=== PATIENT | female | born 1950 | race Caucasian/White ===

== ENCOUNTER 2022-05-15 22:52 | Inpatient (IN) | payer MEDICARE, OTHER ==
[~2022-05-15] VITALS: Ht 165.1 cm; Wt 76.9 kg
[2022-05-15 23:15] LABS: BASOPHILS # (AUTO) 0.1 10^3/uL (0.0-0.1); BASOPHILS % (AUTO) 1 % (0-10); EOSINOPHILS % (AUTO) 0 % (0-10); HEMATOCRIT 47 % (35-52); HEMOGLOBIN 16.2 g/dL (11.5-16.0); LYMPHOCYTES # (AUTO) 2.6 10^3/uL (1.0-4.0); LYMPHOCYTES % (AUTO) 26 % (12-44); MEAN CORPUSCULAR HEMOGLOBIN 32 pg (25-34); MEAN CORPUSCULAR HGB CONC 35 g/dL (32-36); MEAN CORPUSCULAR VOLUME 91 fL (80-99); MEAN PLATELET VOLUME 9.1 fL (9.0-12.2); MONOCYTES # (AUTO) 0.5 10^3/uL (0.0-1.0); MONOCYTES % (AUTO) 5 % (0-12); NEUTROPHILS # (AUTO) 6.6 10^3/uL (1.8-7.8); NEUTROPHILS % (AUTO) 68 % (42-75); PLATELET COUNT 250 10^3/uL (130-400); WHITE BLOOD COUNT 9.8 10^3/uL (4.3-11.0)
[2022-05-15 23:23] LABS: POTASSIUM 3.8 MMOL/L (3.6-5.0)
[2022-05-15 23:24] LABS: CALCIUM 10.1 MG/DL (8.5-10.1)
[2022-05-15 23:25] LABS: TOTAL PROTEIN 7.5 GM/DL (6.4-8.2)
[2022-05-15 23:29] LABS: CREATININE SERUM 0.99 MG/DL (0.60-1.30)
[2022-05-15 23:35] LABS: BILIRUBIN,URINE NEGATIVE (NEGATIVE); CLARITY,URINE CLEAR; COLOR,URINE YELLOW; GLUCOSE, URINE (UA) 1+ (NEGATIVE); KETONES,URINE NEGATIVE (NEGATIVE); LEUKOCYTE ESTERASE ,URINE 2+ (NEGATIVE); NITRITE,URINE NEGATIVE (NEGATIVE); PROTEIN,URINE 1+ (NEGATIVE)
[2022-05-15 23:36] VITALS: BP 210/115
[2022-05-15 23:39] LABS: FIBRIN DEGRADATION PRODUCTS 1.21 UG/ML (0.00-0.49); PROTHROMBIN TIME PATIENT 13.6 SEC (12.2-14.7)
[2022-05-15 23:49] LABS: BACTERIA,URINE NEGATIVE /HPF; RBC,URINE RARE /HPF; WBC,URINE 25-50 /HPF
[2022-05-16] VITALS (11 sets, daily range): BP systolic 113–178; BP diastolic 72–149
--- NOTE | 2022-05-16 00:17 | ED Neurological Problem ---
General Chief Complaint: Neurological Problems Stated Complaint: STROKE LIKE SYMPTOMS Nursing Triage Note: pt presents to ED via EMS with right-sided facial droop, slurred speech, right-sided weakness that developed after a fall this afternoon. LKWT is 1400. according to , pt has had multiple falls in the last 48hours. pt takes daily aspirin 81mg. pt a&ox3 Source: patient, family, EMS Exam Limitations: clinical condition History of Present Illness Date Seen by Provider: May 16, 2022 Time Seen by Provider: 22:54 Initial Comments Here by EMS with report of right-sided facial droop, slurred speech and right- sided weakness after fall this afternoon. Reportedly she has had a few falls over the last couple of days. arrives and notes that she has not been right since at least 2 PM. EMS reports right facial droop, right arm and leg weakness but does follow simple commands. They do note that she is hypertensive and blood sugars were in the 200s range. EMS reported there was a lot of medicines around the house but they are unsure if she is taking any. reports that she follows with Dr. ALVARADO but does not see her regularly and does not really have medical problems but is not really following up with her doctor to be treated for any. states that she does not smoke, drink or do drugs. Patient seems to understand and is able to follow simple commands. Timing/Duration: other (10 hours ago) Severity: moderate Associated Symptoms: confusion; No fever/chills; slurred speech, weakness Allergies and Home Medications Allergies Coded Allergies: No Known Drug Allergies (Unverified , 05/15/22) Patient Home Medication List Home Medication List Reviewed: Yes Review of Systems Review of Systems Constitutional: No fever Ears, Nose, Mouth, Throat: see HPI Respiratory: No cough, No short of breath Cardiovascular: No chest pain Gastrointestinal: No nausea, No vomiting Psychiatric/Neurological: Weakness Past Brzcrmf-Rcwatc-Rrqyoi Hx Patient Social History Tobacco Use?: No Substance use?: No Alcohol Use?: No Pt feels they are or have been: No Immunizations Up To Date Influenza Vaccine Up-to-Date: Yes; Up-to-Date Past Medical History Surgeries: No Cardiac: Yes Hypertension Family Medical History Reviewed Nursing Family Hx No Pertinent Family Hx Physical Exam Vital Signs Vital Signs - First Documented 05/15/22 23:10 Temp 37.1 Pulse 96 Resp 22 B/P (MAP) 210/107 (141) Pulse Ox 98 O2 Delivery Room Air Capillary Refill : Less Than 3 Seconds Height, Weight, BMI Height: '" Weight: lbs. oz. kg; BMI Method: General Appearance: WD/WN, mild distress HEENT: PERRL/EOMI, other (Right facial droop and motor weakness right side of tongue.) Neck: full range of motion, supple Respiratory: lungs clear, normal breath sounds Cardiovascular: regular rate, rhythm, no murmur Gastrointestinal: non tender, soft Back: no CVA tenderness Extremities: non-tender, other (Weakness right arm and right leg) Neurologic/Psychiatric: alert, facial droop (Right face), motor weakness (Right arm and right leg) Crainal Nerves: abnormal speech, facial droop, facial weakness Coordination/Gait: ABN nose to finger (R) Motor/Sensory: pronator drift (R), weak motor strength RUE, weak motor strength RLE Skin: normal color, warm/dry Progress/Results/Core Measures Results/Orders Lab Results Laboratory Tests Test 05/15/22 23:00 05/15/22 23:01 05/15/22 23:21 05/15/22 23:30 Range/Units Glucometer 223 H 70-110 MG/DL White Blood Count 9.8 4.3-11.0 10^3/uL Red Blood Count 5.15 H 3.80-5.11 10^6/uL Hemoglobin 16.2 H 11.5-16.0 g/dL Hematocrit 47 35-52 % Mean Corpuscular Volume 91 80-99 fL Mean Corpuscular Hemoglobin 32 25-34 pg Mean Corpuscular Hemoglobin Concent 35 32-36 g/dL Red Cell Distribution Width 12.4 10.0-14.5 % Platelet Count 250 130-400 10^3/uL Mean Platelet Volume 9.1 9.0-12.2 fL Immature Granulocyte % (Auto) 0 % Neutrophils (%) (Auto) 68 42-75 % Lymphocytes (%) (Auto) 26 12-44 % Monocytes (%) (Auto) 5 0-12 % Eosinophils (%) (Auto) 0 0-10 % Basophils (%) (Auto) 1 0-10 % Neutrophils # (Auto) 6.6 1.8-7.8 10^3/uL Lymphocytes # (Auto) 2.6 1.0-4.0 10^3/uL Monocytes # (Auto) 0.5 0.0-1.0 10^3/uL Eosinophils # (Auto) 0.0 0.0-0.3 10^3/uL Basophils # (Auto) 0.1 0.0-0.1 10^3/uL Immature Granulocyte # (Auto) 0.0 0.0-0.1 10^3/uL Sodium Level 139 135-145 MMOL/L Potassium Level 3.8 3.6-5.0 MMOL/L Chloride Level 106 98-107 MMOL/L Carbon Dioxide Level 18 L 21-32 MMOL/L Anion Gap 15 H 5-14 MMOL/L Blood Urea Nitrogen 12 7-18 MG/DL Creatinine 0.99 0.60-1.30 MG/DL Estimat Glomerular Filtration Rate 61 BUN/Creatinine Ratio 12 Glucose Level 279 H 70-105 MG/DL Calcium Level 10.1 8.5-10.1 MG/DL Corrected Calcium 10.1 8.5-10.1 MG/DL Total Bilirubin 1.0 0.1-1.0 MG/DL Aspartate Amino Transf (AST/SGOT) 29 5-34 U/L Alanine Aminotransferase (ALT/SGPT) 30 0-55 U/L Alkaline Phosphatase 128 40-136 U/L Troponin I 0.028 <0.028 NG/ML Total Protein 7.5 6.4-8.2 GM/DL Albumin 4.0 3.2-4.5 GM/DL Prothrombin Time 13.6 12.2-14.7 SEC INR Comment 1.0 0.8-1.4 Activated Partial Thromboplast Time 29 24-35 SEC D-Dimer 1.21 H 0.00-0.49 UG/ML Urine Color YELLOW Urine Clarity CLEAR Urine pH 7.0 5-9 Urine Specific [place] 1.010 L 1.016-1.022 Urine Protein 1+ H NEGATIVE Urine Glucose (UA) 1+ H NEGATIVE Urine Ketones NEGATIVE NEGATIVE Urine Nitrite NEGATIVE NEGATIVE Urine Bilirubin NEGATIVE NEGATIVE Urine Urobilinogen 0.2 < = 1.0 MG/DL Urine Leukocyte Esterase 2+ H NEGATIVE Urine RBC (Auto) TRACE-I H NEGATIVE Urine RBC RARE /HPF Urine WBC 25-50 H /HPF Urine Crystals NONE /LPF Urine Bacteria NEGATIVE /HPF Urine Casts NONE /LPF Urine Mucus NEGATIVE /LPF Urine Culture Indicated YES My Orders Orders - DENVER ARITA MD Cbc With Automated Diff (05/15/22 22:59) Protime With Inr (05/15/22:59) Partial Thromboplastin Time (05/15/22 22:59) Comprehensive Metabolic Panel (05/15/22 22:59) Fibrin Degradation Products (05/15/22 22:59) Troponin I Paulina (05/15/22 22:59) Ua Culture If Indicated (05/15/22:59) Chest 1 View, Ap/Pa Only (05/15/22:59) Ekg Tracing (05/15/22:59) Nothing By Mouth (05/16/22 Breakfast) Accucheck Stat ONCE (05/15/22:59) Ed Iv/Invasive Line Start (05/15/22 22:59) Ed Iv/Invasive Line Start (05/15/22 22:59) Vital Signs Stroke Patient Q15M (05/15/22 22:59) Ct Head Wo-R/O Stroke (05/15/22:59) O2 (05/15/22 22:59) Intake & Output 06,14,22 (05/15/22 22:59) Monitor-Rhythm Ecg Trace Only (05/15/22 22:59) Dysphagia Screening Tool Q10MX1 (05/15/22 22:59) Ct Angio Head/Neck (05/15/22 23:41) Urine Culture (05/15/22 23:30) Iohexol Injection (Omnipaque 350 Mg/Ml 1 (05/16/22 00:30) Received Contrast (Hold Metformin- Contr (05/16/22 00:30) Ns (Ivpb) (Sodium Chloride 0.9% Ivpb Bag (05/16/22 00:30) Ns (Ivpb) (Sodium C... W/Nicardipine Iv (05/16/22 01:30) Nicardipine Iv (Pyxis Drip Kit (Cardene (05/16/22 01:33) Ns (Ivpb) (Sodium Chloride 0.9%) (05/16/22 01:33) Medications Given in ED Current Medications Medications Dose Ordered Sig/Eliot Route Start Time Stop Time Status Last Admin Dose Admin Iohexol 75 ml ONCE ONCE IV 05/16/22 00:30 05/16/22 00:50 DC 05/16/22 00:28 75 ML Sodium Chloride 100 ml ONCE ONCE IV 05/16/22 00:30 05/16/22 00:50 DC 05/16/22 00:28 80 ML Vital Signs/I&O 05/15/22 05/15/22 05/16/22 05/16/22 23:10 23:36 00:23 01:48 Temp 37.1 Pulse 96 89 84 Resp 22 19 11 B/P (MAP) 210/107 (141) 210/115 191/99 (129) 211/106 Pulse Ox 98 95 93 O2 Delivery Room Air Room Air 05/16/22 05/16/22 05/16/22 05/16/22 02:15 02:17 02:21 02:27 Temp 36.6 Pulse 100 100 99 Resp 24 22 B/P (MAP) 178/149 Pulse Ox 96 95 05/16/22 05/16/22 05/16/22 02:30 02:30 02:35 Pulse 101 92 Resp 12 20 B/P (MAP) 173/98 173/98 184/89 Pulse Ox 95 92 O2 Delivery Room Air Blood Pressure Mean: 141 FSBG Bedside Testing Finger Stick Blood Glucose: 223 Progress Progress Note : Progress Note Seen and evaluated. Stroke protocol initiated. IV x2, labs including CBC, CMP, D-dimer, coags and UA, chest x-ray, CT head rule out stroke ordered. Monitor patient. Patient is outside of tPA window as last known well time was at 1400 today but has had multiple falls over the last 2 to 3 days and has been not acting right in that period of time. She does have longstanding history of medical problems but does not really follow-up with the doctor well and usually sees Dr. ALVARADO. Noted to be quite hypertensive on arrival. Monitor patient. Initial stroke scale 8 Differential includes ischemic versus hemorrhagic stroke, electrolyte abnormality, intracranial mass 2338: I did discuss CT scan results with the radiologist. I do not see any intracranial hemorrhage on my interpretation. Radiology does report possibility of subacute stroke in the left victoria radiata. We will get CT angiogram of the head and neck. Chest x-ray shows no acute findings on my interpretation. Labs reviewed and normal white count with concentrated hemoglobin noted. Coags normal with D-dimer slightly elevated at 1.21. Chemistries are okay overall except for glucose is elevated at 279 and LFTs are normal. UA does show 2+ leuks and 25-50 WBCs with 0 bacteria and no nitrites. We will give normal saline 500 mL bolus to clear contrast. Monitor patient. Will need admission to the ICU. 0120: CT angiogram completed but report pending. I do not see any significant large vessel occlusion on my interpretation pending radiology report. I did make contact with the stroke neurologist at [facility], Dr. Torres initiated at 0111. We reviewed all current findings and data including the CT of the head as well as CT angiogram. We did cloud the images to and he did review those images. No obvious large vessel occlusion on his evaluation of CT angiogram of head neck. Stroke findings most consistent with hypertensive stroke and he is recommending that we do bring blood pressure down into the range of around 160. We will initiate nicardipine drip to bring blood pressure 1 50-170 systolic with further blood pressure management to a more normal range tomorrow. He agrees with aspirin. Patient did fail dysphagia screen so we will give rectal aspirin 300 mg DE now. All findings and concerns discussed with patient who agrees to admission. I did discuss the case with Dr. Sterling, on-call for hospitalist service and she accepts patient for admission to the ICU. I will discuss the case with the eICU team as well. 0156: Discussed with the eICU team. Findings and recommendations reviewed. Initial ECG Impression Date: May 15, 2022 Initial ECG Impression Time: 23:21 Initial ECG Rate: 91 Initial ECG Rhythm: Normal Sinus Comment Sinus rhythm with occasional PVCs. Low voltage in lead II. No obvious ST elevation WA. Left axis deviation. LVH noted. Interpreted by me. Diagnostic Imaging Diagonstic Imaging: CT Plain Films/CT/US/NM/MRI: head Comments Patchy areas of hypoattenuation in the left victoria radiata are compatible with an infarct which is favored to be remote or subacute. MRI may be considered for further characterization, if prior imaging is unavailable for comparison. No acute cortical infarct. No acute intracranial hemorrhage or significant mass e ffect. Chronic and involutional changes. This was discussed with the radiologist on-call at 2338. Reviewed: Reviewed Night Hawk Study, Reviewed by Me, Discussed w/Radiologist Diagonstic Imaging: CT Plain Films/CT/US/NM/MRI: head, other Comments CT angiogram head and neck results called at 0417. No significant stenosis noted. Discussed with radiologist. Reviewed: Reviewed by Me, Discussed w/Radiologist Critical Care Note Critical Care Start Time: 22:54 Stop Time: 01:55 Total Time (minutes) 45 Departure Communication (Admissions) Time/Spoke to Admitting Phy: 01:27 Time/Spoke to Consulting Phy: 01:55 Impression Primary Impression: Acute CVA (cerebrovascular accident) Additional Impression: Hypertensive emergency Disposition: 09 ADMITTED INPATIENT Condition: Critical Admissions Decision to Admit Reason: Admit from ER (General) Decision to Admit/Date: May 16, 2022 Time/Decision to Admit Time: 01:27 DENVER ARITA MD May 16, 2022 00:16
[2022-05-16] MEDS ORDERED: HOLD METFORMIN - RECEIVED CONTRAST 20 ML VIAL IV SCH (00:30)
[2022-05-16] MEDS ORDERED: IOHEXOL 350 MG/ML 100 ML (OMNIPAQUE 350) VIAL IV ONE (00:30)
[2022-05-16] MEDS ORDERED: NS 100 ML (IVPB) BAG IV ONE (00:30)
[2022-05-16] MEDS ORDERED: niCARdipine IV 50 MG in NS (IVPB) 230 ML IV SCH (01:30)
[2022-05-16] MEDS ORDERED: NS (IVPB) 250 ML ONE (01:33)
[2022-05-16] MEDS ORDERED: niCARdipine IV PYXIS DRIP KIT = 50 MG X 2 VIALS ONE (01:33)
[2022-05-16] MEDS ORDERED: ONDANSETRON 4 MG/2 ML (SDV) Z0FRAN IV PRN (03:15)
[2022-05-16] MEDS ORDERED: CATHETER FLUSH 10 ML SYR IVP PRN (03:15)
[2022-05-16] MEDS ORDERED: NS IV 500 ML 500 ML IV PRN (03:15)
[2022-05-16] MEDS ORDERED: NS IV 1000 ML 1,000 ML IV SCH (03:15)
--- NOTE | 2022-05-16 04:30 | Tele-ICU Progress Note ---
Progress Note 72F with HTN admitted with subacute CVA. Presented with acute right sided facial droop, slurred speech and R weakness after a fall this afternoon. Has had multiple falls over the past several days. Last normal was prior to 1400. On arrival to ED BP in the 200s/100s. Per ED report, CT head with patchy areas of hypoattenuation concerning for subacute CVA. No large vessel occlusions on CTA. On arrival to ICU patient is improving. She is alert, answering appropriately. Does have some word finding problems. Right sided weakness is improving. A/P: - CVA: Out of the window for intervention. Per stroke consult, maintain SBP around 160. Nicardipine ongoing. - HTN: cardene gtt with goal SBP 130-160 per teleStroke - hyperglycemia: sliding scale, A1C Patient assessed via real time audiovisual communication system. CCT 17 min Focused Exam Height, Weight, BMI Height: '" Weight: lbs. oz. kg; 28.21 BMI Method: LENNY PALMER MD May 16, 2022 04:30
[2022-05-16] MEDS ORDERED: cefTRIAXone 1 GM PRE-MIX 50 ML IV SCH (05:00)
[2022-05-16] MEDS ORDERED: MAGNESIUM 1 GM/100 ML IVPB 100 ML IV SCH (06:00)
[2022-05-16] MEDS ORDERED: KCL 20 MEQ TAB (K-DUR) PO SCH (06:00)
[2022-05-16] MEDS ORDERED: POTASSIUM CL 10MEQ/50ML IVPB 50 ML IV SCH (06:00)
--- NOTE | 2022-05-16 06:03 | Diagnostic Imaging Report ---
PROCEDURE: CT head wo r/o stroke. TECHNIQUE: Multiple contiguous axial images were obtained through the brain without the use of intravenous contrast. Auto Exposure Controls were utilized during the CT exam to meet ALARA standards for radiation dose reduction. INDICATION: Acute neurologic deficit with facial drooping. FINDINGS: The ventricles are normal in size, shape and position. There are no masses or hemorrhages. There are no extra-axial fluid collections. There is decreased density in the left victoria radiata consistent with ischemic injury. IMPRESSION: There is a 3.4 x 2.2 cm area of decreased density in left victoria radiata consistent with ischemic injury. I agree with preliminary interpretation. Dictated by: Dictated on workstation # [id number]
--- NOTE | 2022-05-16 06:07 | Diagnostic Imaging Report ---
Indication: Facial droop Portable chest 7:21 PM Heart size and pulmonary vascularity are normal. Lungs are clear. There are no effusions or pneumothoraces. IMPRESSION: No acute abnormalities in the chest Dictated by: Dictated on workstation # [id number]
[2022-05-16] MEDS: inSUlin ASPART (NovoLOG) 1 UNIT/0.01 ML (CHARGE PER UNIT) SQ SCH ×2 (06:18→12:21)
--- NOTE | 2022-05-16 06:43 | Diagnostic Imaging Report ---
PROCEDURE: CT angiography of the head and CT angiography of the neck with and without contrast. TECHNIQUE: Contiguous noncontrast images were obtained from the skull base through the vertex. After intravenous contrast administration, helical CT angiography of the neck was performed. Source data was reformatted into 3D MIP projections. Delayed post contrast acquisition was also obtained. Auto Exposure Controls were utilized during the CT exam to meet ALARA standards for radiation dose reduction. INDICATION: "Stroke" CT HEAD: Delayed postcontrast enhanced head CT shows multifocal periventricular white matter disease likely small vessel sequelae as well as multiple greater left ganglier and thalamic lacunar infarcts of uncertain acuity. No sulcal effacement or corine cortical edema and no abnormal parenchymal or meningeal enhancement. There is patency of the dural venous sinuses. CT ANGIOGRAM NECK: There is conventional branching of the great vessels. The right cervical vertebral dominant the left is very small throughout and difficult to visualize. Bilateral common carotids patent. There is mild atherosclerotic changes at the left greater than right carotid bulbs without stenosis. The cervical internal carotids widely patent throughout. No cervical arterial dissection identified or appreciable segmental occlusion. Again visualization of the diminutive left vertebral artery is difficult at multiple levels. CT ANGIOGRAM HEAD: A tiny intradural left vertebral artery probably terminates as the PICA but is very difficult to visualize. Calcified plaque in the intradural right vertebral non-stenosing. The basilar patent. The [employer] segments patent. The intracranial ICAs showed diffuse calcified plaque throughout their cavernous segments with less than 50% stenosis. The A1 segments, the A common, the anterior cerebral arteries distally are patent. Bilateral middle cerebral arterial segments and primary branches patent. No large vessel occlusion or thrombus. Impression: Multiple lacunar infarcts in the basal ganglia of uncertain acuity. Some atrophy and chronic appearing white matter disease. No hemorrhage. CT angio neck shows a diminutive left vertebral and a dominant right vertebral. The very small left vertebral caliber limits its visualization at multiple segments. CT angiogram head showed intracranial carotid atherosclerotic vascular calcifications without hemodynamically significant stenosis. No appreciable large vessel occlusion or thrombus. No aneurysm identified. There is likely variant anatomy with termination of the diminutive left vertebral as the PICA. Dictated by: Dictated on workstation # [id number]
[2022-05-16] MEDS: niCARdipine IV 50 MG in NS (IVPB) 230 ML IV SCH ×2 (07:14→10:30)
[2022-05-16] MEDS ORDERED: ACETAMINOPHEN 325 MG TABLET PO PRN (07:45)
--- NOTE | 2022-05-16 08:13 | Tele-ICU Progress Note ---
Subjective Date Seen by a Provider: May 16, 2022 Time Seen by a Provider: 08:07 Subjective/Events-last exam (Tele-ICU Physician , Progress Note ) Service provided via interactive audio and video telecommunications E-CARE system to a patient admitted to ICU bed in [facility]. Patient is seen today due to persistent need of ICU care Available chart/ vitals / labs / Images reviewed Video assessment done using teleICU camera, rest of exam as per RN Discussed with RN Events overnight : Afebrile hemodynamically stable Respiratory - I/O = pos Drips: LR 50 Pressors- IV Nicardipine @ 2.5, BP is 137/ Admitted on 05/15 with subacute CVA-out of for intervention, Marked HTN Now on IV Nicardipine @ ALert, having problems with word retrieval seen by speech, given minced and moist diet Sepsis Event Evaluation Height, Weight, BMI Height: '" Weight: lbs. oz. kg; 28.21 BMI Method: Exam Exam Patient acknowledged, consented, and participated in this virtual visit which was conducted using real time audio/video Vital Signs Date Time Temp Pulse Resp B/P (MAP) Pulse Ox O2 Delivery O2 Flow Rate FiO2 05/16/22 07:00 93 144/76 (104) 94 05/16/22 07:00 90 05/16/22 06:45 92 20 142/74 (104) 93 05/16/22 06:30 92 20 141/74 96 05/16/22 06:15 93 149/75 95 05/16/22 06:00 95 155/78 94 05/16/22 05:45 96 154/75 95 05/16/22 05:35 113/86 05/16/22 05:30 95 20 113/86 96 05/16/22 05:30 95 113/86 96 05/16/22 05:15 96 157/72 93 05/16/22 05:00 96 148/78 05/16/22 04:45 95 160/75 (96) 95 05/16/22 04:45 95 160/75 95 05/16/22 04:30 98 159/76 (103) 94 05/16/22 04:15 96 151/77 (97) 93 05/16/22 04:00 101 24 153/80 (107) 94 05/16/22 03:45 98 158/80 (106) 94 05/16/22 03:30 98 22 150/81 (104) 93 Room Air 05/16/22 03:29 153/87 05/16/22 03:15 101 20 153/87 (117) 96 Room Air 05/16/22 03:10 Room Air 05/16/22 03:00 98 20 155/76 (103) 95 05/16/22 02:45 97 22 154/81 (109) 94 05/16/22 02:41 96 22 163/79 (107) 94 Room Air 05/16/22 02:35 92 20 184/89 92 Room Air 05/16/22 02:30 173/98 05/16/22 02:30 101 12 173/98 95 05/16/22 02:27 99 22 95 05/16/22 02:21 100 05/16/22 02:17 100 24 178/149 96 05/16/22 02:15 36.6 05/16/22 01:48 211/106 05/16/22 00:23 84 11 191/99 (129) 93 Room Air 05/15/22 23:36 89 19 210/115 95 05/15/22 23:10 37.1 96 22 210/107 (141) 98 Room Air I & O 05/16/22 07:00 Intake Total 50 ml Output Total 1750 ml Balance -1700 ml Height & Weight Height: '" Weight: lbs. oz. kg; 28.21 BMI Method: General Appearance: No Apparent Distress Respiratory: Lungs Clear Cardiovascular: Regular Rate, Rhythm, No Edema Capillary Refill: Less Than 3 Seconds Gastrointestinal: normal bowel sounds, non tender, soft Neurologic/Psychiatric: Other (right facial droop, right sided weakness) Results Lab Laboratory Tests 05/15/22 23:01 Assessment/Plan Assessment/Plan 72 yo F with subacute CVA and uncontrolled HTN, will continue on IV nicardipine, target is 130-160 speech and PT to see, need to change to oral HTN meds at later date Hb 16.2, might indicate reactive polycythemia from nocturnal hypoxia from [facility] Critical Care: Critically Ill Patient Time spent with patient (mins): 25 LYNNE BRYAN MD May 16, 2022 08:13
[2022-05-16 08:21] LABS: CHOLESTEROL 198 MG/DL (< 200); HDL CHOLESTEROL 62 MG/DL (40-60); TRIGLYCERIDES 61 MG/DL (<150); VLDL CHOLESTEROL 12 MG/DL (5-40)
[2022-05-16] MEDS ORDERED: ASPIRIN 325 MG (5 GR) TABLET PO SCH (09:00)
--- NOTE | 2022-05-16 09:23 | ST Dysphagia Evaluation ---
Speech Evaluation-General Medical Diagnosis CVA Onset Date: May 16, 2022 Therapy Diagnosis Therapy Diagnosis: oropharyngeal dysphagia Precautions Precautions: Fall, Aspiration Precautions/Isolations: Aspiration, Fall Prevention Referral Referring Physician: Laura Sterling Reason for Referral: Evaluation/Treatment Medical History Pertinent Medical History: CVA Current History CVA Reviewed History: Yes Social History Home: Single Level Current Living Status: Spouse Speech PLF/Current-Dysphagia Prior Level of Function Pt reported no diet modifications or recommendations. Pt reported independent self-feeding with regular solids, thin liquids. Subjective Pt was alert and cooperative. Pt reported no PO intake today or yesterday. Nursing reported she participated in a bedside swallow with staff yesterday and was determined to be NPO. Cognitive Status Patient Orientation: Person, Eyes Open Oral Motor Skills Dentition: Natural Denture Type: Full- Upper & Lower Ability to Follow Directions: Good Oral Expression Ability: Moderate Impairment Voice Voice Phonatory-Based Quality: Hoarse Voice Pitch: Normal Voice Loudness: Normal Face Facial Symmetry: Asymmetrical right facial droop Oral-Facial Assessment Oral-Facial Dentition: Normal Labial Seal Description: Droops Right Smile: Droops Right Puff Cheeks: Reduced Strength Lingual Protrusion: Abnormal deviates right Lingual ROM: Abnormal limited elevation and effortful lateralization Lingual Strength: Abnormal weakness Gag Reflex Response: Normal Pharynx Velopharyngeal Move.: Weak on Right Volitional Dry Swallow: Yes Voluntary Cough: Yes weak Can Clear Throat Volitionally: Yes weak Productive Cough: Yes Productive Throat Clear: Yes Dysphagia Evaluation Consistencies Presented: Thin Liquid, Mechanical Soft, Ground, Pureed Tolerated mech soft and puree solids with no overt s/s aspiration. Oral Phase: Oral Residue minimal residue observed. clearance with liquid. Pharyngeal Phase: Multiple Swallow Attempts Funct. Velo/Pharyngeal Symptom: Cough After Swallow cough x1/10 thin liquid trials via straw due to large bolus intake. Burped x1 following PO intake. Dietary Recommendations: Mechanical Soft Liquid Recommendations: Thin thin liquid via straw with monitoring and verbal cues to take single sips. Mechanical soft/minced and moist solids recommended at this time due to toleration and no overt s/s aspiration. Swallowing Precautions: Decreased Rate of Oral Intake, Liquids from Straw, Oral Supervision Staff, Small Bites and Sips, Sitting Upright 90 Degrees, Sitting 90 Degrees 30 Post Intake, Tilt Head Left 94-95% O2 throughout PO trials Dysphagia Evaluation Summary Pt demostrates large bites and sips requiring frequent verbal cues to decrease rate and size of bolus. Pt demonstrates right sided weakness and was given safe swallow strategy of head tilt to left side. Mechanical soft/minced and moist solids and thin liquids via straw are recommended diet at this time. Speech therapy treatment is recommended at this time for safe swallow precautions and strategies as well as continued diet texture analysis and monitoring. Barriers to Learning fatigue Speech Short Term Goals Short Term Goals Short Term Goals 1) Pt will demonstrate adequate use of swallowing techniques or compensatory strategies (e.g. head tilt left, head turn right, effortful swallow) to eliminate s/s of laryngeal penetration and/or aspiration of mechanical soft diet/thin liquids with minimal verbal cues during 9 out of 10 therapeutic trials. 2) Pt will demonstrate the ability to adequately self-monitor swallowing skills and perform appropriate safe swallow precautions (e.g. small bites/sips, alternating consistencies, sitting upright 90 degrees, etc) to reduce s/s of aspiration in 9 out of 10 therapeutic trials Speech Assembly Inspector Goals Assembly Inspector Goals Pt will utlize compensatory strategies with optimum safety and efficiency of swallowing function on PO intake without overt s/s aspiration for the highest appropriate diet level Speech-Plan Patient/Family Goals Patient/Family Goals: advanced diet, increased oral intake Treatment Plan Speech Therapy Treatment Plan: Continue Plan of Care Treatment Duration: May 30, 2022 Frequency: 5 times per week Estimated Hrs Per Day: .25 hour per day Rehab Potential: Good Barriers to Learning: fatigue Pt/Family Agrees to Plan: Yes Safety Risks/Education Teaching Recipient: Patient Teaching Methods: Discussion Response to Teaching: Verbalize Understanding Education Topics Provided: safe swallow precautions and strategies. ST treatment services. Discharge Recommendations Home & Family Time Speech Therapy Time In: 08:46 Speech Therapy Time Out: 09:17 DATE: May 16, 2022 Total Billed Time: 31 Billed Treatment Time 1, BARB, ADDY KRAMER May 16, 2022 09:23
[2022-05-16] MEDS ORDERED: ASPI-1238 PO (09:47)
[2022-05-16] MEDS ORDERED: OMEG1CAP58 PO (09:47)
--- NOTE | 2022-05-16 10:54 | Speech Therapy Progress Note ---
Therapy Progress Note Refer to Bedside Swallow Report. Pt was seen for evaluation and treatment. Pt tolerated thin liquids via straw and mech soft/minced and moist solids. At this time, the largest barriers towards diet advancement include overall fatigue and weakness. Continue with the current plan of care: Recommendations: - Diet recommendation of thin liquid via straw. Pt requires verbal cues and monitoring to take small, single sips. - Diet recommendation of mechanical soft/minced and moist solids. Pt requires verbal cues and monitoring to take small bites and alternate consistencies for clearance of minimal oral residue. - Excellent and frequent oral care to be provided to reduce the transfer of oral bacteria to the lungs should aspiration of secretions be experienced. - Continue effortful swallowing exercise and compensatory strategies (e.g. head tilt left) - Speech pathology to continue daily evaluation of the oropharyngeal swallow response. ADDY DOMINGUEZ 17, 2023 10:54
--- NOTE | 2022-05-16 11:40 | ST Cognitive Linguistic Eval ---
Speech Evaluation-General Medical Diagnosis CVA Onset Date: May 16, 2022 Therapy Diagnosis Therapy Diagnosis: severe cognitive-lingustic impairment Precautions Precautions: Fall, Aspiration Precautions/Isolations: Aspiration, Fall Prevention Referral Referring Physician: Aiyana Dooley Reason for Referral: Evaluation/Treatment Medical History Pertinent Medical History: CVA Current History CVA Reviewed History: Yes Social History Home: Single Level Current Living Status: Spouse Speech PLF-Current Status Prior Level of Function independent, lived with spouse Subjective Pt was alert and cooperative upon entry in room. Pt was willing to participate in cognitive-linguistic evaluation Language Eval: Auditory Comprehends Simple Yes/No Ques: Functional Indent/Objects Multiple [place]: Functional Follows 1-Step Commands: Functional Follows Complex Directions: Mild Follows General Conversations: Functional Language Eval: Verbal Language Completes Spontaneous Greeting: Functional Produces Auto, Serial Info: Functional Imitates Simple Words/Phrases: Functional Word Finding: Moderate Requests Basic Needs: Functional States Basic Personal Info: Functional Expresses Complex Ideas: Moderate Objective Cognitive Domain Attention: WNL Memory: Severe Problem Solving: Severe Executive Functions: Severe Visuospatial Skills: Moderate Composite Severity Rating: Severe Clock Drawing Severity Rating: Severe Objective Formal/Standardized Tests [facility] Mental Status Examination ([facility]) Results 10/29 Oral Motor/Speech Production Pt was 100% intelligible although demonstrated some speech sound errors with self-correction. Pt's speech was slow. She was able to produce 8+ word utterances. Impression Pt scored 8/30 on the SLUMS indicating "dementia" range cognition. Pt was oriented to [place], year, and state. She had difficulty with delayed recall, problem solving, working memory, and visuospatial tasks. Speech Short Term Goals Short Term Goals Short Term Goals 1) Pt will demonstrate adequate use of swallowing techniques or compensatory strategies (e.g. head tilt left, head turn right, effortful swallow) to eliminate s/s of laryngeal penetration and/or aspiration of mechanical soft diet/thin liquids with minimal verbal cues during 9 out of 10 therapeutic trials. 2) Pt will recall novel information with 70% accuracy using learned internal/external aids and strategies with minimal verbal/visual cues. Speech Mine Captain Goals Group Home Goals 1) Pt will utlize compensatory strategies with optimum safety and efficiency of swallowing function on PO intake without overt s/s aspiration for the highest appropriate diet level 2) Pt will recall novel information independently with 80% accuracy using learned memory strategies Speech-Plan Patient/Family Goals Patient/Family Goals: return to home, improved cognition Treatment Plan Speech Therapy Treatment Plan: Continue Plan of Care Treatment Duration: May 30, 2022 Frequency: 4 times per week Estimated Hrs Per Day: .25 hour per day Rehab Potential: Good Barriers to Learning: fatigue, weakness Pt/Family Agrees to Plan: Yes Safety Risks/Education Teaching Recipient: Patient Teaching Methods: Discussion Response to Teaching: Verbalize Understanding Education Topics Provided: memory strategies, verbal cues Time Speech Therapy Time In: 11:08 Speech Therapy Time Out: 11:24 DATE: May 16, 2022 Total Billed Time: 16 Billed Treatment Time 1, ADDY ALLAN May 16, 2022 11:39
--- NOTE | 2022-05-16 11:55 | Physical Therapy Evaluation ---
PT Evaluation-General Medical Diagnosis Admission Date May 16, 2022 at 02:35 Medical Diagnosis: CVA Onset Date: May 16, 2022 Therapy Diagnosis Therapy Diagnosis: impaired mobility/weakness Precautions Precautions/Isolations: Aspiration, Fall Prevention Referral Physician: Asher Reason for Referral: Evaluation/Treatment Medical History Pertinent Medical History: CVA, DM, HTN Current History EMS secondary to multiple falls and right sided weakness Reviewed History: Yes Social History Current Living Status: Significant Other Prior Prior Level of Function SCALE: Activities may be completed with or without assistive devices. 6-Oybpmeyhnp-vktzrwd completes the activity by him/herself with no assistance from a helper. 5-Set-up or Clean-up Assistance-helper sets up or cleans up; patient completes activity. [place] assists only prior to or following the activity. 4-Supervision or Touching Assistance-helper provides verbal cues and/or touching/steadying and/or contact guard assistance as patient completes activity. Assistance may be provided throughout the activity or intermittently. 3-Partial/Moderate Assistance-helper does LESS THAN HALF the effort. [place] lifts, holds or supports trunk or limbs, but provides less than half the effort. 2-Substantial/Maximal Assistance-helper does MORE THAN HALF the effort. [place] lifts or holds trunk or limbs and provides more than half the effort. 6-Fykbwzhhy-uvonpw does ALL the effort. Patient does none of the effort to complete the activity. Or, the assistance of 2 or more helpers is required for the patient to complete the activity. If activity was not attempted, code reason: 7-Patient Refused. 9-Not Applicable-not attempted and the patient did not perform the activity before the current illness, exacerbation or injury. 10-Not Attempted due to Environmental Limitations-(lack of equipment, weather restraints, etc.). 88-Not Attempted due to Medical Conditions or Safety Concerns. Bed Mobility: 6 Transfers (B,C,W/C): 6 Gait: 6 Indoor Mobility (Ambulation): Independent Prior Devices Use: Walker Prior Device Use: cane PT Evaluation-Current Subjective Patient agrees to PT. Objective Patient Orientation: Person, Time, Situation Attachments: Rhodes Catheter, IV ROM/Strength ROM Lower Extremities bilateral LE WFL Strength Lower Extremities right knee flexion/extension 2+/5; hip flexion 2/5; DF/PF 3/5 left knee flexion/extension 3+/5; hip flexion 3+/5; DF/PF 3+/5 Integumentary/Posture Bladder Incontinence: Rhodes Cath Posture WFL Neuromuscular (Tone, Coordination, Reflexes) diminished right LE/diminished proprioception Sensory Vision: Functional Hearing: Functional Transfers Lying to Sitting/Side of Bed(Q: 2 Sit to Stand (QC): 3 Chair/Gsn-qc-Oetqw Xfer(QC): 3 Gait Mode of Locomotion: Walk Anticipated Mode of Locomotion: Walk Walk 10 feet (QC): 2 Gait Assistive Device: FWW Comments/Gait Description right LE lag due to diminished coordination Balance Sitting Static: Fair Sitting Dynamic: Fair Standing Static: Poor Standing Dynamic: Poor Assessment/Needs Patient will benefit from skilled PT to address functional strength and mobility to improve current LOF. Patient presents with right hemiparesis. Rehab Potential: Guarded PT Director Sales Training Goals Director Sales Training Goals PT Usp Goals Time Frame: May 31, 2022 Roll Left & Right (QC): 4 Sit to Lying (QC): 4 Lying-Sitting on Side/Bed(QC): 4 Sit to Stand (QC): 4 Chair/Ijk-su-Wpgip Xfer(QC): 4 Toilet Transfer (QC): 4 Walk 10 feet (QC): 3 Walk 50ft with 2 Turns (QC): 3 PT Plan Problem List Problem List: Activity Tolerance, Functional Strength, Safety, Balance, Gait, Transfer, Bed Mobility Treatment/Plan Treatment Plan: Continue Plan of Care Treatment Plan: Bed Mobility, Education, Functional Activity Ha, Functional Strength, Gait, Safety, Therapeutic Exercise, Transfers Treatment Duration: May 31, 2022 Frequency: 6 times per week Estimated Hrs Per Day: .25 hour per day Patient and/or Family Agrees t: Yes Time Time In: 1125 Time Out: 1141 DATE: May 16, 2022 Total Billed Treatment Time: 16 Total Billed Treatment 1 visit [facility] 16 min WOJCIECH SAMS PT May 16, 2022 11:55
--- NOTE | 2022-05-16 13:53 | Occupational Therapy Eval ---
OT Evaluation-General/PLF Medical Diagnosis Admission Date May 16, 2022 at 02:35 Medical Diagnosis: CVA Onset Date: May 16, 2022 Therapy Diagnosis Therapy Diagnosis: CVA, Right side weakness Precautions Precautions/Isolations: Aspiration, Fall Prevention Weight Bear Status Weight Bearing Restriction: Weight Bearing/Tolerated Referral Physician: Asher Henry Reason: Self Care, Evaluation/Treatment, Strengthening/ROM Medical History Pertinent Medical History: CVA, DM, HTN Current History CVA right side weakness, facial palsy, cognitive impaired Reviewed History: Yes Social History Home: Single Level Current Living Status: Significant Other ADL-Prior Level of Function SCALE: Activities may be completed with or without assistive devices. 6-Ggoxlegjtk-umhoofo completes the activity by him/herself with no assistance from a helper. 5-Set-up or Clean-up Assistance-helper sets up or cleans up; patient completes activity. [place] assists only prior to or following the activity. 4-Supervision or Touching Assistance-helper provides verbal cues and/or touching/steadying and/or contact guard assistance as patient completes activity. Assistance may be provided throughout the activity or intermittently. 3-Partial/Moderate Assistance-helper does LESS THAN HALF the effort. [place] lifts, holds or supports trunk or limbs, but provides less than half the effort. 2-Substantial/Maximal Assistance-helper does MORE THAN HALF the effort. [place] lifts or holds trunk or limbs and provides more than half the effort. 6-Mnvicbnop-clxbrt does ALL the effort. Patient does none of the effort to complete the activity. Or, the assistance of 2 or more helpers is required for the patient to complete the activity. If activity was not attempted, code reason: 7-Patient Refused. 9-Not Applicable-not attempted and the patient did not perform the activity before the current illness, exacerbation or injury. 10-Not Attempted due to Environmental Limitations-(lack of equipment, weather restraints, etc.). 88-Not Attempted due to Medical Conditions or Safety Concerns. Self Care: Independent Functional Cognition: Independent Drive Self: No OT Current Status Subjective ALERT AND AGREEABLE TO OT Mental Status/Objective Patient Orientation: Person, Place, Time (), Situation Attachments: Rhodes Catheter, IV, Telemetry Current Glasses/Contacts: Yes Upper Extremity ROM LUE ROM WFLS RUE SHOULDER FLEXION 30 W/ COMPENSATION, 30 ABDUCTION, ELBOW FLEX/XT WNL Upper Extremity Strength LUE +4/5, RUE -3/5 ADL-Treatment Eating (QC): 5 Oral Hygiene (QC): 4 Shower/Bathe Self (QC): 88 Upper Body Dressing (QC): 1 Lower Body Dressing (QC): 1 On/Off Footwear (QC): 2 Toileting Hygiene (QC): 1 Education OT Patient Education: Exercise program, Modified ADL techniques, Progress toward Goal/Update tx plan, Purpose of tx/functional activities, Reviewed precautions, Rehab process, Safety issues, Transfer techniques, Use of adapted equipment Teaching Recipient: Patient Teaching Methods: Demonstration, Discussion Response to Teaching: Verbalize Understanding, Reinforcement Needed OT Shaving Machine Operator Goals Shaving Machine Operator Goals Eating (QC): 6 Oral Hygiene (QC): 6 Toileting Hygiene (QC): 4 Shower/Bathe Self (QC): 4 Upper Body Dressing (QC): 4 Lower Body Dressing (QC): 4 On/Off Footwear (QC): 4 1=Demonstrate adherence to instructed precautions during ADL tasks. 2=Patient will verbalize/demonstrate understanding of assistive devices/modifications for ADL. 3=Patient will improve strength/tolerance for activity to enable patient to perform ADL's. OT Education/Plan Problem List/Assessment Assessment: Decreased Activ Tolerance, Decreased Safety Aware, Decreased UE Strength, Impaired Bed Mobility, Impaired Coordination, Impaired Funct Balance, Impaired Self-Care Skills, Restricted Funct UE ROM Discharge Recommendations Plan/Recommendations: Continue POC Therapy Discharge Recommendati: Post Acute OT Treatment Plan/Plan of Care Treatment,Training & Education: Yes Patient would benefit from OT for education, treatment and training to promote independence in ADL's, mobility, safety and/or upper extremity function for ADL's. Plan of Care: ADL Retraining, Functional Mobility, Group Exercise/Act as Ind, UE Funct Exercise/Act, UE Neuromus Re-Ed/Coord Treatment Duration: May 24, 2022 Frequency: 3 times per week (3-5 TIMES PER WEEK) Estimated Hrs Per Day: .25 hour per day Agreement: Yes Rehab Potential: Guarded UP IN CHAIR ALL NEEDS MET Time Start Time: 12:50 Stop Time: 13:13 DATE: May 16, 2022 Total Time Billed (hr/min): 23 Billed Treatment Time EVM, EX 23 MIN EVERARDO VANCE OT May 16, 2022 13:53
[2022-05-16] MEDS ORDERED: amLODIPine 10 MG (NORVASC) TAB PO ONE (14:00)
[2022-05-16] MEDS ORDERED: hydrALAZINE (APESOLINE) 20 MG/ML VIAL IV PRN (14:00)
[2022-05-16] MEDS ORDERED: amLODIPine 10 MG (NORVASC) TAB ONE (14:00)
[2022-05-16] MEDS ORDERED: ATOR80TA76 PO (14:02)
[2022-05-16] MEDS ORDERED: inSUlin ASPART (NovoLOG) 1 UNIT/0.01 ML (CHARGE PER UNIT) SQ SCH (16:00)
[2022-05-17] MEDS ORDERED: amLODIPine 10 MG (NORVASC) TAB PO SCH (09:00)
--- NOTE | 2022-05-17 19:15 | Short Stay Summary-Hospitalist ---
History of Present Illness HPI/Chief Complaint Karena Kwong is a 72 year old female with no known past medical history who presented after a fall. She was also having slurred speech. She had a facial droop. She was feeling weak. She does not take any medications regularly. She does not follow with a physician. She denies fevers. She denies shortness of breath. She denies chest pain. She denies abdominal pain. Source: patient Exam Limitations: no limitations Date Seen 05/16/22 Time Seen by a Provider: 09:35 Attending Physician Vera Lim MD PCP Admitting Physician: Laura Sterling DO Attending Physician: Gold Lima MD Referring Physician Date of Admission May 16, 2022 at 02:35 Home Medications & Allergies Home Medications Reviewed patient Home Medication Reconciliation performed by pharmacy medication reconciliations casting technician and/or nursing. Patients Allergies have been reviewed. Allergies Allergies Coded Allergies No Known Drug Allergies (Unverified05/15/22) Past Evtkeoh-Ubmenw-Tnplfh Hx Patient Social History Tobacco Use?: No Smoking Status: Never a Smoker Smokeless Tobacco Frequency: Never a User Use of E-Cig and/or Vaping Demarcus: Never a User Substance use?: No Alcohol Use?: No Pt feels they are or have been: No Current Status status: No status: No Advance Directives: No Communicates: Verbally Primary Language: Yoruba Preferred Spoken Language: Yoruba Is interpretation needed?: No Sensory deficits: Vision impairment Implanted or Applied Medical D: None Past Medical History Hypertension Family Medical History Reviewed Nursing Family Hx No Pertinent Family Hx Review of Systems Constitutional: weakness Respiratory: no symptoms reported Cardiovascular: no symptoms reported Gastrointestinal: no symptoms reported Physical Exam Physical Exam Vital Signs Vital Signs - First Documented 05/15/22 23:10 Temp 37.1 Pulse 96 Resp 22 B/P (MAP) 210/107 (141) Pulse Ox 98 O2 Delivery Room Air Capillary Refill : Less Than 3 Seconds Height, Weight, BMI Height: '" Weight: lbs. oz. kg; 28.21 BMI Method: General Appearance: No Apparent Distress, WD/WN HEENT: PERRL/EOMI, Pharynx Normal Neck: Normal Inspection, Supple Respiratory: Lungs Clear, No Respiratory Distress Cardiovascular: Regular Rate, Rhythm, No Edema, No Murmur Gastrointestinal: Normal Bowel Sounds, Non Tender, Soft Extremity: Normal Inspection, No Pedal Edema Neurologic/Psychiatric: Alert, Facial Droop, Motor Weakness Skin: Normal Color, Warm/Dry Results Results/Procedures Labs Laboratory Tests 05/15/22 23:01 Patient resulted labs reviewed. Imaging: Reviewed Imaging Report Short Stay Diagnosis Discharge Diagnosis-Short Stay Admission Diagnosis Acute ischemic stroke Final Discharge Diagnosis Acute ischemic stroke Conclusion Plan Acute ischemic stroke HTN emergency UTI Started on new antihypertensive regimen Started on insulin Rocephin PT/OT Transfer to IRU Diagnosis/Problems Diagnosis/Problems (1) Acute CVA (cerebrovascular accident) Status: Acute (2) Hypertensive emergency Status: Acute (3) T2DM (type 2 diabetes mellitus) Status: Acute Qualifiers: Qualified Codes: E11.65 - Type 2 diabetes mellitus with hyperglycemia (4) UTI (urinary tract infection) Status: Acute GOLD LIMA MD May 17, 2022 19:15
== END 2022-05-16 14:25 | DRG 65 ==
LOC: ER 22:55 → ICU 05-16 02:35
PROVIDERS: ADMIT Internal Medicine; ATTEND Internal Medicine
DX: I63.9 Cerebral infarction, unspecified (principal); I16.1 Hypertensive emergency; N39.0 Urinary tract infection, site not specified; R47.81 Slurred speech; I10 Essential (primary) hypertension; R29.810 Facial weakness; R29.708 NIHSS score 8; E11.65 Type 2 diabetes mellitus with hyperglycemia
CPT/HCPCS: 36415; 51702; 70450; 70496; 70498; 71045; 80053; 80061; 81000; 82947; 83036; 84484; 85025; 85379; 85610; 85730; 87081; 87088; 93005; 93041; 93306

== ENCOUNTER 2022-05-16 13:52 | Inpatient (IN) | payer MEDICARE, OTHER ==
[~2022-05-16] VITALS: Ht 165.1 cm; Wt 77.1 kg
[~2022-05-16 13:52] MED LIST: ASPI-1238 PO; HOLD METFORMIN - RECEIVED CONTRAST 20 ML VIAL IV SCH; OMEG1CAP58 PO
[2022-05-16] MEDS ORDERED: ATOR80TA76 PO (14:02)
[2022-05-16 15:12] VITALS: BP 166/92
[2022-05-16 15:13] VITALS: BP 141/81
[2022-05-16] MEDS ORDERED: FLEET ENEMA ADULT 1 EA BTL PR PRN (15:15)
[2022-05-16] MEDS ORDERED: ONDANSETRON 4 MG (ZOFRAN) ORAL DISSOLVE TAB PO PRN (15:15)
[2022-05-16] MEDS ORDERED: guaiFENesin/CODEINE (ROBITUSSIN AC) 10ML UDC PO PRN (15:15)
[2022-05-16] MEDS ORDERED: DOCUSATE SODIUM 100 MG (COLACE) CAP PO PRN (15:15)
[2022-05-16] MEDS ORDERED: LACTULOSE SYRUP 10GM/15ML (ENULOSE) 30ML UDC PO PRN (15:15)
[2022-05-16] MEDS ORDERED: ALPRAZolam 0.25 MG (XANAX) TAB PO PRN (15:15)
[2022-05-16] MEDS ORDERED: BISACODYL 10 MG SUPP (DULCOLAX) PR PRN (15:15)
[2022-05-16] MEDS ORDERED: LOPERAMIDE 2 MG (IMODIUM) TABLET PO PRN (15:15)
[2022-05-16] MEDS ORDERED: diphenhydrAMINE 25 MG TAB (BENADRYL) PO PRN (15:15)
--- NOTE | 2022-05-16 15:20 | PM&R Post Admission Assessment ---
PM&R HP Date of Visit: May 16, 2022 Time of Visit: 15:00 History of Present Illness CC: CVA HPI: This is a 72yoWF former clinic patient of Dr Alvarado but has not received any medical care for many years who presented to the ER with right sided weakness and severe HTN requiring Cardene drip. (per ER report: Here by EMS with report of right-sided facial droop, slurred speech and right-sided weakness after fall this afternoon. Reportedly she has had a few falls over the last couple of days. arrives and notes that she has not been right since at least 2 PM. EMS reports right facial droop, right arm and leg weakness but does follow simple commands. They do note that she is hypertensive and blood sugars were in the 200s range. EMS reported there was a lot of medicines around the house but they are unsure if she is taking any. reports that she follows with Dr. ALVARADO but does not see her regularly and does not really have medical problems but is not really following up with her doctor to be treated for any. states that she does not smoke, drink or do drugs. Patient seems to understand and is able to follow simple commands.) Patient is now doing well and BP is fairly well controlled on multiple meds. HGA1C was added to meds and MRI and carotid USG was reviewed. Patient did not meet criteria for tPa. Past Gugomch-Xbwhbn-Uxjdiv Hx Past Med/Social Hx: Reviewed Nursing Past Med/Soc Hx, Reviewed and Corrections made Patient Social History Marrital Status: Employed/Student: retired Alcohol Use: Denies Use Smoking Status: Never a Smoker Past Medical History Cardiac: Hypertension Neurological: Stroke Family History No Pertinent Family Hx PM&R Allergy/Meds/Data Review Allergies Coded Allergies: No Known Drug Allergies (Unverified , 05/15/22) Home Medications Scheduled Aspirin (Aspirin EC), 81 MG PO DAILY, (Reported) Atorvastatin Calcium (Atorvastatin Calcium), 80 MG PO HS [place]-3 Fatty Acids/Fish Oil ([place] 3 1,000 mg Softgel), 1 EACH PO DAILY, (Reported) Current Medications Current Medications Reviewed Review of Systems Constitutional: see HPI, dizziness, malaise, weakness EENTM: no symptoms reported Respiratory: no symptoms reported Cardiovascular: no symptoms reported Gastrointestinal: no symptoms reported Genitourinary: no symptoms reported Musculoskeletal: back pain, joint pain Skin: no symptoms reported Psychiatric/Neurological: Anxiety, Depressed, Numbness, Weakness All Other Systems Reviewed Negative Unless Noted: Yes Physical Exam Physical Exam Vital Signs Vital Signs - First Documented 05/16/22 15:12 Temp 36.4 Pulse 104 Resp 18 B/P (MAP) 166/92 (116) Pulse Ox 94 O2 Delivery Room Air Capillary Refill : Height, Weight, BMI Height: '" Weight: lbs. oz. kg; 28.21 BMI Method: General Appearance: No Apparent Distress, WD/WN, Chronically ill, Obese Eyes: Bilateral Eye Normal Inspection, Bilateral Eye PERRL HEENT: PERRL/EOMI, Normal ENT Inspection, Pharynx Normal Neck: Full Range of Motion, Normal Inspection, Non Tender, Supple, Carotid Bruit Respiratory: Chest Non Tender, Lungs Clear, Normal Breath Sounds, No Accessory Muscle Use, No Respiratory Distress Cardiovascular: Regular Rate, Rhythm, No Edema, No Gallop, No JVD, No Murmur, Normal Peripheral Pulses Gastrointestinal: Normal Bowel Sounds, No Organomegaly, No Pulsatile Mass, Non Tender, Soft Back: Normal Inspection, No CVA Tenderness, No Vertebral Tenderness Extremity: Normal Capillary Refill, Normal Inspection, Normal Range of Motion, Non Tender, No Calf Tenderness, No Pedal Edema Neurologic/Psychiatric: Alert, Oriented x3, call center consultant II-XII Norm as Tested, Abnormal Gait, Depressed Affect, Facial Droop (right), Motor Weakness (right sided 1/5 upper and lower) Skin: Normal Color, Warm/Dry Lymphatic: No Adenopathy PM&R Medical Assessment & Plan REHAB/MEDICAL ASSESSMENT AND PLAN: REHAB IMPAIRMENT GROUP: CVA ETIOLOGIC DIAGNOSIS: CVA The comorbidities that impact the patients function and/or functional outcome by: right sided weakness, HTN OOC, New DM, fall risk REHAB PLAN: The patient is being admitted to our comprehensive inpatient rehabilitation facility and can tolerate the intensity of service consisting of at least: 180 minutes of therapy a day, 5 out of 7 days a week Rehab treatment will consist of: PT OT will focus on regaining function of right sided weakness with use of AD and ST will help dysphagia and dysarthria The patient/family has a good understanding of our discharge process and will benefit from an interdisciplinary inpatient rehabilitation program. The patient has potential to make improvement and is in need of at least two of the following multidisciplinary therapies including but not limited to physical, occupational, speech, and prosthetics and orthotics. Additionally the patient will need services from respiratory, nutritional services, wound care, psychology, etc. (Customize this to each patient). Given the patients complex condition and risk of further medical complications, rehabilitation services cannot be safely or effectively provided at a lower level of care such as a retirement facility. BARRIERS TO DISCHARGE: Right sided weakness ESTIMATED LOS: 14 days DISPOSITION: Home RELEVANT CHANGES SINCE PREADMISSION SCREENING: I have compared the patients medical and functional status at the time of the preadmission screening and there are: no changes PROGNOSIS: Fair REHABILITATION GOALS: 1. PT OT will focus on regaining function of right sided weakness with use of AD and ST will help dysphagia and dysarthria All the above goals were reviewed with the patient and he/she is in agreement. By signing this document, I acknowledge that I have personally performed a full physical examination on this patient within 24 hours of admission to this inpatient rehabilitation facility and have determined the patient to be able to tolerate the above course of treatment at an intensive level for a reasonable period of time. I will be completing a detailed individualized Plan of Care for this patient by day #4 of the patients stay based upon the Preadmission Screen, the Post-Admission Evaluation, and the therapy evaluations. Admission Dx/Comorbidities: (1) CVA (cerebral vascular accident) ICD Codes: I63.9 - Cerebral infarction, unspecified Assessment/Plan Assessment and Plan Assess & Plan/Chief Complaint Assessment: CVA subacute not a tPa candidate Right sided weakness Dysarthria Dysphagia HTN urgency New DM Plan: Accuchecks PT OT MRI and carotid noted Supportive care LUANNE MARIE DO May 16, 2022 15:20
[2022-05-16] MEDS: hydrALAZINE (APESOLINE) 20 MG/ML VIAL IV PRN (15:30)
[2022-05-16] MEDS ORDERED: ONDANSETRON 4 MG/2 ML (SDV) Z0FRAN IV PRN (15:30)
[2022-05-16] MEDS ORDERED: hydrALAZINE (APESOLINE) 20 MG/ML VIAL ONE (15:30)
[2022-05-16] MEDS ORDERED: cefTRIAXone 1 GM PRE-MIX 50 ML IV SCH (15:30)
[2022-05-16] MEDS ORDERED: CATHETER FLUSH 10 ML SYR IVP PRN (15:30)
[2022-05-16] MEDS ORDERED: LOSARTAN 50 MG (COZAAR) TAB PO NR (15:30)
[2022-05-16] MEDS ORDERED: ACETAMINOPHEN 325 MG TABLET PO PRN (15:30)
--- NOTE | 2022-05-16 15:58 | Physical Therapy Evaluation ---
PT Evaluation-General Medical Diagnosis Admission Date May 16, 2022 at 14:20 Medical Diagnosis: CVA Onset Date: May 16, 2022 Therapy Diagnosis Therapy Diagnosis: impaired mobility, strength, hemiparesis, neglect Referral Physician: Laura Sterling DO Reason for Referral: Evaluation/Treatment Medical History Pertinent Medical History: CVA, DM, HTN Reviewed History: Yes Social History Current Living Status: Spouse Entry Into Home: Stairs With Railing PT Steps Into Home: 6 Prior Prior Level of Function SCALE: Activities may be completed with or without assistive devices. 5-Yqdggusldp-uufkwmk completes the activity by him/herself with no assistance from a helper. 5-Set-up or Clean-up Assistance-helper sets up or cleans up; patient completes activity. [place] assists only prior to or following the activity. 4-Supervision or Touching Assistance-helper provides verbal cues and/or touching/steadying and/or contact guard assistance as patient completes activity. Assistance may be provided throughout the activity or intermittently. 3-Partial/Moderate Assistance-helper does LESS THAN HALF the effort. [place] lifts, holds or supports trunk or limbs, but provides less than half the effort. 2-Substantial/Maximal Assistance-helper does MORE THAN HALF the effort. [place] lifts or holds trunk or limbs and provides more than half the effort. 0-Dbrtrjalu-liuvfx does ALL the effort. Patient does none of the effort to compl ete the activity. Or, the assistance of 2 or more helpers is required for the patient to complete the activity. If activity was not attempted, code reason: 7-Patient Refused. 9-Not Applicable-not attempted and the patient did not perform the activity before the current illness, exacerbation or injury. 10-Not Attempted due to Environmental Limitations-(lack of equipment, weather restraints, etc.). 88-Not Attempted due to Medical Conditions or Safety Concerns. Bed Mobility: 6 Transfers (B,C,W/C): 6 Gait: 6 Stairs: 6 Indoor Mobility (Ambulation): Independent Stairs: Independent Prior Devices Use: Walker PT Evaluation-Current Subjective Patient in recliner pre tx, agrees to PT, has no complaints of pain. Will be co-treating with OT for part of tx due to poor patient mobility, strength, endurance, right hemiparesis, severe debility, coordinate UE and LE during activity, safety and reduce risk of falls. Pain Section J - Health Conditions 1. Rarely or not at all 2. Occasionally 3. Frequently 4. Almost constantly 8. Unable to answer Pain Effect on Sleep: 1 Pain Interference with Therapy: 1 Pain Interference w/Day-to-Day: 1 Pt/Family Goals to be independent at home Objective Patient Orientation: Person, Place, Situation ROM/Strength ROM Lower Extremities WNL Strength Lower Extremities LLE (hip flexion 3+/5, knee flexion 4+/5, knee extension 4+/5, dorsiflexion 4+/5), RLE (hip flexion 3-/5, knee flexion 3-/5, knee extension 3-/5, dorsiflexion 4/5) Neuromuscular (Tone, Coordination, Reflexes) Patient has intact peripheral vision bilaterally and intact tracking bilaterally. Patient does have right side neglect and facial droop. Sensory Vision: Functional Hearing: Functional Sensation Right Lower Extremit: Intact Sensation Left Lower Extremity: Intact Transfers Roll Left & Right (QC): 3 Sit to Lying (QC): 2 Lying to Sitting/Side of Bed(Q: 2 Sit to Stand (QC): 3 Chair/Kpp-cm-Ausem Xfer(QC): 3 Toilet Transfer (QC): 3 Car Transfer (QC): 88 Patient performs rolling with min assist, supine <-> sit max assist, sit <-> stand mod assist, transfers mod assist, patient is not safe to perform a car transfer at this time. Patient needs a lot of cues and careful positioning due to her neglect and she is also impulsive, making transfers difficult. Gait Does the Patient Walk?: Yes Mode of Locomotion: Walk Anticipated Mode of Locomotion: Walk Walk 10 feet (QC): 2 Walk 50 ft with 2 Turns(QC): 88 Walk 150 ft (QC): 88 Walking 10ft/uneven surface-QC: 88 Distance: 10' Gait Assistive Device: FWW Comments/Gait Description Patient ambulated 10' with a rolling walker with max assist, patient needs assist with weight shifting, leans to the right side, needs assist guiding walker, right foot drags, cues for right foot stepping, neglect very evident. Wheelchair Training Does the Pt Use a Wheelchair?: Yes Distance: 50' Wheel 50 ft with 2 turns (QC): 3 Wheel 150 ft (QC): 88 Type of Wheelchair: Manual Patient can propel a manual WC 50' with min assist, uses left arm and leg to propel. Stairs 1 Step (curb) (QC): 88 4 Steps (QC): 88 12 Steps (QC): 88 Balance Sitting Static: Poor Sitting Dynamic: Poor Standing Static: Poor Standing Dynamic: Poor Picking up an Object (QC): 88 Treatment Patient also performed dressing and bathing and ADL's, and stood in the parallel bars working on balance and weight shifting. PT performed bed mobility and transfers, ambulation, WC mobility, positioning and safety during bathing and dressing and ADL's, OT performed bathing, dressing, ADL's, UE positioning and safety during activity. Patient had to go have a MRI, therapy transferred patient to MRI table and when done transferred her back to and got her back to her room and into bed, more testing taking place after she gets into bed (carotid ultrasound) Assessment/Needs Patient in bed post tx with nurse call, handed off patient to telegraph repeater technician. Patient has impaired mobility, strength, endurance, balance. Patient is impulsive and has right neglect. Patient is a high fall risk. 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 Worker Goals Care Home Goals PT Poultry Dressing Worker Goals Time Frame: May 30, 2022 Roll Left to Right (QC): 4 Sit to Lying (QC): 4 Lying-Sitting on Side/Bed(QC): 4 Sit to Stand (QC): 4 (CGA) Chair/Tnl-av-Leanl Xfer(QC): 4 (CGA) Toilet/Commode Transfer (QC): 4 (CGA) Car Transfer (QC): 4 (CGA) Does the Patient Walk: Yes Walk 10 feet (QC): 4 (CGA) Walk 10ft-Uneven Surface(QC): 4 (CGA) Walk 50ft with 2 Turns (QC): 4 (CGA) Walk 150 ft (QC): 4 (CGA) Wheel 50 feet with 2 turns (QC: 4 (SBA) Wheel 150 feet: 4 (SBA) 1 Step (curb) (QC): 3 (Ward) 4 Steps (QC): 3 (Ward) 12 Steps (QC): 88 Picking up an Object (QC): 4 (CGA using knurling machine tender) PT Plan Problem List Problem List: Activity Tolerance, Functional Strength, Safety, Balance, Gait, Transfer, Bed Mobility, ROM Treatment/Plan Treatment Plan: Continue Plan of Care Treatment Plan: Bed Mobility, Education, Functional Activity Ha, Functional Strength, Group Therapy, Gait, Safety, Therapeutic Exercise, Transfers Treatment Duration: May 30, 2022 Frequency: At least 5 of 7 days/Wk (IRF) Estimated Hrs Per Day: 1.5 hours per day Patient and/or Family Agrees t: Yes Safety Risks/Education Patient Education: Gait Training, Transfer Techniques, Correct Positioning, W/C Management, Safety Issues Teaching Recipient: Patient Teaching Methods: Demonstration, Discussion Response to Teaching: Reinforcement Needed Discharge Recommendations Plan Patient will perform bed mobility and transfer training, balance and endurance training, functional strengthening, stair training, gait training, and education, to improve functional mobility and independence at home. Therapy Discharge Recommendati: Scheduled Assistance, Home & Family, Post Acute PT Time Time In: 1420 Time Out: 1623 DATE: May 16, 2022 Total Billed Treatment Time: 90 Total Billed Treatment 1 visit EVM 10' FA 80' PT eval from [id number], OT eval from [id number], co-treat from [id number], co- treat from [id number] LEXY YATES PT May 16, 2022 15:58
--- NOTE | 2022-05-16 16:03 | Occupational Therapy Eval ---
OT Evaluation-General/PLF Medical Diagnosis Admission Date May 16, 2022 at 14:20 Medical Diagnosis: CVA Onset Date: May 16, 2022 Therapy Diagnosis Therapy Diagnosis: decreased ADL status, R side weakness Referral Physician: Laura Sterling DO Referral Reason: Evaluation/Treatment Medical History Pertinent Medical History: CVA, DM, HTN Current History 05/15/22 ED due to R side weakness, facial droop, slurred speech, multiple falls. Social History Current Living Status: Spouse Entry Into Home: Stairs With Railing Steps Into Home: 6 ADL-Prior Level of Function SCALE: Activities may be completed with or without assistive devices. 5-Adpfuaustr-tqeubke completes the activity by him/herself with no assistance from a helper. 5-Set-up or Clean-up Assistance-helper sets up or cleans up; patient completes activity. [place] assists only prior to or following the activity. 4-Supervision or Touching Assistance-helper provides verbal cues and/or touching/steadying and/or contact guard assistance as patient completes activity. Assistance may be provided throughout the activity or intermittently. 3-Partial/Moderate Assistance-helper does LESS THAN HALF the effort. [place] lifts, holds or supports trunk or limbs, but provides less than half the effort. 2-Substantial/Maximal Assistance-helper does MORE THAN HALF the effort. [place] lifts or holds trunk or limbs and provides more than half the effort. 0-Odyltpgio-epmrki does ALL the effort. Patient does none of the effort to complete the activity. Or, the assistance of 2 or more helpers is required for the patient to complete the activity. If activity was not attempted, code reason: 7-Patient Refused. 9-Not Applicable-not attempted and the patient did not perform the activity before the current illness, exacerbation or injury. 10-Not Attempted due to Environmental Limitations-(lack of equipment, weather restraints, etc.). 88-Not Attempted due to Medical Conditions or Safety Concerns. ADL PLOF Comments Pt reports IND with ADLs and functional mobility using a walker or cane. She has a tub/shower, no SC. Self Care: Independent Functional Cognition: Independent OT Current Status Subjective Pt agreeable to OT Tx. Mental Status/Objective Patient Orientation: Person, Place, Time, Situation Current Glasses/Contacts: Yes Hearing Aids: No Dentures/Partials: No Hand Dominance: Right Upper Extremity ROM LUE WFL, Shoulder flexion to approx 120 degrees. RUE decreased. Pt has trace AROM in shoulder and elbow when asked. Slightly more movement noted in shoulder and elbow when pt is not attending to limb but still attempting to use it functionally. Pt able to flex/extend fingers Upper Extremity Coordination Decreased due to limited RUE movement. Upper Extremity Sensation WFL per pt report. Upper Extremity Strength LUE WFL, grossly 3+/5 RUE grossly 1/5 ADL-Treatment Eating (QC): 3 Oral Hygiene (QC): 3 Shower/Bathe Self (QC): 3 (Mod A overallPt required assistance washing b/l feet, b/l armpits, LUE, buttocks., Cues required to wash R side of body.) Upper Body Dressing (QC): 3 (Mod A ) Lower Body Dressing (QC): 2 (Max A ) On/Off Footwear (QC): 2 (Max A) Toileting Hygiene (QC): 1 (2 person assist for hygiene and safety.) Other Treatments [id number]: OT evaluation complete. OT/PT cotreat due to skill of 2 clinicians required which a clinical rehabilitation aide could not perform in order to coordinate UE/LEs, decrease fall risk, and due to pt's limitations in strength, activity tolerance, mobility, R side weakness, and safety awareness. OT focused on ADLs, UE placement, cues for sequencing and safety and PT focused on LE placement, gross overall movement, transfers and mobility. Pt completed sponge bath, dressing and ADLs in bathroom seated at sink, QC scores listed above. Pt taken to therapy gym, completing functional mobility using FWW, standing in parallel bars (focus on weight shifting and balance), and w/c mobility in hallway. RN informed therapy pt had to be taken to MRI. OT/PT assisted pt down stairs and transferred onto MRI table. [id number]: OT/PT cotreat due to skill of 2 clinicians required which a clinical rehabilitation aide could not perform in order to coordinate UE/LEs, decrease fall risk, and due to pt's limitations in strength, activity tolerance, mobility, R side weakness, and safety awareness. OT focused on ADLs, UE placement, cues for sequencing and safety and PT focused on LE placement, gross overall movement, transfers and mobility. Pt finished with MRI, transferred from MRI table to w/c, then taken back to her room. Pt transferred from w/c to EOB and supine and assisted pt to comfort. Post tx, US tech present to perform carotid ultrasound, all needs met, bed alarm activated and call light in reach. Min A rolling, max A supine to/from sit, mod A sit to/from stand, mod A transfers. Pt requires a lot of cues and careful positioning due to R neglect and impulsively. 50' w/c mobility min A. Education OT Patient Education: Correct positioning, Energy conservation, Exercise program, Modified ADL techniques, Progress toward Goal/Update tx plan, Purpose of tx/functional activities, Rehab process Teaching Recipient: Patient Teaching Methods: Discussion Response to Teaching: Verbalize Understanding BIMS CAM BIMS Expression of Ideas and Wants: Difficulty (some difficulty with speech) Understanding Verbal Content: Understands Brief Interview/Mental Status: Yes IRF [place] BIMS: IRF [place] BIMS Response (Comments) Value Repitition of Three Words Three 3 Recalls Socks No, Could Not Recall 0 Recalls Blue No, Could Not Recall 0 Recalls Bed No, Could Not Recall 0 Year Correct 3 Month Accurate Within 5 Days 2 Day Correct 1 Total [address] Staff Ass[address] Mental [address] No CAM Mental Status Change/Baseline: 0 Inattention: 0 Disorganized thinkin Altered level of consciousness: 0 OT Short Term Goals Short Term Goals Time Frame: May 30, 2022 Oral hygiene: 4 Upper body dressin Lower body dressin Putting on/taking off footwear: 4 OT Outcomes Specialist Goals Outcomes Specialist Goals Time Frame: Jun 15, 2022 Eating (QC): 5 Oral Hygiene (QC): 5 Toileting Hygiene (QC): 6 Shower/Bathe Self (QC): 4 Upper Body Dressing (QC): 5 Lower Body Dressing (QC): 5 On/Off Footwear (QC): 5 Additional Goals: 1-Demonstrate ADL Tasks, 2-Verbalize Understanding, 3- ImproveStrength/Ha 1=Demonstrate adherence to instructed precautions during ADL tasks. 2=Patient will verbalize/demonstrate understanding of assistive devices/modifications for ADL. 3=Patient will improve strength/tolerance for activity to enable patient to perform ADL's. OT Education/Plan Problem List/Assessment Assessment: Decreased Activ Tolerance, Decreased Safety Aware, Decreased UE Strength, Impaired Coordination, Impaired Funct Balance, Impaired I ADL's, Impaired Self-Care Skills, Restricted Funct UE ROM Discharge Recommendations Plan/Recommendations: Continue POC Treatment Plan/Plan of Care Patient would benefit from OT for education, treatment and training to promote independence in ADL's, mobility, safety and/or upper extremity function for ADL's. Plan of Care: ADL Retraining, Functional Mobility, Group Exercise/Act as Ind, UE Funct Exercise/Act, UE Neuromus Re-Ed/Coord, W/C Management Training Treatment Duration: Jun 15, 2022 Frequency: At least 5 of 7 days/Wk (IRF) Estimated Hrs Per Day: 1.5 hours per day Agreement: Yes Rehab Potential: Fair Time Start Time: 14:30 ([id number]) Stop Time: 16:23 ([id number]) DATE: May 16, 2022 Total Time Billed (hr/min): 90 Billed Treatment Time OT eval [id number] (10'), cotreat [id number] (65') 1, EVM (10'), ADL 2 (30'), FA 2 (25') [id number] cotreat (15') 1, FA (15') ROSA NEGRETE OT May 16, 2022 16:03
[2022-05-16] MEDS: inSUlin ASPART (NovoLOG) 1 UNIT/0.01 ML (CHARGE PER UNIT) SQ SCH ×2 (16:30→21:14)
--- NOTE | 2022-05-16 16:38 | Diagnostic Imaging Report ---
PROCEDURE: MR imaging of the brain without contrast. TECHNIQUE: Multiplanar, multisequence MR imaging of the brain was performed without contrast. INDICATION: Stroke. TPA given 11:00 p.m. last night. COMPARISON: CTA head and neck from 05/15/2022. FINDINGS: Restricted water diffusion in the deep white matter of the left frontal lobe and basal ganglia measuring approximately 2.6 x 1.0 cm. No intracranial hemorrhage. No mass effect. No hemosiderin deposition. Mild generalized parenchymal volume loss. Moderate nonspecific T2 hyperintensities in the supratentorial white matter, compatible with chronic small vessel ischemic change. Normal morphology including the major midline structures, sella, posterior fossa and cerebellopontine angle. Normal intracranial flow voids. No hydrocephalus or extra-axial fluid collections. Postoperative changes in the globes. Paranasal sinuses and mastoids are clear. Normal bone marrow signal. IMPRESSION: Egeom-hd-uacuevlc infarct in the left basal ganglia and deep white matter of the left frontal lobe measuring up to 2.6 cm. Dictated by: Dictated on workstation # [id number]
--- NOTE | 2022-05-16 17:07 | Diagnostic Imaging Report ---
PROCEDURE: US carotid duplex, bilateral. INDICATION: Acute infarct with right hemiparesis. History of diabetes and hypertension. Weakness, syncope. TECHNIQUE: Multiple real-time grayscale images were obtained over the carotid arteries in various projections bilaterally. Additional spectral analysis and color Doppler and Duplex images were also obtained. CORRELATION: None FINDINGS: Color images demonstrate mild atherosclerotic plaque at the carotid bulbs. Right carotid circulation: The right common carotid artery is normal in course and caliber. The right internal carotid artery is patent. No hemodynamically significant stenosis is present at this time. Right external carotid artery is patent. Left carotid circulation: The left common carotid artery is normal in course and caliber. The left internal carotid artery is patent. No hemodynamically significant stenosis is present at this time. Left external carotid artery is patent. Antegrade flow in the bilateral vertebral arteries. DOPPLER (peak systolic velocity M/S Right Left CCA 1.3 1.4 ICA Proximal 1.1 1.0 ICA Mid 0.8 1.0 ICA Distal 0.8 0.8 RATIO 0.9 0.7 ECA 1.4 1.3 VERT 0.7 0.5 IMPRESSION: 1. Mild atherosclerosis involving bilateral carotid bulbs.. 2. No hemodynamically significant stenosis of the internal carotid arteries at this time. Parameters based on the consensus panel Cantu-Scale and Doppler ultrasound criteria published December 2002, Radiology, Volume 229. Dictated by: Dictated on workstation # [id number]
[2022-05-16 20:24] VITALS: BP 145/78
[2022-05-16] MEDS: DOCUSATE SODIUM 100 MG (COLACE) CAP PO SCH (21:14)
[2022-05-16] MEDS: polyethylene glycoL POWDER 17 GM (MIRALAX) PACK PO SCH (21:14)
[2022-05-16] MEDS: SENNA W/DOCUSATE (SENOKOT S) TABLET PO SCH (21:15)
[2022-05-16 23:45] VITALS: BP 142/70
[2022-05-17] MEDS: cefTRIAXone 1 GM PRE-MIX 50 ML IV SCH (05:14)
[2022-05-17 06:21] LABS: BASOPHILS % (AUTO) 0 % (0-10); EOSINOPHILS # (AUTO) 0.2 10^3/uL (0.0-0.3); EOSINOPHILS % (AUTO) 1 % (0-10); HEMATOCRIT 42 % (35-52); HEMOGLOBIN 14.4 g/dL (11.5-16.0); LYMPHOCYTES # (AUTO) 2.8 10^3/uL (1.0-4.0); LYMPHOCYTES % (AUTO) 26 % (12-44); MEAN CORPUSCULAR HEMOGLOBIN 31 pg (25-34); MEAN CORPUSCULAR HGB CONC 34 g/dL (32-36); MEAN CORPUSCULAR VOLUME 91 fL (80-99); MEAN PLATELET VOLUME 9.4 fL (9.0-12.2); MONOCYTES # (AUTO) 0.6 10^3/uL (0.0-1.0); MONOCYTES % (AUTO) 6 % (0-12); NEUTROPHILS # (AUTO) 7.3 10^3/uL (1.8-7.8); NEUTROPHILS % (AUTO) 67 % (42-75); PLATELET COUNT 230 10^3/uL (130-400); WHITE BLOOD COUNT 10.9 10^3/uL (4.3-11.0)
[2022-05-17 06:39] LABS: ALBUMIN 3.2 GM/DL (3.2-4.5); BILIRUBIN,TOTAL 0.9 MG/DL (0.1-1.0); CALCIUM 9.3 MG/DL (8.5-10.1); CREATININE SERUM 0.84 MG/DL (0.60-1.30); POTASSIUM 3.5 MMOL/L (3.6-5.0); TOTAL PROTEIN 6.1 GM/DL (6.4-8.2)
--- NOTE | 2022-05-17 06:50 | PM&R Progress Note ---
Subjective HPI/CC On Admission Date Seen by Provider: May 17, 2022 Time Seen by Provider: 11:00 Subjective/Events-last exam 05/17/2022: Settling in well Resting after therapy currently Denies pain BP improved Added insulin for elevated sugars HGA1C 9.3 Tely ordered for eval of cryptogenic CVA Review of Systems General: Fatigue, Malaise Objective Exam Vital Signs Vital Signs Date Time Temp Pulse Resp B/P (MAP) Pulse Ox O2 Delivery O2 Flow Rate FiO2 05/17/22 13:07 100 05/17/22 09:00 96 Room Air 05/17/22 07:44 36.5 18 114/69 (84) Capillary Refill : General Appearance: No Apparent Distress, WD/WN, Chronically ill, Obese HEENT: PERRL/EOMI, Normal ENT Inspection, Pharynx Normal Neck: Full Range of Motion, Normal Inspection, Non Tender, Supple, Carotid Bruit Respiratory: Chest Non Tender, Lungs Clear, Normal Breath Sounds, No Accessory Muscle Use, No Respiratory Distress Cardiovascular: Regular Rate, Rhythm, No Edema, No Gallop, No JVD, No Murmur, Normal Peripheral Pulses Gastrointestinal: Normal Bowel Sounds, No Organomegaly, No Pulsatile Mass, Non Tender, Soft Back: Normal Inspection, No CVA Tenderness, No Vertebral Tenderness Extremity: Normal Capillary Refill, Normal Inspection, Normal Range of Motion, Non Tender, No Calf Tenderness, No Pedal Edema Neurologic/Psychiatric: Alert, Oriented x3, headmaster/mistress II-XII Norm as Tested, Abnormal Gait, Depressed Affect, Facial Droop (right), Motor Weakness (right sided 1/5 upper and lower) Skin: Normal Color, Warm/Dry Lymphatic: No Adenopathy Results/Procedures Lab Laboratory Tests 05/17/22 05:50 Patient resulted labs reviewed. FIM Transfers Therapy Code Descriptions/Definitions Functional Louise Measure: 0=Not Assessed/NA 4=Minimal Assistance 1=Total Assistance 5=Supervision or Setup 2=Maximal Assistance 6=Modified Louise 3=Moderate Assistance 7=Complete IndependenceSCALE: Activities may be completed with or without assistive devices. 6-Blloyycgsx-sabyqhv completes the activity by him/herself with no assistance from a helper. 5-Set-up or Clean-up Assistance-helper sets up or cleans up; patient completes activity. [place] assists only prior to or following the activity. 4-Supervision or Touching Assistance-helper provides verbal cues and/or touching/steadying and/or contact guard assistance as patient completes activity. Assistance may be provided throughout the activity or intermittently. 3-Partial/Moderate Assistance-helper does LESS THAN HALF the effort. Slater lifts, holds or supports trunk or limbs, but provides less than half the effort. 2-Substantial/Maximal Assistance-helper does MORE THAN HALF the effort. [place] lifts or holds trunk or limbs and provides more than half the effort. 5-Xqzgrizbe-ptsyxq does ALL the effort. Patient does none of the effort to complete the activity. Or, the assistance of 2 or more helpers is required for the patient to complete the activity. If activity was not attempted, code reason: 7-Patient Refused. 9-Not Applicable-not attempted and the patient did not perform the activity before the current illness, exacerbation or injury. 10-Not Attempted due to Environmental Limitations-(lack of equipment, weather restraints, etc.). 88-Not Attempted due to Medical Conditions or Safety Concerns. Roll Left to Right (QC): 3 Sit to Lying (QC): 2 Sit to Stand (QC): 3 Chair/Ovq-nq-Izqhd Xfer(QC): 3 Car Transfer (QC): 88 Gait Training Does the Patient Walk?: Yes Walk 10 feet (QC): 2 Walk 50 ft with 2 Turns(QC): 88 Walk 150 ft (QC): 88 Walking 10ft/uneven surface-QC: 88 Gait Assistive Device: FWW Wheelchair Training Does the Pt Use a Wheelchair?: Yes Distance: 50' Wheel 50 ft with 2 turns (QC): 3 Wheel 150 ft (QC): 88 Type of Wheelchair: Manual Stair Training 1 Step (curb) (QC): 88 4 Steps (QC): 88 12 Steps (QC): 88 Balance Picking up an Object (QC): 88 ADL-Treatment Eating (QC): 3 Oral Hygiene (QC): 3 Shower/Bathe Self (QC): 3 (Mod A overallPt required assistance washing b/l feet, b/l armpits, LUE, buttocks., Cues required to wash R side of body.) Upper Body Dressing (QC): 3 (Mod A ) Lower Body Dressing (QC): 2 (Max A ) On/Off Footwear (QC): 2 (Max A) Toileting Hygiene (QC): 1 (2 person assist for hygiene and safety.) Assessment/Plan Assessment and Plan Assess & Plan/Chief Complaint Assessment: CVA subacute not a tPa candidate Right sided weakness Dysarthria Dysphagia HTN urgency New DM HGA1C 9.5 Plan: Accuchecks PT OT MRI and carotid noted Supportive care 05/17/2022: DM education Tely Increase insulin and add Metformin (1) CVA (cerebral vascular accident) LUANNE MARIE DO May 17, 2022 06:49
--- NOTE | 2022-05-17 06:51 | Individualized Plan of Care ---
Individualized Plan of Care Rehab Nursing IPOC Order Admission Date May 16, 2022 at 14:20 Current Orders Orders Admission Arrival Bed Request (05/16/22 14:35) Admission Order(Inpt,Obs,Sdc) (05/16/22 15:14) Vital Signs: Per Unit Policy ( 08,16,00 (05/16/22 15:14) Adelfo Navarrete 09,21 (05/16/22 15:14) Sequential Compression Device (05/16/22 15:14) Tierce Filler-Inpt Rehab Con (05/16/22 15:14) Rehab Nursing Orders-Ipoc (05/16/22 15:14) Physical Therapy Rehab Orders (05/16/22 15:14) Occupational Therapy Rehab Ord (05/16/22 15:14) Speech Therapy Rehab Orders (05/16/22 15:14) Cbc With Automated Diff (05/17/22 06:00) Comprehensive Metabolic Panel (05/17/22 06:00) Precautions (Aru) (05/16/22 15:14) Weekly Weight WEEK (05/16/22 15:14) Rehab-Intensity Of Therapy (05/16/22 15:14) Initiate Admission Nursing Pro .admission (05/16/22 15:14) Alprazolam Tablet (Xanax Tablet) (05/16/22 15:15) Calcium Carbonate Chew Tablet (Antacid C (05/16/22 15:15) Diphenhydramine Tablet (Benadryl Tablet) (05/16/22 15:15) Docusate Sodium Capsule (Colace Capsule) (05/16/22 21:00) Docusate Sodium Capsule (Colace Capsule) (05/16/22 15:15) Bisacodyl Suppository (Dulcolax Supposit (05/16/22 15:15) Lactulose Oral Solution (Enulose Oral So (05/16/22 15:15) Na Phos/Na Biphos Enema (Fleet Enema Davion (05/16/22 15:15) Guaifenesin/Codeine Syrup (Robitussin Ac (05/16/22 15:15) Loperamide Tablet (Imodium Tablet) (05/16/22 15:15) Melatonin Tablet (Melatonin Tablet) (05/16/22 15:15) Polyethylene Glycol Powder Pkt (Miralax (05/16/22 21:00) Ondansetron Oral Dissolve Tab (Zofran (05/16/22 15:15) Senna S Tablet (Senokot S Tablet) (05/16/22 21:00) Acetaminophen Tablet/Caplet (Tylenol T (05/16/22 15:15) Initiate Admission Nursing Pro .admission (05/16/22 15:14) Code/Resuscitation (05/16/22 15:16) Accucheck Achs ACHS (05/16/22 15:16) Mm5: Minced And Moist (05/16/22 Dinner) Aspirin Tablet (Aspirin Tablet) (05/17/22 09:00) Atorvastatin Tablet (Lipitor Tablet) (05/16/22 21:00) Ondansetron Injection (Zofran Injectio (05/16/22 15:30) Received Contrast (Hold Metformin- Contr (05/16/22 00:30) Ceftriaxone 1 Gm Pre-Mix (Rocephin 1 Gm (05/16/22 15:30) Sodium Chloride Flush (Catheter Flush Sy (05/16/22 15:30) Acetaminophen Tablet/Caplet (Tylenol T (05/16/22 15:30) Amlodipine Tablet (Norvasc Tablet) (05/17/22 09:00) Hydralazine Injection (Apresoline Inject (05/16/22 15:30) Insulin Aspart (Novolog) (Novolog (Charg (05/16/22 16:00) Insulin Determir (Per Unit) (Levemir (Pe (05/17/22 09:00) Us Carotid [place] Complete [id number] (05/16/22 15:16) Mri Brain W/O Contrast (05/16/22 15:16) Losartan Tablet (Cozaar Tablet) (05/16/22 15:30) Losartan Tablet (Cozaar Tablet) (05/17/22 09:00) Ceftriaxone 1 Gm Pre-Mix (Rocephin 1 Gm (05/17/22 05:00) Hydralazine Injection (Apresoline Inject (05/16/22 15:30) Enoxaparin Injection (Lovenox Injection) (05/17/22 09:00) Potassium Chloride (Tablet) (Klor Con Ta (05/17/22 07:00) Patient Visit (05/16/22 ) Pt Eval Moderate Complexity (05/16/22 ) Functional Activities, Ea 15 (05/16/22 ) Telemetry (05/17/22 10:34) Telemetry Nursing Assessment ( (05/17/22 10:34) Thyroid Stimulating Hormone (05/17/22 10:35) Insulin Determir (Per Unit) (Levemir (Pe (05/17/22 21:00) Patient Visit (05/17/22 ) Functional Activities, Ea 15 (05/17/22 ) Accucheck Achs ACHS (05/17/22 11:58) Insulin Aspart (Novolog) (Novolog (Charg (05/17/22 16:00) Insulin Aspart (Novolog) (Novolog (Charg (05/17/22 12:00) Diabetes Education (05/19/22 08:00) Metformin Tablet (Glucophage Tablet) (05/18/22 07:00) Rehab Nursing Orders: Ongoing Assess. of Cognitive Status, Ongoing Assess. of Function Status, Bladder Management, Bladder Scan, Bladder Training, Bowel Management, Bowel Training, Disease Management & Educaiton, DVT Prophylaxis, Fall Prevention, Fluid/Electrolyte/Nutrition Mgmt, Infection Prevention, Medication Management & Education, Management of Risks & Complications, Management of Skin Intergrity, Nutrition Management, Pain Management, Patient/Family Support, Safety Management, Swallow Precautions Intensity of Therapy to be met Patient to be seen: Min.3h per day/5 of 7d PT IPOC Problem List: Activity Tolerance, Functional Strength, Safety, Balance, Gait, Transfer, Bed Mobility, ROM Treatment Plan: Continue Plan of Care Bed Mobility, Education, Functional Activity Ha, Functional Strength, Group Therapy, Gait, Safety, Therapeutic Exercise, Transfers Treatment Duration: May 30, 2022 Frequency: At least 5 of 7 days/Wk (IRF) Estimated Hrs Per Day: 1.5 hours per day OT IPOC Problems: Decreased Activ Tolerance, Decreased Safety Aware, Decreased UE Strength, Impaired Coordination, Impaired Funct Balance, Impaired I ADL's, Impaired Self-Care Skills, Restricted Funct UE ROM OT Treatment, Training and Edu: Yes Plan of Care: ADL Retraining, Functional Mobility, Group Exercise/Act as Ind, UE Funct Exercise/Act, UE Neuromus Re-Ed/Coord, W/C Management Training Treatment Duration: Jun 15, 2022 Frequency: At least 5 of 7 days/Wk (IRF) Estimated Hrs Per Day: 1.[address] IPOC Speech Therapy Treatment Plan: Continue Plan of Care Treatment Duration: May 16, 2022 Frequency: Modified Program (IRF) Estimated Hrs Per Day: Other Tierce Filler/Case Mgmt Tierce Filler/Case Managemen: Discharge Planning Dietitian/Insurance Claims Processor Dietitian/Insurance Claims Processor to monitor nutritional status and make changes and/or recommendations as needed and work with speech pathology on dietary upgrades as the occur. Physician IPOC Medical Issues being managed closely and that require the 24 hour availability of a physician: Recent catastrophic CVA with new diagnosis of HTN and DM requiring multiple meds and insulin will require close monitoring for extension of the CVA and management of labile glucose and BP Medical Issues: Bowel/Bladder Function, DVT Prophylaxis, Falls Precautions, Fluid/Electrolyte/Nutrition Balance, Infection Protection, Pain Management, Swallowing Precautions Brief Synthesis of Preadmission Screen, Post-Admission Evaluation, and Therapy Evaluations: PT OT will focus on regaining independence with use of AD in order to return to home with spouse and ST will focus on regaining normal swallowing and speech Medical Prognosis: Fair Anticipated Length of Stay: 14 days LUANNE MARIE DO May 17, 2022 06:51
[2022-05-17] MEDS: inSUlin ASPART (NovoLOG) 1 UNIT/0.01 ML (CHARGE PER UNIT) SQ SCH (06:52)
[2022-05-17 07:44] VITALS: BP 114/69
--- NOTE | 2022-05-17 08:43 | Physical Therapy Daily Note ---
PT Daily Note-Current Subjective Pt. with light on upon entering room but indicates she didnt need anything but points to her brkfst tray untouched to the left of her bed . Pt. confirms she would like to eat. Agrees to bed mobility and a few LE exs. No c/o pain or discomfort Pain Location: No Pain Reported Section J - Health Conditions 1. Rarely or not at all 2. Occasionally 3. Frequently 4. Almost constantly 8. Unable to answer Pain Effect on Sleep: 1 Pain Interference with Therapy: 1 Pain Interference w/Day-to-Day: 1 Mental Status Patient Orientation: Mumbles Attachments: SCD's, Rhodes Catheter Transfers SCALE: Activities may be completed with or without assistive devices. 2-Kgjzjlrymz-dgngmqw completes the activity by him/herself with no assistance from a helper. 5-Set-up or Clean-up Assistance-helper sets up or cleans up; patient completes activity. [place] assists only prior to or following the activity. 4-Supervision or Touching Assistance-helper provides verbal cues and/or touching/steadying and/or contact guard assistance as patient completes activity. Assistance may be provided throughout the activity or intermittently. 3-Partial/Moderate Assistance-helper does LESS THAN HALF the effort. [place] lifts, holds or supports trunk or limbs, but provides less than half the effort. 2-Substantial/Maximal Assistance-helper does MORE THAN HALF the effort. [place] lifts or holds trunk or limbs and provides more than half the effort. 3-Ncbkqjtlj-ybbugw does ALL the effort. Patient does none of the effort to complete the activity. Or, the assistance of 2 or more helpers is required for the patient to complete the activity. If activity was not attempted, code reason: 7-Patient Refused. 9-Not Applicable-not attempted and the patient did not perform the activity before the current illness, exacerbation or injury. 10-Not Attempted due to Environmental Limitations-(lack of equipment, weather restraints, etc.). 88-Not Attempted due to Medical Conditions or Safety Concerns. Roll Left & Right (QC): 3 Sit to Lying (QC): 3 rolling left to right mod assist , pt. with right ignoral , needs directed to right for all tasks, Exercises Supine Ex: Ankle pumps, Rolling, Heel Slides, Hip abd/add Supine Reps: 12 (assisted right and guided/ assisted left) Treatments bulk of Rx, was bed mob to prep in supine and upright position for meal/eating prep and supervision of. Pt. attempting to drink a small bowl of applesauce, items were opened and utensils were placed on left, pt. was introduced to what each food was as they are mechanically of different texture and hard to recognize. Pt. did then use L hand for spoon only for eggs, applesauce, pancake and sausage. Pt. not clearing her mouth , taking very large bites quickly was monitored and cued for safe bolus amounts and clearing mouth both sides for saf ety etc. Assessment Current Status: Fair Progress dependent for all mob PT Rodbuster Goals Skilled Nursing Goals PT Skilled Nursing Goals Time Frame: May 30, 2022 Roll Left & Right (QC): 4 Sit to Lying (QC): 4 Lying-Sitting on Side/Bed(QC): 4 Sit to Stand (QC): 4 (CGA) Chair/Mgo-dp-Weisa Xfer(QC): 4 (CGA) Toilet Transfer (QC): 4 (CGA) Car Transfer (QC): 4 (CGA) Does the Patient Walk: Yes Walk 10 feet (QC): 4 (CGA) Walk 50ft with 2 Turns (QC): 4 (CGA) Walk 150 ft (QC): 4 (CGA) Walking 10ft on Uneven Surface: 4 (CGA) 1 Step (curb) (QC): 3 (Ward) 4 Steps (QC): 3 (Ward) 12 Steps (QC): 88 Picking up an Object (QC): 4 (CGA using melt down furnace operator) Wheel 50 feet with 2 turns (QC: 4 (SBA) Wheel 150 feet: 4 (SBA) PT Plan Treatment/Plan Treatment Plan: Continue Plan of Care Treatment Plan: Bed Mobility, Education, Functional Activity Ha, Functional Strength, Group Therapy, Gait, Safety, Therapeutic Exercise, Transfers Treatment Duration: May 30, 2022 Frequency: At least 5 of 7 days/Wk (IRF) Estimated Hrs Per Day: 1.5 hours per day Patient and/or Family Agrees t: Yes Safety Risks/Education Patient Education: Transfer Techniques (bed mob), Correct Positioning, Safety Issues Teaching Recipient: Patient Response to Teaching: Reinforcement Needed Time Time In: 805 Time Out: 825 DATE: May 17, 2022 Total Billed Treatment Time: 20 Total Billed Treatment 1,FA20m ELEAZAR PROCTOR PARKING GARAGE MANAGER May 17, 2022 08:43
[2022-05-17] MEDS: SENNA W/DOCUSATE (SENOKOT S) TABLET PO SCH ×2 (09:41→20:02)
[2022-05-17] MEDS: ENOXAPARIN 40 MG/0.4 ML (LOVENOX) SYR SC SCH (09:41)
[2022-05-17] MEDS: LOSARTAN 50 MG (COZAAR) TAB PO SCH (09:41)
[2022-05-17] MEDS: DOCUSATE SODIUM 100 MG (COLACE) CAP PO SCH ×2 (09:41→20:02)
[2022-05-17] MEDS: ASPIRIN 325 MG (5 GR) TABLET PO SCH (09:41)
[2022-05-17] MEDS: amLODIPine 10 MG (NORVASC) TAB PO SCH (09:41)
[2022-05-17] MEDS: KCL 10 MEQ TAB (MICRO K) PO SCH (09:41)
[2022-05-17] MEDS: polyethylene glycoL POWDER 17 GM (MIRALAX) PACK PO SCH ×2 (09:42→20:02)
[2022-05-17] MEDS: inSUlin ASPART (NovoLOG) 1 UNIT/0.01 ML (CHARGE PER UNIT) SC SCH ×4 (12:59→20:16)
[2022-05-17 15:48] VITALS: BP 170/76
[2022-05-17] MEDS: hydrALAZINE (APESOLINE) 20 MG/ML VIAL IV PRN (20:03)
[2022-05-18] VITALS: BP 143/74
[2022-05-18] MEDS: cefTRIAXone 1 GM PRE-MIX 50 ML IV SCH (05:26)
[2022-05-18] MEDS: inSUlin ASPART (NovoLOG) 1 UNIT/0.01 ML (CHARGE PER UNIT) SC SCH ×7 (06:11→20:47)
[2022-05-18] MEDS: KCL 10 MEQ TAB (MICRO K) PO SCH (06:11)
[2022-05-18] MEDS: metFORMIN 500 MG (GLUCOPHAGE) TAB PO SCH (06:11)
[2022-05-18 07:28] VITALS: BP 152/76
[2022-05-18] MEDS: ENOXAPARIN 40 MG/0.4 ML (LOVENOX) SYR SC SCH (08:09)
[2022-05-18] MEDS: LOSARTAN 50 MG (COZAAR) TAB PO SCH (08:13)
[2022-05-18] MEDS: polyethylene glycoL POWDER 17 GM (MIRALAX) PACK PO SCH ×2 (08:13→20:46)
[2022-05-18] MEDS: ASPIRIN 325 MG (5 GR) TABLET PO SCH (08:13)
[2022-05-18] MEDS: SENNA W/DOCUSATE (SENOKOT S) TABLET PO SCH ×2 (08:13→20:47)
[2022-05-18] MEDS: amLODIPine 10 MG (NORVASC) TAB PO SCH (08:13)
[2022-05-18] MEDS: ACETAMINOPHEN 325 MG TABLET PO PRN (08:13)
[2022-05-18] MEDS: DOCUSATE SODIUM 100 MG (COLACE) CAP PO SCH ×2 (08:13→20:47)
--- NOTE | 2022-05-18 15:51 | PM&R Progress Note ---
Subjective HPI/CC On Admission Date Seen by Provider: May 18, 2022 Time Seen by Provider: 16:00 Subjective/Events-last exam 05/18/2022: No major events Will DC catheter tomorrow No pain reported No falls 05/17/2022: Settling in well Resting after therapy currently Denies pain BP improved Added insulin for elevated sugars HGA1C 9.3 Tely ordered for eval of cryptogenic CVA Review of Systems General: Fatigue, Malaise Objective Exam Vital Signs Vital Signs Date Time Temp Pulse Resp B/P (MAP) Pulse Ox O2 Delivery O2 Flow Rate FiO2 05/18/22 19:28 36.6 90 16 141/63 (89) 93 Room Air Capillary Refill : General Appearance: No Apparent Distress, WD/WN, Chronically ill, Obese HEENT: PERRL/EOMI, Normal ENT Inspection, Pharynx Normal Neck: Full Range of Motion, Normal Inspection, Non Tender, Supple, Carotid Bruit Respiratory: Chest Non Tender, Lungs Clear, Normal Breath Sounds, No Accessory Muscle Use, No Respiratory Distress Cardiovascular: Regular Rate, Rhythm, No Edema, No Gallop, No JVD, No Murmur, Normal Peripheral Pulses Gastrointestinal: Normal Bowel Sounds, No Organomegaly, No Pulsatile Mass, Non Tender, Soft Back: Normal Inspection, No CVA Tenderness, No Vertebral Tenderness Extremity: Normal Capillary Refill, Normal Inspection, Normal Range of Motion, Non Tender, No Calf Tenderness, No Pedal Edema Neurologic/Psychiatric: Alert, Oriented x3, 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 FIM Transfers Therapy Code Descriptions/Definitions Functional [place] Measure: 0=Not Assessed/NA 4=Minimal Assistance 1=Total Assistance 5=Supervision or Setup 2=Maximal Assistance 6=Modified [place] 3=Moderate Assistance 7=Complete IndependenceSCALE: Activities may be completed with or without assistive devices. 9-Ktelyznmuu-rtwewjs completes the activity by him/herself with no assistance from a helper. 5-Set-up or Clean-up Assistance-helper sets up or cleans up; patient completes a ctivity. [place] assists only prior to or following the activity. 4-Supervision or Touching Assistance-helper provides verbal cues and/or touching/steadying and/or contact guard assistance as patient completes activity. Assistance may be provided throughout the activity or intermittently. 3-Partial/Moderate Assistance-helper does LESS THAN HALF the effort. [place] lifts, holds or supports trunk or limbs, but provides less than half the effort. 2-Substantial/Maximal Assistance-helper does MORE THAN HALF the effort. [place] lifts or holds trunk or limbs and provides more than half the effort. 9-Xbgnjvflx-qnpnlk does ALL the effort. Patient does none of the effort to complete the activity. Or, the assistance of 2 or more helpers is required for the patient to complete the activity. If activity was not attempted, code reason: 7-Patient Refused. 9-Not Applicable-not attempted and the patient did not perform the activity before the current illness, exacerbation or injury. 10-Not Attempted due to Environmental Limitations-(lack of equipment, weather restraints, etc.). 88-Not Attempted due to Medical Conditions or Safety Concerns. Roll Left to Right (QC): 3 Sit to Lying (QC): 3 Sit to Stand (QC): 3 Chair/Pex-um-Jnymz Xfer(QC): 3 Car Transfer (QC): 88 Gait Training Does the Patient Walk?: Yes Walk 10 feet (QC): 2 Walk 50 ft with 2 Turns(QC): 88 Walk 150 ft (QC): 88 Walking 10ft/uneven surface-QC: 88 Gait Assistive Device: FWW Wheelchair Training Does the Pt Use a Wheelchair?: Yes Distance: 50' Wheel 50 ft with 2 turns (QC): 3 Wheel 150 ft (QC): 88 Type of Wheelchair: Manual Stair Training 1 Step (curb) (QC): 88 4 Steps (QC): 88 12 Steps (QC): 88 Balance Picking up an Object (QC): 88 ADL-Treatment Eating (QC): 3 Oral Hygiene (QC): 3 Shower/Bathe Self (QC): 3 (Mod A overallPt required assistance washing b/l feet, b/l armpits, LUE, buttocks., Cues required to wash R side of body.) Upper Body Dressing (QC): 3 (Mod A ) Lower Body Dressing (QC): 2 (Max A ) On/Off Footwear (QC): 2 (Max A) Toileting Hygiene (QC): 1 (2 person assist for hygiene and safety.) Assessment/Plan Assessment and Plan Assess & Plan/Chief Complaint Assessment: CVA subacute not a tPa candidate Right sided weakness Dysarthria Dysphagia HTN urgency New DM HGA1C 9.5 Plan: Accuchecks PT OT MRI and carotid noted Supportive care 05/17/2022: DM education Tely Increase insulin and add Metformin 05/18/2022: DC catheter tomorrow (1) CVA (cerebral vascular accident) LUANNE MARIE DO May 18, 2022 15:51
[2022-05-18 16:20] VITALS: BP 136/61
[2022-05-18 19:28] VITALS: BP 141/63
[2022-05-18 23:42] VITALS: BP 132/71
--- NOTE | 2022-05-19 04:58 | PM&R Progress Note ---
Subjective HPI/CC On Admission Date Seen by Provider: May 19, 2022 Time Seen by Provider: 08:30 Subjective/Events-last exam 05/19/2022: Flaccidity of right side is concerning NH placement could be required BP and BS stable Dependence 05/18/2022: No major events Will DC catheter tomorrow No pain reported No falls 05/17/2022: Settling in well Resting after therapy currently Denies pain BP improved Added insulin for elevated sugars HGA1C 9.3 Tely ordered for eval of cryptogenic CVA Review of Systems General: Fatigue, Malaise Neurological: Weakness, Incoordination Objective Exam Vital Signs Vital Signs Date Time Temp Pulse Resp B/P (MAP) Pulse Ox O2 Delivery O2 Flow Rate FiO2 05/20/22 01:00 92 05/19/22 23:05 36.4 16 143/84 (103) 96 Nasal Cannula 2.00 Capillary Refill : General Appearance: No Apparent Distress, WD/WN, Chronically ill, Obese HEENT: PERRL/EOMI, Normal ENT Inspection, Pharynx Normal Neck: Full Range of Motion, Normal Inspection, Non Tender, Supple, Carotid Bruit Respiratory: Chest Non Tender, Lungs Clear, Normal Breath Sounds, No Accessory Muscle Use, No Respiratory Distress Cardiovascular: Regular Rate, Rhythm, No Edema, No Gallop, No JVD, No Murmur, Normal Peripheral Pulses Gastrointestinal: Normal Bowel Sounds, No Organomegaly, No Pulsatile Mass, Non Tender, Soft Back: Normal Inspection, No CVA Tenderness, No Vertebral Tenderness Extremity: Normal Capillary Refill, Normal Inspection, Normal Range of Motion, Non Tender, No Calf Tenderness, No Pedal Edema Neurologic/Psychiatric: Alert, 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 FIM Transfers Therapy Code Descriptions/Definitions Functional [place] Measure: 0=Not Assessed/NA 4=Minimal Assistance 1=Total Assistance 5=Supervision or Setup 2=Maximal Assistance 6=Modified [place] 3=Moderate Assistance 7=Complete IndependenceSCALE: Activities may be completed with or without assistive devices. 1-Aolbzmxbus-zwuvlgo completes the activity by him/herself with no assistance from a helper. 5-Set-up or Clean-up Assistance-helper sets up or cleans up; patient completes activity. [place] assists only prior to or following the activity. 4-Supervision or Touching Assistance-helper provides verbal cues and/or touching/steadying and/or contact guard assistance as patient completes activity. Assistance may be provided throughout the activity or intermittently. 3-Partial/Moderate Assistance-helper does LESS THAN HALF the effort. [place] lifts, holds or supports trunk or limbs, but provides less than half the effort. 2-Substantial/Maximal Assistance-helper does MORE THAN HALF the effort. [place] lifts or holds trunk or limbs and provides more than half the effort. 4-Hbouokqea-uzfjio does ALL the effort. Patient does none of the effort to complete the activity. Or, the assistance of 2 or more helpers is required for the patient to complete the activity. If activity was not attempted, code reason: 7-Patient Refused. 9-Not Applicable-not attempted and the patient did not perform the activity b efore the current illness, exacerbation or injury. 10-Not Attempted due to Environmental Limitations-(lack of equipment, weather restraints, etc.). 88-Not Attempted due to Medical Conditions or Safety Concerns. Roll Left to Right (QC): 3 Sit to Lying (QC): 3 Sit to Stand (QC): 3 Chair/Neh-uc-Tbwqj Xfer(QC): 3 Car Transfer (QC): 88 Gait Training Does the Patient Walk?: Yes Walk 10 feet (QC): 2 Walk 50 ft with 2 Turns(QC): 88 Walk 150 ft (QC): 88 Walking 10ft/uneven surface-QC: 88 Gait Assistive Device: FWW Wheelchair Training Does the Pt Use a Wheelchair?: Yes Distance: 50' Wheel 50 ft with 2 turns (QC): 3 Wheel 150 ft (QC): 88 Type of Wheelchair: Manual Stair Training 1 Step (curb) (QC): 88 4 Steps (QC): 88 12 Steps (QC): 88 Balance Picking up an Object (QC): 88 ADL-Treatment Eating (QC): 3 Oral Hygiene (QC): 3 Shower/Bathe Self (QC): 3 (Mod A overallPt required assistance washing b/l feet, b/l armpits, LUE, buttocks., Cues required to wash R side of body.) Upper Body Dressing (QC): 3 (Mod A ) Lower Body Dressing (QC): 2 (Max A ) On/Off Footwear (QC): 2 (Max A) Toileting Hygiene (QC): 1 (2 person assist for hygiene and safety.) Assessment/Plan Assessment and Plan Assess & Plan/Chief Complaint Assessment: CVA subacute not a tPa candidate Right sided weakness now progressed to flaccidity Dysarthria Dysphagia HTN urgency New DM HGA1C 9.5 Plan: Accuchecks PT OT MRI and carotid noted Supportive care 05/17/2022: DM education Tely Increase insulin and add Metformin 05/18/2022: DC catheter tomorrow 05/19/2022: NH placement? (1) CVA (cerebral vascular accident) LUANNE MARIE DO May 19, 2022 04:58
[2022-05-19] MEDS: cefTRIAXone 1 GM PRE-MIX 50 ML IV SCH (05:21)
[2022-05-19] MEDS: inSUlin ASPART (NovoLOG) 1 UNIT/0.01 ML (CHARGE PER UNIT) SC SCH ×7 (06:19→21:14)
[2022-05-19] MEDS: KCL 10 MEQ TAB (MICRO K) PO SCH (06:34)
[2022-05-19] MEDS: metFORMIN 500 MG (GLUCOPHAGE) TAB PO SCH (06:34)
[2022-05-19 08:00] VITALS: BP 137/69
[2022-05-19] MEDS: ASPIRIN 325 MG (5 GR) TABLET PO SCH (08:29)
[2022-05-19] MEDS: LOSARTAN 50 MG (COZAAR) TAB PO SCH (08:30)
[2022-05-19] MEDS: ENOXAPARIN 40 MG/0.4 ML (LOVENOX) SYR SC SCH (08:30)
[2022-05-19] MEDS: amLODIPine 10 MG (NORVASC) TAB PO SCH (08:30)
[2022-05-19] MEDS: DOCUSATE SODIUM 100 MG (COLACE) CAP PO SCH ×2 (08:30→21:14)
[2022-05-19] MEDS: SENNA W/DOCUSATE (SENOKOT S) TABLET PO SCH ×2 (08:30→21:13)
[2022-05-19] MEDS: polyethylene glycoL POWDER 17 GM (MIRALAX) PACK PO SCH ×2 (08:32→19:56)
--- NOTE | 2022-05-19 12:08 | Physical Therapy Daily Note ---
PT Daily Note-Current Subjective Pt laying in recliner upon arrival. Pt cannot agree to tx due to pt being significantly expressive aphasic at this time & R side is remains very flaccid. Pain Section J - Health Conditions 1. Rarely or not at all 2. Occasionally 3. Frequently 4. Almost constantly 8. Unable to answer Pain Effect on Sleep: 1 Pain Interference with Therapy: 1 Pain Interference w/Day-to-Day: 1 Mental Status Patient Orientation: Person, Non-Verbal/Aphasic Transfers SCALE: Activities may be completed with or without assistive devices. 9-Plfbrrvtpi-togovjw completes the activity by him/herself with no assistance from a helper. 5-Set-up or Clean-up Assistance-helper sets up or cleans up; patient completes activity. [place] assists only prior to or following the activity. 4-Supervision or Touching Assistance-helper provides verbal cues and/or touching/steadying and/or contact guard assistance as patient completes activity. Assistance may be provided throughout the activity or intermittently. 3-Partial/Moderate Assistance-helper does LESS THAN HALF the effort. [place] lifts, holds or supports trunk or limbs, but provides less than half the effort. 2-Substantial/Maximal Assistance-helper does MORE THAN HALF the effort. [place] lifts or holds trunk or limbs and provides more than half the effort. 9-Ihbzznlbu-amfrqt does ALL the effort. Patient does none of the effort to complete the activity. Or, the assistance of 2 or more helpers is required for the patient to complete the activity. If activity was not attempted, code reason: 7-Patient Refused. 9-Not Applicable-not attempted and the patient did not perform the activity before the current illness, exacerbation or injury. 10-Not Attempted due to Environmental Limitations-(lack of equipment, weather restraints, etc.). 88-Not Attempted due to Medical Conditions or Safety Concerns. Exercises Supine Ex: Ankle pumps, Quad Set, Heel Slides, Short Arc Quads, Straight leg raise, Hip abd/add Supine Reps: 15 Treatments WASTEWATER SUPERVISOR assists pt w/Supine EX, AROM-AAROM for L side LE in some case due to fatigue & PROM for R side due to pt being flaccid. Pt resting at end of tx. All needs met, call light in pt's lap. Assessment Pt is dependent w/EX & TF. Pt continues to try to communicate but to no available due to significantly expressive aphasic. Nurse & WASTEWATER SUPERVISOR see demonstration of progression of CVA. Dr Sterling is advised. PT Halfway Goals [employer] Goals PT Halfway Goals Time Frame: May 30, 2022 Roll Left & Right (QC): 4 Sit to Lying (QC): 4 Lying-Sitting on Side/Bed(QC): 4 Sit to Stand (QC): 4 (CGA) Chair/Qgr-bz-Wmwai Xfer(QC): 4 (CGA) Toilet Transfer (QC): 4 (CGA) Car Transfer (QC): 4 (CGA) Does the Patient Walk: Yes Walk 10 feet (QC): 4 (CGA) Walk 50ft with 2 Turns (QC): 4 (CGA) Walk 150 ft (QC): 4 (CGA) Walking 10ft on Uneven Surface: 4 (CGA) 1 Step (curb) (QC): 3 (Ward) 4 Steps (QC): 3 (Ward) 12 Steps (QC): 88 Picking up an Object (QC): 4 (CGA using top ironer) Wheel 50 feet with 2 turns (QC: 4 (SBA) Wheel 150 feet: 4 (SBA) PT Plan Problem List Problem List: Activity Tolerance, Functional Strength Treatment/Plan Treatment Plan: Continue Plan of Care Treatment Plan: Bed Mobility, Education, Functional Activity Ha, Functional Strength, Group Therapy, Gait, Safety, Therapeutic Exercise, Transfers Treatment Duration: May 30, 2022 Frequency: At least 5 of 7 days/Wk (IRF) Estimated Hrs Per Day: 1.5 hours per day Patient and/or Family Agrees t: Yes Time Time In: 1100 Time Out: 1200 DATE: May 19, 2022 Total Billed Treatment Time: 60 Total Billed Treatment 1, FA x2 (30m) & EX x2 (30m) LENNY OSBORNE WASTEWATER SUPERVISOR May 19, 2022 12:08
--- NOTE | 2022-05-19 13:26 | Occupational Ther Daily Note ---
OT Current Status-Daily Note Subjective Pt alert, lying in bed. Pt agrees to therapy. Pt is aphasic and has difficulty with word finding and expressing wants and needs. Mental Status/Objective Patient Orientation: Person, Non-Verbal/Aphasic Attachments: IV ADL-Treatment Pt does agrees to shower. At eval, pt was mod A for transfers. Pt is now max A x2 or more with all transfers. Pt was transferred to shower chair for shower, max A x2. Max A for shower sitting 100% of the time. Pt could follow 1 step directions 50% of the time during shower. Pt incontinent of bowel in shower. Max A for upper body dressing. Dependent for lower body dressing and footwear. Dependent for toileting. Set up for oral care. After session, pt sitting in recliner with call light/phone in reach. Nrsg in room. Therapy Code Descriptions/Definitions Functional [place] Measure: 0=Not Assessed/NA 4=Minimal Assistance 1=Total Assistance 5=Supervision or Setup 2=Maximal Assistance 6=Modified [place] 3=Moderate Assistance 7=Complete IndependenceSCALE: Activities may be completed with or without assistive devices. 9-Yejrdbrsts-inecvmd completes the activity by him/herself with no assistance fr om a helper. 5-Set-up or Clean-up Assistance-helper sets up or cleans up; patient completes activity. [place] assists only prior to or following the activity. 4-Supervision or Touching Assistance-helper provides verbal cues and/or touching/steadying and/or contact guard assistance as patient completes activity. Assistance may be provided throughout the activity or intermittently. 3-Partial/Moderate Assistance-helper does LESS THAN HALF the effort. [place] lifts, holds or supports trunk or limbs, but provides less than half the effort. 2-Substantial/Maximal Assistance-helper does MORE THAN HALF the effort. [place] lifts or holds trunk or limbs and provides more than half the effort. 0-Dehywzemj-inbata does ALL the effort. Patient does none of the effort to complete the activity. Or, the assistance of 2 or more helpers is required for the patient to complete the activity. If activity was not attempted, code reason: 7-Patient Refused. 9-Not Applicable-not attempted and the patient did not perform the activity before the current illness, exacerbation or injury. 10-Not Attempted due to Environmental Limitations-(lack of equipment, weather restraints, etc.). 88-Not Attempted due to Medical Conditions or Safety Concerns. Oral Hygiene (QC): 5 Shower/Bathe Self (QC): 2 Upper Body Dressing (QC): 2 Lower Body Dressing (QC): 1 On/Off Footwear: 1 Toileting Hygiene (QC): 1 Toilet Transfer (QC): 1 OT Short Term Goals Short Term Goals Time Frame: May 30, 2022 Oral hygiene: 4 Upper body dressin Lower body dressin Putting on/taking off footwear: 4 OT Retirement Goals Pier Master Goals Time Frame: Jun 15, 2022 Acute change in mental status: 0 Inattention: 0 Disorganized thinkin Altered level of consciousness: 0 Eating (QC): 5 Oral Hygiene (QC): 5 Toileting Hygiene (QC): 6 Shower/Bathe Self (QC): 4 Upper Body Dressing (QC): 5 Lower Body Dressing (QC): 5 On/Off Footwear (QC): 5 Additional Goals: 1-Demonstrate ADL Tasks, 2-Verbalize Understanding, 3- ImproveStrength/Ha 1=Demonstrate adherence to instructed precautions during ADL tasks. 2=Patient will verbalize/demonstrate understanding of assistive devices/modifications for ADL. 3=Patient will improve strength/tolerance for activity to enable patient to perform ADL's. OT Education/Plan Problem List/Assessment Assessment: Decreased Activ Tolerance, Impaired Self-Care Skills Discharge Recommendations Plan/Recommendations: Continue POC Treatment Plan/Plan of Care Patient would benefit from OT for education, treatment and training to promote independence in ADL's, mobility, safety and/or upper extremity function for ADL's. Plan of Care: ADL Retraining, Functional Mobility, Group Exercise/Act as Ind, UE Funct Exercise/Act, UE Neuromus Re-Ed/Coord, W/C Management Training Treatment Duration: Jun 15, 2022 Frequency: At least 5 of 7 days/Wk (IRF) Estimated Hrs Per Day: 1.5 hours per day Agreement: Yes Rehab Potential: Fair Time Start Time: 09:30 Stop Time: 10:30 DATE: May 19, 2022 Total Time Billed (hr/min): 60 Billed Treatment Time 1 visit-ADL 4 (60 min) KRISTA KEE May 19, 2022 13:26
--- NOTE | 2022-05-19 13:34 | Occupational Ther Daily Note ---
OT Current Status-Daily Note Subjective Pt alert, lying in bed. Nrsg in room finishing up. Pt aphasic and difficulty with word finding and making needs and wants known. ADL-Treatment Therapy Code Descriptions/Definitions Functional [place] Measure: 0=Not Assessed/NA 4=Minimal Assistance 1=Total Assistance 5=Supervision or Setup 2=Maximal Assistance 6=Modified [place] 3=Moderate Assistance 7=Complete IndependenceSCALE: Activities may be completed with or without assistive devices. 3-Gatffegink-ocyqexw completes the activity by him/herself with no assistance from a helper. 5-Set-up or Clean-up Assistance-helper sets up or cleans up; patient completes activity. [place] assists only prior to or following the activity. 4-Supervision or Touching Assistance-helper provides verbal cues and/or touching/steadying and/or contact guard assistance as patient completes activity. Assistance may be provided throughout the activity or intermittently. 3-Partial/Moderate Assistance-helper does LESS THAN HALF the effort. [place] lifts, holds or supports trunk or limbs, but provides less than half the effort. 2-Substantial/Maximal Assistance-helper does MORE THAN HALF the effort. [place] lifts or holds trunk or limbs and provides more than half the effort. 5-Culkjmixy-lmmtgh does ALL the effort. Patient does none of the effort to complete the activity. Or, the assistance of 2 or more helpers is required for the patient to complete the activity. If activity was not attempted, code reason: 7-Patient Refused. 9-Not Applicable-not attempted and the patient did not perform the activity before the current illness, exacerbation or injury. 10-Not Attempted due to Environmental Limitations-(lack of equipment, weather restraints, etc.). 88-Not Attempted due to Medical Conditions or Safety Concerns. Other Treatment Pt was able to state "I feel broken." Therapeutic listening and difficulty with word finding and expressing wants and needs. Pt allowed PROM to R UE. At times, pt had involuntary muscle contractions with bicep though did not notice movement. Pt appearing depressed and is having difficulty with expressing this. After session, pt lying in bed with call light/phone in reach. All needs met in room. OT Short Term Goals Short Term Goals Time Frame: May 30, 2022 Oral hygiene: 4 Upper body dressin Lower body dressin Putting on/taking off footwear: 4 OT Mcfp Goals Mcfp Goals Time Frame: Jun 15, 2022 Acute change in mental status: 0 Inattention: 0 Disorganized thinkin Altered level of consciousness: 0 Eating (QC): 5 Oral Hygiene (QC): 5 Toileting Hygiene (QC): 6 Shower/Bathe Self (QC): 4 Upper Body Dressing (QC): 5 Lower Body Dressing (QC): 5 On/Off Footwear (QC): 5 Additional Goals: 1-Demonstrate ADL Tasks, 2-Verbalize Understanding, 3- ImproveStrength/Ha 1=Demonstrate adherence to instructed precautions during ADL tasks. 2=Patient will verbalize/demonstrate understanding of assistive devices/ modifications for ADL. 3=Patient will improve strength/tolerance for activity to enable patient to perform ADL's. OT Education/Plan Problem List/Assessment Assessment: Decreased Activ Tolerance, Decreased UE Strength, Impaired Bed Mobility, Impaired Cognition, Impaired Self-Care Skills, Restricted Funct UE ROM Discharge Recommendations Plan/Recommendations: Continue POC Treatment Plan/Plan of Care Patient would benefit from OT for education, treatment and training to promote independence in ADL's, mobility, safety and/or upper extremity function for ADL's. Plan of Care: ADL Retraining, Functional Mobility, Group Exercise/Act as Ind, UE Funct Exercise/Act, UE Neuromus Re-Ed/Coord, W/C Management Training Treatment Duration: Jun 15, 2022 Frequency: At least 5 of 7 days/Wk (IRF) Estimated Hrs Per Day: 1.5 hours per day Agreement: Yes Rehab Potential: Fair Time Start Time: 12:50 Stop Time: 13:20 DATE: May 19, 2022 Total Time Billed (hr/min): 30 Billed Treatment Time 1 visit-NM 2 (30 min) KRISTA KEE May 19, 2022 13:34
[2022-05-19] MEDS: ACETAMINOPHEN 325 MG TABLET PO PRN (13:36)
[2022-05-19 14:34] VITALS: BP 127/73
--- NOTE | 2022-05-19 16:28 | ST Cognitive Linguistic Eval ---
Speech Evaluation-General Medical Diagnosis CVA Onset Date: May 16, 2022 Therapy Diagnosis Therapy Diagnosis: Moderate to Severe Expressive Aphasia Referral Referring Physician: Dr. Laura Sterling Reason for Referral: Evaluation/Treatment Medical History Pertinent Medical History: CVA, DM, HTN Reviewed History: Yes Social History Current Living Status: Spouse Speech PLF-Current Status Prior Level of Function The patient denied prior challenges with speech, language, or cognition. Subjective The patient was seated upright in her bed, awake and alert, upon entrance to her room by the clinician. The patient greeted the clinician with eye contact and a wave. The patient was agreeable to participation in the speech and language a ssessment on this date. Language Eval: Auditory Comprehends Simple Yes/No Ques: Functional Indent/Objects Multiple [place]: Functional Follows 1-Step Commands: Moderate (Intermittently with direct modeling.) Follows General Conversations: Functional Language Eval: Verbal Language Completes Spontaneous Greeting: Functional Produces Auto, Serial Info: Moderate (The patient is able to count to 10 with direct modeling and initial phoneme cue.) Imitates Simple Words/Phrases: Functional Word Finding: Severe Requests Basic Needs: Severe States Basic Personal Info: Severe Expresses Complex Ideas: Severe Language Evaluation: Writing Writes to Simple Dictation: Severe Writes Personal Information: Severe Cognitive Patient Orientation The patient was oriented to place, situation, and self through simple yes and no questions. Objective Cognitive Domain Cognitive assessment will occur following an improvement to the patient's expressive language skills. Objective Oral Motor/Speech Production The patient demonstrated lower 2/3 right facial droop with decreased right labial retraction and protrusion. Anterior loss of secretions are noted to the right. Lingual protrusion to the right with decreased right lingual strength and bilateral range of motion. Natural dentition present. Laryngeal elevation present to palpation. The patient displays moderate dysarthria (consistent with flaccid-type) characterized by imprecise articulation, decreased rate speech, and nasal emissions. The patient is less than 50% intelligible in known contexts at this time. Impression The patient demonstrates moderate to severe expressive aphasia and moderate dysarthria. Skilled speech pathology is warranted to target improved communication to meet the patient's wants and needs throughout her hospitalization and following discharge to the least restrictive environment. Speech Short Term Goals Short Term Goals Short Term Goals 1. The patient will complete oral motor exercises with 80% accuracy, independently. 2. The patient will complete word-finding exercises with 50% accuracy with moderate clinician verbal cueing. Time Frame-STG: Two Weeks. Speech Phlebotomist Medical Lab Assistant Goals Detention Goals 1. The patient will improve cognitive linguistic skills for safe discharge to the least restrictive environment. Time Frame: Three Weeks. Speech-Plan Treatment Plan Speech Therapy Treatment Plan: Continue Plan of Care Treatment Duration: May 16, 2022 Frequency: Modified Program (IRF) Estimated Hrs Per Day: Other Rehab Potential: Guarded Pt/Family Agrees to Plan: Yes Safety Risks/Education Teaching Recipient: Patient Teaching Methods: Discussion Response to Teaching: Reinforcement Needed Education Topics Provided: Results, Recommendations, Plan of Care, Word-Finding Strategies Time Speech Therapy Time In: 14:50 Speech Therapy Time Out: 15:20 DATE: May 19, 2022 Total Billed Time: 30 Billed Treatment Time 1, ANDREI NOONAN ELIZABETH ST May 19, 2022 16:28
--- NOTE | 2022-05-19 16:28 | ST Dysphagia Evaluation ---
Speech Evaluation-General Medical Diagnosis CVA Onset Date: May 16, 2022 Therapy Diagnosis Therapy Diagnosis: Suspected Oropharyngeal Dysphagia Referral Referring Physician: Dr. Laura Sterling Reason for Referral: Evaluation/Treatment Medical History Pertinent Medical History: CVA, DM, HTN Reviewed History: Yes Social History Current Living Status: Spouse Speech PLF/Current-Dysphagia Prior Level of Function The patient denied challenges or concerns with her oropharyngeal swallowing function prior to her hospitalization. Per patient, she consumed a regular consistency diet with thin liquids at home. Currently, the patient is consuming a MM5 with thin liquids as recommended by a prior evaluating ST. Per patient's RN, the patient has consumed pills one at a time without difficulty. Subjective The patient was seated upright in bed, awake and alert, upon entrance to her room by the clinician. The patient greeted the clinician with a hand wave and was agreeable to participation in the clinical bedside swallowing evaluation. Per patient's RN, the patient does appear to display some difficulty with thin liquids characterized by a wet vocal quality following the swallow. Prior to P.O. intake, the patient displays a wet vocal quality and anterior loss of secretions (moderate, right side) which is most likely secondary to poor control of the patient's own secretions. The clinician suspects the patient may be aspirating her own secretions at this time. Cognitive Status Patient Orientation: Person, Place, Time, Situation The patient displays accurate orientation information when provided simple yes and no questions by the clinician. Oral Motor Skills Dentition: Natural Current Food Consistancy: Mechanical Soft (MM5), Thin Liquids Ability to Follow Directions: Fair Oral Expression Ability: Severe Impairment Observation: Excessive Secretions Oral (The clinician offered oral suction set- up, however, the patient politely refused.) Voice Voice Phonatory-Based Quality: Normal Voice Pitch: Normal Voice Loudness: Normal Face Facial Symmetry: Asymmetrical (Right facial droop.) Oral-Facial Assessment Oral-Facial Dentition: Normal Labial Seal Description: Droops Right, Weak Smile: Reduced ROM, Droops Right, Poor Coordination Puff Cheeks: Reduced Strength (Right.) Lingual Protrusion: Abnormal (Right protrusion.) Lingual ROM: Abnormal Lingual Strength: Abnormal (Right lingual weakness.) Volitional Dry Swallow: Yes Voluntary Cough: Yes Can Clear Throat Volitionally: Yes Productive Cough: Yes Productive Throat Clear: Yes Dysphagia Evaluation Consistencies Presented: Regular, Thin Liquid, [place] Thick Liquid, Pureed Oral Phase: Anterior Spillage, Right Pocketing, Reduced Oral Transit Pharyngeal Phase: Clears Throat, Delayed Swallow The patient demonstrated watery eyes, subtle throat clearing, and an increasingly wet vocal quality following trials of thin liquids. No s/s of suspected aspiration were displayed with mildly thick, puree, or solid consistencies tested. Right oral pocketing was present with puree and solids which was removed with a cued lingual sweep following the swallow. Dietary Recommendations: Mechanical Soft (MM5) Liquid Recommendations: [place] Consistancy (Mildly thick.) Recommendations: - MM5 with mildly thick liquids, as tolerated. - Fully upright and alert for P.O. intake. - Assist with feeding and meal set-up, as necessary. - Present food/liquid to the strong, left side. - Assess the right side for pocketing throughout P.O. intake. - No straws. - Monitor for s/s of suspected aspiration with P.O. intake. If demonstrated, please contact speech pathology. - Modified barium swallow scheduled for 0900 on 05/19/22. Dysphagia Evaluation Summary The patient demonstrated suspected oropharyngeal dysphagia characterized by decreased labial and lingual strength and range of motion, a suspected delayed onset of the pharyngeal swallow, and poor airway protection in the presence of bolus material. Speech Short Term Goals Short Term Goals Short Term Goals 1. The patient will display safe swallowing precautions with 80% accuracy, independently. Time Frame-STG: Five Days. Speech Brick Picker Goals Intermediate Goals 1. The patient will tolerate the least restrictive diet consistency without s/s of suspected aspiration. Time Frame: One Week. Speech-Plan Treatment Plan Speech Therapy Treatment Plan: Continue Plan of Care Treatment Duration: Jun 06, 2022 Frequency: Modified Program (IRF) Estimated Hrs Per Day: Other Rehab Potential: Fair Safety Risks/Education Teaching Recipient: Patient Teaching Methods: Demonstration, Discussion Response to Teaching: Verbalize Understanding, Return Demonstration, Reinforcement Needed Education Topics Provided: Results, Recommendations, Plan of Care, Safe Swallowing Precautions Time Speech Therapy Time In: 15:20 Speech Therapy Time Out: 15:48 DATE: May 19, 2022 Total Billed Time: 28 Billed Treatment Time 1, MARIAJOSE DAYYPEDRO ST May 19, 2022 16:28
[2022-05-19 21:02] VITALS: BP 160/82
[2022-05-19 23:05] VITALS: BP 143/84
--- NOTE | 2022-05-20 05:02 | PM&R Progress Note ---
Subjective HPI/CC On Admission Date Seen by Provider: May 20, 2022 Time Seen by Provider: 08:30 Subjective/Events-last exam 05/20/2022: Flaccidity is profound Modified swallow today Dependent Needs NHP 05/19/2022: Flaccidity of right side is concerning NH placement could be required BP and BS stable Dependence 05/18/2022: No major events Will DC catheter tomorrow No pain reported No falls 05/17/2022: Settling in well Resting after therapy currently Denies pain BP improved Added insulin for elevated sugars HGA1C 9.3 Tely ordered for eval of cryptogenic CVA Review of Systems General: Fatigue, Malaise Objective Exam Vital Signs Vital Signs Date Time Temp Pulse Resp B/P (MAP) Pulse Ox O2 Delivery O2 Flow Rate FiO2 05/20/22 23:14 36.3 91 18 146/78 (100) 95 Nasal Cannula 2.00 Capillary Refill : General Appearance: No Apparent Distress, WD/WN, Chronically ill, Obese HEENT: PERRL/EOMI, Normal ENT Inspection, Pharynx Normal Neck: Full Range of Motion, Normal Inspection, Non Tender, Supple, Carotid Bruit Respiratory: Chest Non Tender, Lungs Clear, Normal Breath Sounds, No Accessory Muscle Use, No Respiratory Distress Cardiovascular: Regular Rate, Rhythm, No Edema, No Gallop, No JVD, No Murmur, Normal Peripheral Pulses Gastrointestinal: Normal Bowel Sounds, No Organomegaly, No Pulsatile Mass, Non Tender, Soft Back: Normal Inspection, No CVA Tenderness, No Vertebral Tenderness Extremity: Normal Capillary Refill, Normal Inspection, Normal Range of Motion, Non Tender, No Calf Tenderness, No Pedal Edema Neurologic/Psychiatric: Alert, Oriented x3, marine fisheries technician II-XII Norm as Tested, Abnormal Gait, Depressed Affect, Facial Droop (right), Motor Weakness (right sided 1/5 upper and lower) Skin: Normal Color, Warm/Dry Lymphatic: No Adenopathy Results/Procedures Lab Patient resulted labs reviewed. FIM Transfers Therapy Code Descriptions/Definitions Functional [place] Measure: 0=Not Assessed/NA 4=Minimal Assistance 1=Total Assistance 5=Supervision or Setup 2=Maximal Assistance 6=Modified [place] 3=Moderate Assistance 7=Complete IndependenceSCALE: Activities may be completed with or without assistive devices. 1-Alnmgdndio-begjhnu completes the activity by him/herself with no assistance from a helper. 5-Set-up or Clean-up Assistance-helper sets up or cleans up; patient completes activity. [place] assists only prior to or following the activity. 4-Supervision or Touching Assistance-helper provides verbal cues and/or touching/steadying and/or contact guard assistance as patient completes activity. Assistance may be provided throughout the activity or intermittently. 3-Partial/Moderate Assistance-helper does LESS THAN HALF the effort. [place] lifts, holds or supports trunk or limbs, but provides less than half the effort. 2-Substantial/Maximal Assistance-helper does MORE THAN HALF the effort. [place] lifts or holds trunk or limbs and provides more than half the effort. 8-Rgelowrjz-ooyrex does ALL the effort. Patient does none of the effort to complete the activity. Or, the assistance of 2 or more helpers is required for the patient to complete the activity. If activity was not attempted, code reason: 7-Patient Refused. 9-Not Applicable-not attempted and the patient did not perform the activity before the current illness, exacerbation or injury. 10-Not Attempted due to Environmental Limitations-(lack of equipment, weather restraints, etc.). 88-Not Attempted due to Medical Conditions or Safety Concerns. Roll Left to Right (QC): 3 Sit to Lying (QC): 3 Sit to Stand (QC): 3 Chair/Upp-my-Qyxdl Xfer(QC): 3 Car Transfer (QC): 88 Gait Training Does the Patient Walk?: Yes Walk 10 feet (QC): 2 Walk 50 ft with 2 Turns(QC): 88 Walk 150 ft (QC): 88 Walking 10ft/uneven surface-QC: 88 Gait Assistive Device: FWW Wheelchair Training Does the Pt Use a Wheelchair?: Yes Distance: 50' Wheel 50 ft with 2 turns (QC): 3 Wheel 150 ft (QC): 88 Type of Wheelchair: Manual Stair Training 1 Step (curb) (QC): 88 4 Steps (QC): 88 12 Steps (QC): 88 Balance Picking up an Object (QC): 88 ADL-Treatment Eating (QC): 3 Oral Hygiene (QC): 5 Shower/Bathe Self (QC): 2 Upper Body Dressing (QC): 2 Lower Body Dressing (QC): 1 On/Off Footwear (QC): 1 Toileting Hygiene (QC): 1 Toilet Transfer (QC): 1 Assessment/Plan Assessment and Plan Assess & Plan/Chief Complaint Assessment: CVA subacute not a tPa candidate Right sided weakness now progressed to flaccidity Dysarthria Dysphagia HTN urgency New DM HGA1C 9.5 Plan: Accuchecks PT OT MRI and carotid noted Supportive care 05/17/2022: DM education Tely Increase insulin and add Metformin 05/18/2022: DC catheter tomorrow 05/19/2022: NH placement? 05/20/2022: NHP (1) CVA (cerebral vascular accident) LUANNE MARIE DO May 20, 2022 05:02
[2022-05-20] MEDS: cefTRIAXone 1 GM PRE-MIX 50 ML IV SCH (05:34)
[2022-05-20] MEDS: inSUlin ASPART (NovoLOG) 1 UNIT/0.01 ML (CHARGE PER UNIT) SC SCH ×7 (05:36→20:22)
[2022-05-20] MEDS: KCL 10 MEQ TAB (MICRO K) PO SCH (06:56)
[2022-05-20] MEDS: metFORMIN 500 MG (GLUCOPHAGE) TAB PO SCH (06:56)
[2022-05-20 07:44] VITALS: BP 124/63
--- NOTE | 2022-05-20 07:44 | Occupational Ther Daily Note ---
OT Current Status-Daily Note Subjective Pt alert, lying in bed. Pt aphasic and has difficulty with making wants/needs known. Mental Status/Objective Patient Orientation: Person, Non-Verbal/Aphasic, Situation Attachments: IV ADL-Treatment Pt was set up for meal and items placed in pt's field of vision. Pt able to use regular utensils to eat though would eat fast and require verbal cues to slow down and swallow before next bite. When pt finished eating, swiped R cheek to dislodge any food left. After session, pt lying in bed with call light/phone in reach. Safety measures in place. All needs met. Therapy Code Descriptions/Definitions Functional [place] Measure: 0=Not Assessed/NA 4=Minimal Assistance 1=Total Assistance 5=Supervision or Setup 2=Maximal Assistance 6=Modified [place] 3=Moderate Assistance 7=Complete IndependenceSCALE: Activities may be completed with or without assistive devices. 7-Mdtgopsikr-vojrxlw completes the activity by him/herself with no assistance from a helper. 5-Set-up or Clean-up Assistance-helper sets up or cleans up; patient completes activity. [place] assists only prior to or following the activity. 4-Supervision or Touching Assistance-helper provides verbal cues and/or touching/steadying and/or contact guard assistance as patient completes activity. Assistance may be provided throughout the activity or intermittently. 3-Partial/Moderate Assistance-helper does LESS THAN HALF the effort. [place] lifts, holds or supports trunk or limbs, but provides less than half the effort. 2-Substantial/Maximal Assistance-helper does MORE THAN HALF the effort. [place] lifts or holds trunk or limbs and provides more than half the effort. 3-Dggoufbuc-heixzz does ALL the effort. Patient does none of the effort to complete the activity. Or, the assistance of 2 or more helpers is required for the patient to complete the activity. If activity was not attempted, code reason: 7-Patient Refused. 9-Not Applicable-not attempted and the patient did not perform the activity before the current illness, exacerbation or injury. 10-Not Attempted due to Environmental Limitations-(lack of equipment, weather restraints, etc.). 88-Not Attempted due to Medical Conditions or Safety Concerns. Eating (QC): 4 OT Short Term Goals Short Term Goals Time Frame: May 30, 2022 Oral hygiene: 4 Upper body dressin Lower body dressin Putting on/taking off footwear: 4 OT Belt Loop Maker Goals Belt Loop Maker Goals Time Frame: Jun 15, 2022 Acute change in mental status: 0 Inattention: 0 Disorganized thinkin Altered level of consciousness: 0 Eating (QC): 5 Oral Hygiene (QC): 5 Toileting Hygiene (QC): 6 Shower/Bathe Self (QC): 4 Upper Body Dressing (QC): 5 Lower Body Dressing (QC): 5 On/Off Footwear (QC): 5 Additional Goals: 1-Demonstrate ADL Tasks, 2-Verbalize Understanding, 3- ImproveStrength/Ha 1=Demonstrate adherence to instructed precautions during ADL tasks. 2=Patient will verbalize/demonstrate understanding of assistive devices/modifications for ADL. 3=Patient will improve strength/tolerance for activity to enable patient to perform ADL's. OT Education/Plan Problem List/Assessment Assessment: Decreased Activ Tolerance, Decreased Safety Aware, Decreased UE Strength, Dependent Transfers, Impaired Self-Care Skills, Restricted Funct UE ROM Discharge Recommendations Plan/Recommendations: Continue POC Treatment Plan/Plan of Care Patient would benefit from OT for education, treatment and training to promote independence in ADL's, mobility, safety and/or upper extremity function for ADL's. Plan of Care: ADL Retraining, Functional Mobility, Group Exercise/Act as Ind, UE Funct Exercise/Act, UE Neuromus Re-Ed/Coord, W/C Management Training Treatment Duration: Jun 15, 2022 Frequency: At least 5 of 7 days/Wk (IRF) Estimated Hrs Per Day: 1.5 hours per day Agreement: Yes Rehab Potential: Fair Time Start Time: 07:30 Stop Time: 07:45 DATE: May 20, 2022 Total Time Billed (hr/min): 15 Billed Treatment Time 1 visit-ADL 1 (15 min) KRISTA KEE May 20, 2022 07:44
[2022-05-20] MEDS: LOSARTAN 50 MG (COZAAR) TAB PO SCH (08:50)
[2022-05-20] MEDS: SENNA W/DOCUSATE (SENOKOT S) TABLET PO SCH ×2 (08:50→22:16)
[2022-05-20] MEDS: ASPIRIN 325 MG (5 GR) TABLET PO SCH (08:50)
[2022-05-20] MEDS: amLODIPine 10 MG (NORVASC) TAB PO SCH (08:50)
[2022-05-20] MEDS: ENOXAPARIN 40 MG/0.4 ML (LOVENOX) SYR SC SCH (08:50)
[2022-05-20] MEDS: DOCUSATE SODIUM 100 MG (COLACE) CAP PO SCH ×2 (08:50→22:15)
[2022-05-20] MEDS: polyethylene glycoL POWDER 17 GM (MIRALAX) PACK PO SCH ×2 (09:52→20:21)
--- NOTE | 2022-05-20 10:28 | ST Mod Barium Swallow ---
Speech Evaluation-General Medical Diagnosis CVA Onset Date: May 16, 2022 Therapy Diagnosis Therapy Diagnosis: Moderate Oropharyngeal Dysphagia Precautions Precautions: Fall, Pressure Ulcer, Aspiration Precautions/Isolations: Aspiration, Fall Prevention, Standard Precautions, Pressure Ulcer Referral Referring Physician: Dr. Laura Sterling Reason for Referral: Evaluation/Treatment Medical History Pertinent Medical History: CVA, DM, HTN Reviewed History: Yes Social History Current Living Status: Spouse Speech Mod Barium Swallow Prior Level of Function Please refer to the clinical bedside swallowing assessment for information regarding the patient's prior level of function and medical information. Oral Motor Skills Lingual Protrusion: Abnormal Lingual Protrusion Abnormal: R Lingual ROM: Abnormal Lingual Strength: Abnormal Volitional Dry Swallow: Yes Voluntary Cough: Yes Can Clear Throat Volitionally: Yes Textures-Lateral View Lateral View Food Presentation: [place] Liquid via Spoon, [place] Liquid via Cup, Honey Liquid via Spoon, Honey Liquid via Cup Oral Phase Labial Closure: Moderate Impairment Bolus Formation Pooling L/R: Moderate Impairment Bolus Formation Placement: Moderate Impairment Mastication Rotary Chew: Mild Impairment (Mild to moderate.) A/P Lingual Propulsion: Moderate Impairment Lingual Movement: Moderate Impairment The patient demonstrated moderate oral impairments to the swallowing function. Anterior bolus loss was visualized from the right labial side. Poor bolus formation with spillage to the right buccal cavity was observed. Prolonged mastication with solid consistencies were present. Prolonged and poorly organized posterior oral transfer. Premature spillage of bolus material to the pyriform sinuses prior to pharyngeal swallow onset. Pharyngeal Phase Swallow Response: Moderate Impairment Base of Tongue: Moderate Impairment Epiglottic Movement: No Impairment (WFL) (Delayed.) Laryngeal Elevation: No Impairment (WFL) Vallecular Residue: Moderate Pharyngeal Wall Residue: Mild Piriform Sinus Residue: Moderate Laryngeal Penetration: Mild (Mildly thick and moderately thick.) Aspiration Observations: Mild (Moderately Thick.) The patient demonstrated moderate pharyngeal impairments to the swallowing function. Onset of the pharyngeal swallow occurred as bolus material reached the laryngeal surface of the epiglottis. Intact laryngeal elevation and excursion were present with complete, yet delayed, epiglottic inversion. Laryngeal penetration was visualized with mildly thick and moderately thick bolus material during the swallow which appeared secondary to the premature spillage of bolus material and the delayed swallow onset. Silent aspiration (mild) occurred with moderately-thick bolus material during the second swallow, as a piece meal swallow was appreciated intermittently. Moderately reduced base of tongue retraction and pharyngeal contractions were present resulting in moderate vallecular and pyriform sinus residue following the swallow. Complete clearance of bolus material throughout the cricopharyngeal region were observed. A chin tuck and a reduction in bolus size were efficient at reducing laryngeal penetration with mildly thick liquids. Summary/Impressions The patient demonstrated moderate oropharyngeal dysphagia characterized by decreased labial and lingual range of motion, coordination, and strength, a delayed onset of the pharyngeal swallow, poor airway protection and sensation in the presence of bolus material, reduced base of tongue retraction, and decreased pharyngeal contractions. Laryngeal penetration was present with mildly thick and moderately thick bolus consistencies during the swallow. Silent aspiration was present with moderately thick liquids at the close of the study. Recommendations: - MM5 with mildly thick liquids, as tolerated. - Fully alert and upright for P.O. intake. - Chin tuck utilized for intake of mildly thick liquids. - Sip size no larger than one teaspoon. - No straws. - Present food/liquid to the strong, left side. - Assess for right pocketing throughout P.O. intake. - Cease P.O. intake during periods of fatigue. - Monitor for clinical and medical s/s of suspected aspiration with P.O. intake. If demonstrated, please contact speech pathology. - Speech pathology to continue ongoing assessments of the patient's oropharyngeal swallowing function. ST to initiate skilled dysphagia treatment. The patient fatigued quickly throughout the limited P.O. trials, increasing her risks of aspiration with any P.O. intake. If the above safe swallowing precautions are not followed, the patient's risk of aspiration increase greatly. The results and recommendations will be shared with the patient and the patient's RN by this clinician. Speech Short Term Goals Short Term Goals Short Term Goals 1. The patient will complete oral motor exercises with 80% accuracy, independently. 2. The patient will complete word-finding exercises with 50% accuracy with moderate clinician verbal cueing. Time Frame-STG: Two Weeks. Speech Digital Account Manager Goals Digital Account Manager Goals 1. The patient will improve cognitive linguistic skills for safe discharge to t he least restrictive environment. Time Frame: Three Weeks. Speech-Plan Treatment Plan Speech Therapy Treatment Plan: Continue Plan of Care Treatment Duration: Jun 06, 2022 Frequency: Modified Program (IRF) Estimated Hrs Per Day: Other Rehab Potential: Guarded Pt/Family Agrees to Plan: Yes Safety Risks/Education Teaching Recipient: Patient Teaching Methods: Demonstration, Handout, Discussion, Audiovisual Response to Teaching: Verbalize Understanding, Reinforcement Needed Education Topics Provided: Results, Recommendations, Plan of Care, Safe Swallowing Precautions, Aspiration Risks, S/s of Suspected Aspiration Time Speech Therapy Time In: 09:00 Speech Therapy Time Out: 09:35 DATE: May 20, 2022 Total Billed Time: 45 Billed Treatment Time 1, MOD, DYST *1130 to 1145 (15 minutes) PEDRO BUENROSTRO May 20, 2022 10:28
--- NOTE | 2022-05-20 10:53 | Physical Therapy Daily Note ---
PT Daily Note-Current Subjective Patient in bed pre tx, agrees to PT, has no complaints of pain. Will be co- treating with OT due to poor patient mobility, strength, endurance, severe debility, coordinate UE and LE during activity, safety and reduce risk of falls. Pain Section J - Health Conditions 1. Rarely or not at all 2. Occasionally 3. Frequently 4. Almost constantly 8. Unable to answer Pain Effect on Sleep: 1 Pain Interference with Therapy: 1 Pain Interference w/Day-to-Day: 1 Appearance Patient in bed post tx with nurse call, phone, tray, all needs met, bed alarm on. Mental Status Patient Orientation: Person, Unable to Assess, Non-Verbal/Aphasic Attachments: Oxygen Transfers SCALE: Activities may be completed with or without assistive devices. 7-Fgawejvrij-tjfrunw completes the activity by him/herself with no assistance from a helper. 5-Set-up or Clean-up Assistance-helper sets up or cleans up; patient completes activity. [place] assists only prior to or following the activity. 4-Supervision or Touching Assistance-helper provides verbal cues and/or touching/steadying and/or contact guard assistance as patient completes activity. Assistance may be provided throughout the activity or intermittently. 3-Partial/Moderate Assistance-helper does LESS THAN HALF the effort. [place] lifts, holds or supports trunk or limbs, but provides less than half the effort. 2-Substantial/Maximal Assistance-helper does MORE THAN HALF the effort. [place] lifts or holds trunk or limbs and provides more than half the effort. 4-Hidwxliif-bxknrl does ALL the effort. Patient does none of the effort to complete the activity. Or, the assistance of 2 or more helpers is required for the patient to complete the activity. If activity was not attempted, code reason: 7-Patient Refused. 9-Not Applicable-not attempted and the patient did not perform the activity before the current illness, exacerbation or injury. 10-Not Attempted due to Environmental Limitations-(lack of equipment, weather restraints, etc.). 88-Not Attempted due to Medical Conditions or Safety Concerns. Roll Left & Right (QC): 2 Sit to Lying (QC): 2 Lying to Sitting/Side of Bed(Q: 2 Sit to Stand (QC): 1 Chair/Jjm-xx-Kmoyi Xfer(QC): 1 Toilet Transfer (QC): 1 Patient sits to the side of the bed with max assist, dependent stand pivot transfer to , propels WC to therapy gym and stands in the parallel bars x3 with assist of 2 for about 15 sec each time. Patient indicated that she had to use the restroom, got her back to her room, dependent transfer to commode, when done dependent stand while patient is cleaned and then dependent transfer back to . Patient practices WC mobility and then patient is taken back to her room, dependent stand pivot transfer back to bed and max assist to lay down. Wheelchair Training Does the Pt Use a Wheelchair?: Yes Wheel 50 ft with 2 turns (QC): 3 Wheel 150 ft (QC): 3 Type of Wheelchair: Manual Mod assist, patient helps propel using left arm, attempts to use left foot but she cannot coordinate it, needs assist to push and steer Treatments PT performed bed mobility and transfers, WC mobility, standing, OT performed toileting, cleaning, assist with transfers and standing, UE positioning and safety during activity Assessment Current Status: Poor Progress patient is declining in functional mobility and strength PT General Purchasing Agent Goals General Purchasing Agent Goals PT General Purchasing Agent Goals Time Frame: May 30, 2022 Roll Left & Right (QC): 4 Sit to Lying (QC): 4 Lying-Sitting on Side/Bed(QC): 4 Sit to Stand (QC): 4 (CGA) Chair/Ghv-lx-Oigel Xfer(QC): 4 (CGA) Toilet Transfer (QC): 4 (CGA) Car Transfer (QC): 4 (CGA) Does the Patient Walk: Yes Walk 10 feet (QC): 4 (CGA) Walk 50ft with 2 Turns (QC): 4 (CGA) Walk 150 ft (QC): 4 (CGA) Walking 10ft on Uneven Surface: 4 (CGA) 1 Step (curb) (QC): 3 (Ward) 4 Steps (QC): 3 (Ward) 12 Steps (QC): 88 Picking up an Object (QC): 4 (CGA using project associate) Wheel 50 feet with 2 turns (QC: 4 (SBA) Wheel 150 feet: 4 (SBA) PT Plan Problem List Problem List: Activity Tolerance, Functional Strength, Safety, Balance, Gait, Transfer, Bed Mobility, ROM Treatment/Plan Treatment Plan: Continue Plan of Care Treatment Plan: Bed Mobility, Education, Functional Activity Ha, Functional Strength, Group Therapy, Gait, Safety, Therapeutic Exercise, Transfers Treatment Duration: May 30, 2022 Frequency: At least 5 of 7 days/Wk (IRF) Estimated Hrs Per Day: 1.5 hours per day Patient and/or Family Agrees t: Yes Safety Risks/Education Patient Education: Transfer Techniques, Correct Positioning, W/C Management, Safety Issues Teaching Recipient: Patient Teaching Methods: Demonstration, Discussion Response to Teaching: Reinforcement Needed Time Time In: 1000 Time Out: 1100 DATE: May 20, 2022 Total Billed Treatment Time: 60 Total Billed Treatment 1 visit FA 60' LEXY YATES PT May 20, 2022 10:53
--- NOTE | 2022-05-20 10:57 | Occupational Ther Daily Note ---
OT Current Status-Daily Note Subjective Pt alert, lying in bed. present in room. Pt agrees to therapy. Pt aphasic and has difficulty with word finding and expressing wants and needs. Co-treat with PT ([id number]), skills of 2 clinicians required to decrease fall risk, work on progressing from dependent transfer, working on standing in //bars and R UE/LE positioning during mobility. PT focusing on transfers, standing and LE placement while OT focusing on ADLs, functional mobility and UE placement. Mental Status/Objective Patient Orientation: Person, Non-Verbal/Aphasic, Situation ADL-Treatment Pt dependent for bed mobility, standing, transfers and ADLs. Pt requires 2-3 person transfers and standing for safety. See PT notes for progress on standing and w/c mobility. Pt has tendency to grab with L hand when transferring and pushing away from target destination. Pt's sitting balance has improved from yesterday, less leaning toward R side. After session, pt lying in bed with call light/phone in reach. present in room. Safety measures in place. Therapy Code Descriptions/Definitions Functional [place] Measure: 0=Not Assessed/NA 4=Minimal Assistance 1=Total Assistance 5=Supervision or Setup 2=Maximal Assistance 6=Modified [place] 3=Moderate Assistance 7=Complete IndependenceSCALE: Activities may be completed with or without assistive devices. 2-Vrdhudkkzl-ocqffyc completes the activity by him/herself with no assistance from a helper. 5-Set-up or Clean-up Assistance-helper sets up or cleans up; patient completes activity. [place] assists only prior to or following the activity. 4-Supervision or Touching Assistance-helper provides verbal cues and/or touching/steadying and/or contact guard assistance as patient completes activity. Assistance may be provided throughout the activity or intermittently. 3-Partial/Moderate Assistance-helper does LESS THAN HALF the effort. [place] lifts, holds or supports trunk or limbs, but provides less than half the effort. 2-Substantial/Maximal Assistance-helper does MORE THAN HALF the effort. [place] lifts or holds trunk or limbs and provides more than half the effort. 6-Qnrzufhql-xsnuoh does ALL the effort. Patient does none of the effort to complete the activity. Or, the assistance of 2 or more helpers is required for the patient to complete the activity. If activity was not attempted, code reason: 7-Patient Refused. 9-Not Applicable-not attempted and the patient did not perform the activity before the current illness, exacerbation or injury. 10-Not Attempted due to Environmental Limitations-(lack of equipment, weather restraints, etc.). 88-Not Attempted due to Medical Conditions or Safety Concerns. Toileting Hygiene (QC): 1 Toilet Transfer (QC): 1 OT Short Term Goals Short Term Goals Time Frame: May 30, 2022 Oral hygiene: 4 Upper body dressin Lower body dressin Putting on/taking off footwear: 4 OT Fdc Goals Principal Embedded Software Engineer Goals Time Frame: Jun 15, 2022 Acute change in mental status: 0 Inattention: 0 Disorganized thinkin Altered level of consciousness: 0 Eating (QC): 5 Oral Hygiene (QC): 5 Toileting Hygiene (QC): 6 Shower/Bathe Self (QC): 4 Upper Body Dressing (QC): 5 Lower Body Dressing (QC): 5 On/Off Footwear (QC): 5 Additional Goals: 1-Demonstrate ADL Tasks, 2-Verbalize Understanding, 3- ImproveStrength/Ha 1=Demonstrate adherence to instructed precautions during ADL tasks. 2=Patient will verbalize/demonstrate understanding of assistive devices/modifications for ADL. 3=Patient will improve strength/tolerance for activity to enable patient to perform ADL's. OT Education/Plan Problem List/Assessment Assessment: Decreased Activ Tolerance, Decreased Safety Aware, Decreased UE Strength, Dependent Transfers, Impaired Bed Mobility, Impaired Cognition, Impaired Coordination, Impaired Funct Balance, Impaired Self-Care Skills, Restr icted Funct UE ROM, Visual-Perceptual Deficit Discharge Recommendations Plan/Recommendations: Continue POC Treatment Plan/Plan of Care Patient would benefit from OT for education, treatment and training to promote independence in ADL's, mobility, safety and/or upper extremity function for ADL's. Plan of Care: ADL Retraining, Functional Mobility, Group Exercise/Act as Ind, UE Funct Exercise/Act, UE Neuromus Re-Ed/Coord, W/C Management Training Treatment Duration: Jun 15, 2022 Frequency: At least 5 of 7 days/Wk (IRF) Estimated Hrs Per Day: 1.5 hours per day Agreement: Yes Rehab Potential: Guarded Time Start Time: 10:00 Stop Time: 11:00 DATE: May 20, 2022 Total Time Billed (hr/min): 60 Billed Treatment Time 1 visit-ADL 2 (30 min) FA 2 (30 min) co-treat with PT 60 min KRISTA KEE May 20, 2022 10:57
--- NOTE | 2022-05-20 12:33 | Diagnostic Imaging Report ---
Modified barium swallow at 0929 hours. Indication: Dysphagia This study was performed in the presence of the speech pathologist, Zabrina Vu. There are no prior studies available for comparison. The patient was given barium in different substances to swallow. This included nectar and honey consistency. The patient did exhibit penetration with both the nectar and honey consistency as well as a small amount of aspiration with honey consistency. There was no cough elicited when the patient aspirated however. The patient was also given barium and applesauce and a cracker. She was able to swallow these materials without difficulty although there was some delay in clearing of the contrast. Impression: The swallowing mechanism is compromised as there was penetration with the nectar and honey consistency barium and aspiration with the honey consistency barium. There is no cough elicited with the aspiration. Dictated by: Dictated on workstation # [id number]
[2022-05-20 15:40] VITALS: BP 160/81
[2022-05-20] MEDS: MELATONIN 3 MG TABLET PO PRN (22:01)
[2022-05-20 23:14] VITALS: BP 146/78
[2022-05-21] MEDS: inSUlin ASPART (NovoLOG) 1 UNIT/0.01 ML (CHARGE PER UNIT) SC SCH ×6 (05:51→20:23)
[2022-05-21] MEDS: ACETAMINOPHEN 325 MG TABLET PO PRN (05:51)
[2022-05-21] MEDS: KCL 10 MEQ TAB (MICRO K) PO SCH (05:51)
[2022-05-21] MEDS: metFORMIN 500 MG (GLUCOPHAGE) TAB PO SCH (05:51)
--- NOTE | 2022-05-21 07:28 | PM&R Progress Note ---
Subjective HPI/CC On Admission Date Seen by Provider: May 21, 2022 Time Seen by Provider: 11:00 Subjective/Events-last exam 05/21/2022: No major issues Likely needs NHP Very flaccid since extension of the CVA No falls Change diet so aspiration less apt 05/20/2022: Flaccidity is profound Modified swallow today Dependent Needs NHP 05/19/2022: Flaccidity of right side is concerning NH placement could be required BP and BS stable Dependence 05/18/2022: No major events Will DC catheter tomorrow No pain reported No falls 05/17/2022: Settling in well Resting after therapy currently Denies pain BP improved Added insulin for elevated sugars HGA1C 9.3 Tely ordered for eval of cryptogenic CVA Review of Systems General: Fatigue, Malaise HEENT: Dysphasia Neurological: Weakness, Incoordination Objective Exam Vital Signs Vital Signs Date Time Temp Pulse Resp B/P (MAP) Pulse Ox O2 Delivery O2 Flow Rate FiO2 05/21/22 23:49 36.1 88 20 155/71 (99) 90 Room Air 05/21/22 09:58 Capillary Refill : General Appearance: No Apparent Distress, WD/WN, Chronically ill, Obese HEENT: PERRL/EOMI, Normal ENT Inspection, Pharynx Normal Neck: Full Range of Motion, Normal Inspection, Non Tender, Supple, Carotid Bruit Respiratory: Chest Non Tender, Lungs Clear, Normal Breath Sounds, No Accessory Muscle Use, No Respiratory Distress Cardiovascular: Regular Rate, Rhythm, No Edema, No Gallop, No JVD, No Murmur, Normal Peripheral Pulses Gastrointestinal: Normal Bowel Sounds, No Organomegaly, No Pulsatile Mass, Non Tender, Soft Back: Normal Inspection, No CVA Tenderness, No Vertebral Tenderness Extremity: Normal Capillary Refill, Normal Inspection, Normal Range of Motion, Non Tender, No Calf Tenderness, No Pedal Edema Neurologic/Psychiatric: Alert, Oriented x3, central supply aide II-XII Norm as Tested, Abnormal Gait, Depressed Affect, Facial Droop (right), Motor Weakness (right sided 1/5 upper and lower) Skin: Normal Color, Warm/Dry Lymphatic: No Adenopathy Results/Procedures Lab Patient resulted labs reviewed. FIM Transfers Therapy Code Descriptions/Definitions Functional [place] Measure: 0=Not Assessed/NA 4=Minimal Assistance 1=Total Assistance 5=Supervision or Setup 2=Maximal Assistance 6=Modified [place] 3=Moderate Assistance 7=Complete IndependenceSCALE: Activities may be completed with or without assistive devices. 5-Dmnsconnbb-rhmlbeq completes the activity by him/herself with no assistance from a helper. 5-Set-up or Clean-up Assistance-helper sets up or cleans up; patient completes activity. [place] assists only prior to or following the activity. 4-Supervision or Touching Assistance-helper provides verbal cues and/or touching/steadying and/or contact guard assistance as patient completes activity. Assistance may be provided throughout the activity or intermittently. 3-Partial/Moderate Assistance-helper does LESS THAN HALF the effort. [place] lifts, holds or supports trunk or limbs, but provides less than half the effort. 2-Substantial/Maximal Assistance-helper does MORE THAN HALF the effort. [place] lifts or holds trunk or limbs and provides more than half the effort. 7-Yrpqpsutm-wfmzxd does ALL the effort. Patient does none of the effort to complete the activity. Or, the assistance of 2 or more helpers is required for the patient to complete the activity. If activity was not attempted, code reason: 7-Patient Refused. 9-Not Applicable-not attempted and the patient did not perform the activity before the current illness, exacerbation or injury. 10-Not Attempted due to Environmental Limitations-(lack of equipment, weather restraints, etc.). 88-Not Attempted due to Medical Conditions or Safety Concerns. Roll Left to Right (QC): 2 Sit to Lying (QC): 2 Sit to Stand (QC): 1 Chair/Xuh-eg-Lkbbt Xfer(QC): 1 Car Transfer (QC): 88 Gait Training Does the Patient Walk?: No and Walking Goal IS indicated Walk 10 feet (QC): 2 Walk 50 ft with 2 Turns(QC): 88 Walk 150 ft (QC): 88 Walking 10ft/uneven surface-QC: 88 Gait Assistive Device: FWW Wheelchair Training Does the Pt Use a Wheelchair?: Yes Distance: 50' Wheel 50 ft with 2 turns (QC): 3 Wheel 150 ft (QC): 3 Type of Wheelchair: Manual Stair Training 1 Step (curb) (QC): 88 4 Steps (QC): 88 12 Steps (QC): 88 Balance Picking up an Object (QC): 88 ADL-Treatment Eating (QC): 4 Oral Hygiene (QC): 5 Shower/Bathe Self (QC): 2 Upper Body Dressing (QC): 2 Lower Body Dressing (QC): 1 On/Off Footwear (QC): 1 Toileting Hygiene (QC): 1 Toilet Transfer (QC): 1 Assessment/Plan Assessment and Plan Assess & Plan/Chief Complaint Assessment: CVA subacute not a tPa candidate Right sided weakness now progressed to flaccidity Dysarthria Dysphagia HTN urgency New DM HGA1C 9.5 Plan: Accuchecks PT OT MRI and carotid noted Supportive care 05/17/2022: DM education Tely Increase insulin and add Metformin 05/18/2022: DC catheter tomorrow 05/19/2022: NH placement? 05/20/2022: NHP 05/21/2022: Monitor closely Incontinence care (1) CVA (cerebral vascular accident) LUANNE MARIE DO May 21, 2022 07:28
[2022-05-21 08:00] VITALS: BP 142/63
--- NOTE | 2022-05-21 08:51 | Occupational Ther Daily Note ---
OT Current Status-Daily Note Subjective Pt sleeping in bed. Pt difficult to wake, agrees to therapy. Pt aphasic and has difficulty with word finding and expressing wants and needs. Co-treat with PT ([id number]), skills of 2 clinicians required to decrease fall risk, work on progressing from dependent transfer, working on standing in //bars and R UE/LE positioning during mobility. PT focusing on transfers, standing and LE placement while OT focusing on ADLs, functional mobility and UE placement. Mental Status/Objective Patient Orientation: Person, Non-Verbal/Aphasic, Situation, [place] Attachments: IV ADL-Treatment Set up for eating then verbal cues to slow down and swallow between bites. Therapy Code Descriptions/Definitions Functional [place] Measure: 0=Not Assessed/NA 4=Minimal Assistance 1=Total Assistance 5=Supervision or Setup 2=Maximal Assistance 6=Modified [place] 3=Moderate Assistance 7=Complete IndependenceSCALE: Activities may be completed with or without assistive devices. 8-Wquhioenhc-ygjdwak completes the activity by him/herself with no assistance from a helper. 5-Set-up or Clean-up Assistance-helper sets up or cleans up; patient completes activity. [place] assists only prior to or following the activity. 4-Supervision or Touching Assistance-helper provides verbal cues and/or touching/steadying and/or contact guard assistance as patient completes activity. Assistance may be provided throughout the activity or intermittently. 3-Partial/Moderate Assistance-helper does LESS THAN HALF the effort. [place] lifts, holds or supports trunk or limbs, but provides less than half the effort. 2-Substantial/Maximal Assistance-helper does MORE THAN HALF the effort. [place] lifts or holds trunk or limbs and provides more than half the effort. 5-Fircqcpsn-gdoekx does ALL the effort. Patient does none of the effort to complete the activity. Or, the assistance of 2 or more helpers is required for the patient to complete the activity. If activity was not attempted, code reason: 7-Patient Refused. 9-Not Applicable-not attempted and the patient did not perform the activity before the current illness, exacerbation or injury. 10-Not Attempted due to Environmental Limitations-(lack of equipment, weather restraints, etc.). 88-Not Attempted due to Medical Conditions or Safety Concerns. Eating (QC): 4 On/Off Footwear: 1 Other Treatment Placement of L UE on w/c wheel to attempt to propel w/c, max A needed. Dependent with transfers. Pt has tendency to grasp surface being transferred to and push away instead of pulling towards, max A x2. Working on pt's visual/hand coordination with L UE with crossing midline and at varying heights on R side. Pt able to track well. W/c sit up completed 2 sets 10 reps, pt fatigues quickly and requires min A for correct technique. After session, pt sitting in recliner eating breakfast. Safety measures in place, call light in reach. All needs met. OT Short Term Goals Short Term Goals Time Frame: May 30, 2022 Oral hygiene: 4 Upper body dressin Lower body dressin Putting on/taking off footwear: 4 OT Rock Climbing Team Member Goals Rock Climbing Team Member Goals Time Frame: Jun 15, 2022 Acute change in mental status: 0 Inattention: 0 Disorganized thinkin Altered level of consciousness: 0 Eating (QC): 5 Oral Hygiene (QC): 5 Toileting Hygiene (QC): 6 Shower/Bathe Self (QC): 4 Upper Body Dressing (QC): 5 Lower Body Dressing (QC): 5 On/Off Footwear (QC): 5 Additional Goals: 1-Demonstrate ADL Tasks, 2-Verbalize Understanding, 3- ImproveStrength/Ha 1=Demonstrate adherence to instructed precautions during ADL tasks. 2=Patient will verbalize/demonstrate understanding of assistive devices/modifications for ADL. 3=Patient will improve strength/tolerance for activity to enable patient to perform ADL's. OT Education/Plan Problem List/Assessment Assessment: Decreased Activ Tolerance, Decreased Safety Aware, Decreased UE Strength, Dependent Transfers, Impaired Bed Mobility, Impaired Coordination, Impaired Funct Balance, Impaired Self-Care Skills, Restricted Funct UE ROM, Visual-Perceptual Deficit Discharge Recommendations Plan/Recommendations: Continue POC Treatment Plan/Plan of Care Patient would benefit from OT for education, treatment and training to promote independence in ADL's, mobility, safety and/or upper extremity function for ADL's. Plan of Care: ADL Retraining, Functional Mobility, Group Exercise/Act as Ind, UE Funct Exercise/Act, UE Neuromus Re-Ed/Coord, W/C Management Training Treatment Duration: Jun 15, 2022 Frequency: At least 5 of 7 days/Wk (IRF) Estimated Hrs Per Day: 1.5 hours per day Agreement: Yes Rehab Potential: Guarded Time Start Time: 08:00 Stop Time: 09:00 DATE: May 21, 2022 Total Time Billed (hr/min): 60 Billed Treatment Time 1 visit-ADL 1 (20 min) NM 3 (40 min) co-treat with PT [id number] KRISTA KEE May 21, 2022 08:51
--- NOTE | 2022-05-21 08:52 | Physical Therapy Daily Note ---
PT Daily Note-Current Subjective Patient in bed pre tx, agrees to PT, has no complaints of pain. Will be co- treating with OT due to poor patient mobility, strength, endurance, severe debility, coordinate UE and LE during activity, safety and reduce risk of falls. Pain Section J - Health Conditions 1. Rarely or not at all 2. Occasionally 3. Frequently 4. Almost constantly 8. Unable to answer Pain Effect on Sleep: 1 Pain Interference with Therapy: 1 Pain Interference w/Day-to-Day: 1 Appearance Patient in recliner post tx with nurse call, phone, tray, all needs met, chair alarm on. Mental Status Patient Orientation: Person, Unable to Assess, Non-Verbal/Aphasic Transfers SCALE: Activities may be completed with or without assistive devices. 2-Ujfrgnujcp-rbmdjsq completes the activity by him/herself with no assistance from a helper. 5-Set-up or Clean-up Assistance-helper sets up or cleans up; patient completes activity. [place] assists only prior to or following the activity. 4-Supervision or Touching Assistance-helper provides verbal cues and/or touchi ng/steadying and/or contact guard assistance as patient completes activity. Assistance may be provided throughout the activity or intermittently. 3-Partial/Moderate Assistance-helper does LESS THAN HALF the effort. [place] lifts, holds or supports trunk or limbs, but provides less than half the effort. 2-Substantial/Maximal Assistance-helper does MORE THAN HALF the effort. [place] lifts or holds trunk or limbs and provides more than half the effort. 9-Ezlqbjpqk-yoxqyw does ALL the effort. Patient does none of the effort to complete the activity. Or, the assistance of 2 or more helpers is required for the patient to complete the activity. If activity was not attempted, code reason: 7-Patient Refused. 9-Not Applicable-not attempted and the patient did not perform the activity before the current illness, exacerbation or injury. 10-Not Attempted due to Environmental Limitations-(lack of equipment, weather restraints, etc.). 88-Not Attempted due to Medical Conditions or Safety Concerns. Roll Left & Right (QC): 2 Lying to Sitting/Side of Bed(Q: 2 Sit to Stand (QC): 1 Chair/Gab-ox-Vebjo Xfer(QC): 1 Patient sat to the side of the bed with max assist, assist to scoot forward and dependent stand pivot transfer to WC. After getting back to her room at the end of tx, another dependent stand pivot transfer to her recliner. Wheelchair Training Does the Pt Use a Wheelchair?: Yes Wheel 50 ft with 2 turns (QC): 2 Wheel 150 ft (QC): 2 Type of Wheelchair: Manual 300', max assist, patient is able to help propel WC using left arm, she didn't really use left leg to assist with steering or propelling even with cues. Exercises Patient performed trunk balance and strengthening activity with a reaching activity, also performed 2 sets of 10 of seated sit-ups. Treatments PT performed bed mobility and transfers, WC mobility, trunk strengthening and balance, OT performed reaching activity, assisted with transfers, UE ROM, UE pos itioning and safety during activity. Assessment Current Status: Poor Progress patient continues to decline in functional mobility PT [facility] Goals Capacity Analyst Goals PT [facility] Goals Time Frame: May 30, 2022 Roll Left & Right (QC): 4 Sit to Lying (QC): 4 Lying-Sitting on Side/Bed(QC): 4 Sit to Stand (QC): 4 (CGA) Chair/Tgo-vz-Axfuk Xfer(QC): 4 (CGA) Toilet Transfer (QC): 4 (CGA) Car Transfer (QC): 4 (CGA) Does the Patient Walk: Yes Walk 10 feet (QC): 4 (CGA) Walk 50ft with 2 Turns (QC): 4 (CGA) Walk 150 ft (QC): 4 (CGA) Walking 10ft on Uneven Surface: 4 (CGA) 1 Step (curb) (QC): 3 (Ward) 4 Steps (QC): 3 (Ward) 12 Steps (QC): 88 Picking up an Object (QC): 4 (CGA using tattoo and body artist) Wheel 50 feet with 2 turns (QC: 4 (SBA) Wheel 150 feet: 4 (SBA) PT Plan Problem List Problem List: Activity Tolerance, Functional Strength, Safety, Balance, Gait, Transfer, Bed Mobility, ROM Treatment/Plan Treatment Plan: Continue Plan of Care Treatment Plan: Bed Mobility, Education, Functional Activity Ha, Functional Strength, Group Therapy, Gait, Safety, Therapeutic Exercise, Transfers Treatment Duration: May 30, 2022 Frequency: At least 5 of 7 days/Wk (IRF) Estimated Hrs Per Day: 1.5 hours per day Patient and/or Family Agrees t: Yes Safety Risks/Education Patient Education: Transfer Techniques, Correct Positioning, W/C Management, Safety Issues Teaching Recipient: Patient Teaching Methods: Demonstration, Discussion Response to Teaching: Reinforcement Needed Time Time In: 0800 Time Out: 0900 DATE: May 21, 2022 Total Billed Treatment Time: 60 Total Billed Treatment 1 visit FA 45' EX 15' LEXY YATES PT May 21, 2022 08:52
[2022-05-21] MEDS: ASPIRIN 325 MG (5 GR) TABLET PO SCH (10:40)
[2022-05-21] MEDS: amLODIPine 10 MG (NORVASC) TAB PO SCH (10:41)
[2022-05-21] MEDS: LOSARTAN 50 MG (COZAAR) TAB PO SCH (10:41)
[2022-05-21] MEDS: ENOXAPARIN 40 MG/0.4 ML (LOVENOX) SYR SC SCH (10:42)
[2022-05-21] MEDS: polyethylene glycoL POWDER 17 GM (MIRALAX) PACK PO SCH ×2 (10:51→20:19)
[2022-05-21] MEDS: DOCUSATE SODIUM 100 MG (COLACE) CAP PO SCH ×2 (10:52→20:19)
[2022-05-21] MEDS: SENNA W/DOCUSATE (SENOKOT S) TABLET PO SCH ×2 (10:52→20:19)
--- NOTE | 2022-05-21 13:13 | Speech Therapy Daily Note ---
Speech Daily Progress Note Subjective Date Seen by Provider: May 21, 2022 Time Seen by Provider: 09:00 The patient was seated upright, awake and alert, upon entrance to her room by the clinician. The patient greeted the clinician appropriately and was agreeable to participation in the language and dysphagia treatment session. Objective As the patient entered the room, the patient was completing breakfast (self- fed). The patient displayed moderate premature spillage of bolus material from the right labial side, as well as, a consistent posterior head tilt with cup drinks of thin liquid. Due to the observations, the clinician focused on strategies to improve P.O. intake and increase the oropharyngeal swallowing safety. The patient was provided a nosey cup with mildly thick liquids. With the nosey cup, the patient is able to keep her chin level during intake of mildly thick liquid to the oral cavity. Additionally, the importance and safety of small sips were reviewed and practiced repetitiously. The small sips eliminated anterior spillage of mildly thick liquids from the right labial side. The clinician reviewed all safe swallowing precautions with the patient which included: upright and alert, small sip size, chin tuck with mildly thick liquids, use of the nosey cup, presenting food and liquid to the strong right side, and assess for oral pocketing. Additionally, word-finding strategies were discussed and practiced. The patient is displaying increased improvement with verbal communication with ease of word- finding occurring with additional response time is provided. Assessment Assessment Current Status: Good Progress Treatment Plan Continue Plan of Care Speech Short Term Goals Short Term Goals Short Term Goals 1. The patient will complete oral motor exercises with 80% accuracy, independently. 2. The patient will complete word-finding exercises with 50% accuracy with moderate clinician verbal cueing. Time Frame-STG: Two Weeks. Speech Trend Investigator Goals Trend Investigator Goals 1. The patient will improve cognitive linguistic skills for safe discharge to the least restrictive environment. Time Frame: Three Weeks. Speech-Plan Treatment Plan Speech Therapy Treatment Plan: Continue Plan of Care Treatment Duration: Jun 06, 2022 Frequency: Modified Program (IRF) Estimated Hrs Per Day: Other Rehab Potential: Guarded Safety Risks/Education Teaching Recipient: Patient Teaching Methods: Demonstration, Discussion Response to Teaching: Verbalize Understanding, Return Demonstration, Reinforcement Needed Education Topics Provided: Safe Swallowing Precautions, Word-Finding Strategies Time Speech Therapy Time In: 09:00 Speech Therapy Time Out: 09:45 DATE: May 21, 2022 Total Billed Time: 65 Billed Treatment Time 1, DYST, SLTS Additional Time: 1200 to 1220 PEDRO BUENROSTRO May 21, 2022 13:13
[2022-05-21 15:14] VITALS: BP 119/59
[2022-05-21] MEDS: CALCIUM CARBONATE 500 MG (TUMS) TAB.CHEW PO PRN (20:30)
[2022-05-21 23:49] VITALS: BP 155/71
[2022-05-22] MEDS: inSUlin ASPART (NovoLOG) 1 UNIT/0.01 ML (CHARGE PER UNIT) SC SCH ×7 (05:29→20:58)
--- NOTE | 2022-05-22 05:29 | PM&R Progress Note ---
Subjective HPI/CC On Admission Date Seen by Provider: May 22, 2022 Time Seen by Provider: 12:30 Subjective/Events-last exam 05/22/2022: Improved Family education and training provided No falls No pain Maintaining good participation 05/21/2022: No major issues Likely needs NHP Very flaccid since extension of the CVA No falls Change diet so aspiration less apt 05/20/2022: Flaccidity is profound Modified swallow today Dependent Needs NHP 05/19/2022: Flaccidity of right side is concerning NH placement could be required BP and BS stable Dependence 05/18/2022: No major events Will DC catheter tomorrow No pain reported No falls 05/17/2022: Settling in well Resting after therapy currently Denies pain BP improved Added insulin for elevated sugars HGA1C 9.3 Tely ordered for eval of cryptogenic CVA Review of Systems General: Fatigue, Malaise Neurological: Weakness, Incoordination Objective Exam Vital Signs Vital Signs Date Time Temp Pulse Resp B/P (MAP) Pulse Ox O2 Delivery O2 Flow Rate FiO2 05/23/22 00:12 36.3 84 18 136/65 (88) 94 Room Air 05/21/22 09:58 Capillary Refill : General Appearance: No Apparent Distress, WD/WN, Chronically ill, Obese HEENT: PERRL/EOMI, Normal ENT Inspection, Pharynx Normal Neck: Full Range of Motion, Normal Inspection, Non Tender, Supple, Carotid Bruit Respiratory: Chest Non Tender, Lungs Clear, Normal Breath Sounds, No Accessory Muscle Use, No Respiratory Distress Cardiovascular: Regular Rate, Rhythm, No Edema, No Gallop, No JVD, No Murmur, Normal Peripheral Pulses Gastrointestinal: Normal Bowel Sounds, No Organomegaly, No Pulsatile Mass, Non Tender, Soft Back: Normal Inspection, No CVA Tenderness, No Vertebral Tenderness Extremity: Normal Capillary Refill, Normal Inspection, Normal Range of Motion, Non Tender, No Calf Tenderness, No Pedal Edema Neurologic/Psychiatric: Alert, Oriented x3, escalator mechanic II-XII Norm as Tested, Abnormal Gait, Depressed Affect, Facial Droop (right), Motor Weakness (right sided 1/5 upper and lower) Skin: Normal Color, Warm/Dry Lymphatic: No Adenopathy Results/Procedures Lab Patient resulted labs reviewed. FIM Transfers Therapy Code Descriptions/Definitions Functional [place] Measure: 0=Not Assessed/NA 4=Minimal Assistance 1=Total Assistance 5=Supervision or Setup 2=Maximal Assistance 6=Modified [place] 3=Moderate Assistance 7=Complete IndependenceSCALE: Activities may be completed with or without assistive devices. 3-Hrqayttuoz-vkfcbrk completes the activity by him/herself with no assistance from a helper. 5-Set-up or Clean-up Assistance-helper sets up or cleans up; patient completes activity. [place] assists only prior to or following the activity. 4-Supervision or Touching Assistance-helper provides verbal cues and/or touching/steadying and/or contact guard assistance as patient completes activity. Assistance may be provided throughout the activity or intermittently. 3-Partial/Moderate Assistance-helper does LESS THAN HALF the effort. [place] lift s, holds or supports trunk or limbs, but provides less than half the effort. 2-Substantial/Maximal Assistance-helper does MORE THAN HALF the effort. [place] lifts or holds trunk or limbs and provides more than half the effort. 3-Ilfmougqe-nbrkha does ALL the effort. Patient does none of the effort to complete the activity. Or, the assistance of 2 or more helpers is required for the patient to complete the activity. If activity was not attempted, code reason: 7-Patient Refused. 9-Not Applicable-not attempted and the patient did not perform the activity before the current illness, exacerbation or injury. 10-Not Attempted due to Environmental Limitations-(lack of equipment, weather restraints, etc.). 88-Not Attempted due to Medical Conditions or Safety Concerns. Roll Left to Right (QC): 2 Sit to Lying (QC): 2 Sit to Stand (QC): 1 Chair/Bqq-qr-Aeuoz Xfer(QC): 1 Car Transfer (QC): 88 Gait Training Does the Patient Walk?: No and Walking Goal IS indicated Walk 10 feet (QC): 2 Walk 50 ft with 2 Turns(QC): 88 Walk 150 ft (QC): 88 Walking 10ft/uneven surface-QC: 88 Gait Assistive Device: FWW Wheelchair Training Does the Pt Use a Wheelchair?: Yes Distance: 50' Wheel 50 ft with 2 turns (QC): 2 Wheel 150 ft (QC): 2 Type of Wheelchair: Manual Stair Training 1 Step (curb) (QC): 88 4 Steps (QC): 88 12 Steps (QC): 88 Balance Picking up an Object (QC): 88 ADL-Treatment Eating (QC): 4 Oral Hygiene (QC): 5 Shower/Bathe Self (QC): 2 Upper Body Dressing (QC): 2 Lower Body Dressing (QC): 1 On/Off Footwear (QC): 1 Toileting Hygiene (QC): 1 Toilet Transfer (QC): 1 Assessment/Plan Assessment and Plan Assess & Plan/Chief Complaint Assessment: CVA subacute not a tPa candidate Right sided weakness now progressed to flaccidity Dysarthria Dysphagia HTN urgency New DM HGA1C 9.5 Plan: Accuchecks PT OT MRI and carotid noted Supportive care 05/17/2022: DM education Tely Increase insulin and add Metformin 05/18/2022: DC catheter tomorrow 05/19/2022: NH placement? 05/20/2022: NHP 05/21/2022: Monitor closely Incontinence care 05/22/2022: Insulin adjustment (1) CVA (cerebral vascular accident) LUANNE MARIE DO May 22, 2022 05:29
[2022-05-22] MEDS: metFORMIN 500 MG (GLUCOPHAGE) TAB PO SCH (06:45)
[2022-05-22] MEDS: KCL 10 MEQ TAB (MICRO K) PO SCH (06:46)
[2022-05-22 07:52] VITALS: BP 134/81
--- NOTE | 2022-05-22 08:12 | Physical Therapy Daily Note ---
PT Daily Note-Current Subjective Patient in recliner pre tx, agrees to PT, has no complaints of pain. Will be co-treating with OT due to poor patient mobility, strength, endurance, severe debility, coordinate UE and LE during activity, safety and reduce risk of falls. Pain Section J - Health Conditions 1. Rarely or not at all 2. Occasionally 3. Frequently 4. Almost constantly 8. Unable to answer Pain Effect on Sleep: 1 Pain Interference with Therapy: 1 Pain Interference w/Day-to-Day: 1 Appearance Patient in bed post tx with nurse call, phone, tray, bed alarm on. Mental Status Patient Orientation: Person, Unable to Assess, Non-Verbal/Aphasic Transfers SCALE: Activities may be completed with or without assistive devices. 1-Pioasczzqw-xdmecpa completes the activity by him/herself with no assistance from a helper. 5-Set-up or Clean-up Assistance-helper sets up or cleans up; patient completes activity. [place] assists only prior to or following the activity. 4-Supervision or Touching Assistance-helper provides verbal cues and/or touching/steadying and/or contact guard assistance as patient completes activity. Assistance may be provided throughout the activity or intermittently. 3-Partial/Moderate Assistance-helper does LESS THAN HALF the effort. [place] lifts, holds or supports trunk or limbs, but provides less than half the effort. 2-Substantial/Maximal Assistance-helper does MORE THAN HALF the effort. [place] lifts or holds trunk or limbs and provides more than half the effort. 1-Yjtbdfctz-oawlqm does ALL the effort. Patient does none of the effort to complete the activity. Or, the assistance of 2 or more helpers is required for the patient to complete the activity. If activity was not attempted, code reason: 7-Patient Refused. 9-Not Applicable-not attempted and the patient did not perform the activity before the current illness, exacerbation or injury. 10-Not Attempted due to Environmental Limitations-(lack of equipment, weather restraints, etc.). 88-Not Attempted due to Medical Conditions or Safety Concerns. Roll Left & Right (QC): 3 Sit to Lying (QC): 3 Sit to Stand (QC): 2 Chair/Gse-ai-Juohh Xfer(QC): 2 Patient in recliner at start of tx, max assist stand pivot transfer to and patient propels to shower room. Patient stands and shower chair is placed behind her and she sits and then undresses and showers. When done patient dries off, partially dresses, and stands (max assist), and sits in WC. Patient stands again and finishes dressing and then propels WC to therapy gym. Wheelchair Training Does the Pt Use a Wheelchair?: Yes Wheel 50 ft with 2 turns (QC): 2 Type of Wheelchair: Manual 100'x2, patient uses left arm to propel, has difficulty using left foot to steer Exercises Patient stood in the parallel bars with assist of 2 for about 1 min each time, max assist to stand, patient bears some weight on her left leg but leans heavily to the right side, bears the most weight on her right leg. Treatments PT performed bed mobility and transfers, standing, positioning and safety during dressing and shower, WC mobility, OT performed bathing, dressing, UE positioning and safety during activity, assist with standing. Assessment Current Status: Fair Progress improved standing and transfers PT Theatre Arts Professor Goals Theatre Arts Professor Goals PT Theatre Arts Professor Goals Time Frame: May 30, 2022 Roll Left & Right (QC): 4 Sit to Lying (QC): 4 Lying-Sitting on Side/Bed(QC): 4 Sit to Stand (QC): 4 (CGA) Chair/Kgh-lc-Bwtlz Xfer(QC): 4 (CGA) Toilet Transfer (QC): 4 (CGA) Car Transfer (QC): 4 (CGA) Does the Patient Walk: Yes Walk 10 feet (QC): 4 (CGA) Walk 50ft with 2 Turns (QC): 4 (CGA) Walk 150 ft (QC): 4 (CGA) Walking 10ft on Uneven Surface: 4 (CGA) 1 Step (curb) (QC): 3 (Ward) 4 Steps (QC): 3 (Ward) 12 Steps (QC): 88 Picking up an Object (QC): 4 (CGA using buckle attaching machine operator) Wheel 50 feet with 2 turns (QC: 4 (SBA) Wheel 150 feet: 4 (SBA) PT Plan Problem List Problem List: Activity Tolerance, Functional Strength, Safety, Balance, Gait, Transfer, Bed Mobility, ROM Treatment/Plan Treatment Plan: Continue Plan of Care Treatment Plan: Bed Mobility, Education, Functional Activity Ha, Functional Strength, Group Therapy, Gait, Safety, Therapeutic Exercise, Transfers Treatment Duration: May 30, 2022 Frequency: At least 5 of 7 days/Wk (IRF) Estimated Hrs Per Day: 1.5 hours per day Patient and/or Family Agrees t: Yes Safety Risks/Education Patient Education: Transfer Techniques, Correct Positioning, W/C Management, Safety Issues Teaching Recipient: Patient Teaching Methods: Demonstration, Discussion Response to Teaching: Reinforcement Needed Time Time In: 0800 Time Out: 0900 DATE: May 22, 2022 Total Billed Treatment Time: 60 Total Billed Treatment 1 visit FA 60' co-treated for 60' LEXY YATES PT May 22, 2022 08:12
[2022-05-22] MEDS: ASPIRIN 325 MG (5 GR) TABLET PO SCH (09:42)
[2022-05-22] MEDS: amLODIPine 10 MG (NORVASC) TAB PO SCH (09:43)
[2022-05-22] MEDS: LOSARTAN 50 MG (COZAAR) TAB PO SCH (09:43)
[2022-05-22] MEDS: ENOXAPARIN 40 MG/0.4 ML (LOVENOX) SYR SC SCH (09:43)
[2022-05-22] MEDS: DOCUSATE SODIUM 100 MG (COLACE) CAP PO SCH ×2 (10:01→20:57)
[2022-05-22] MEDS: polyethylene glycoL POWDER 17 GM (MIRALAX) PACK PO SCH ×2 (10:01→20:58)
[2022-05-22] MEDS: SENNA W/DOCUSATE (SENOKOT S) TABLET PO SCH ×2 (10:02→20:58)
--- NOTE | 2022-05-22 12:56 | Occupational Ther Daily Note ---
OT Current Status-Daily Note Subjective Pt alert, lying in bed. Pt agrees to therapy. No c/o pain. Mental Status/Objective Patient Orientation: Person, Place, Time, Situation ADL-Treatment Set up and monitoring breakfast to make sure pt slows down and swallows between bites. Pt then requested to use BSC. Max A for transfer then 2nd person assist to manipulate clothing and hygiene. After session, pt sitting in recliner with call light/phone in reach. All needs met in room. Therapy Code Descriptions/Definitions Functional [place] Measure: 0=Not Assessed/NA 4=Minimal Assistance 1=Total Assistance 5=Supervision or Setup 2=Maximal Assistance 6=Modified [place] 3=Moderate Assistance 7=Complete IndependenceSCALE: Activities may be completed with or without assistive devices. 1-Uolpqdcoox-jivbtpf completes the activity by him/herself with no assistance from a helper. 5-Set-up or Clean-up Assistance-helper sets up or cleans up; patient completes activity. [place] assists only prior to or following the activity. 4-Supervision or Touching Assistance-helper provides verbal cues and/or touching/steadying and/or contact guard assistance as patient completes activity. Assistance may be provided throughout the activity or intermittently. 3-Partial/Moderate Assistance-helper does LESS THAN HALF the effort. [place] l ifts, holds or supports trunk or limbs, but provides less than half the effort. 2-Substantial/Maximal Assistance-helper does MORE THAN HALF the effort. [place] lifts or holds trunk or limbs and provides more than half the effort. 9-Shjtyubqy-zeriss does ALL the effort. Patient does none of the effort to complete the activity. Or, the assistance of 2 or more helpers is required for t he patient to complete the activity. If activity was not attempted, code reason: 7-Patient Refused. 9-Not Applicable-not attempted and the patient did not perform the activity before the current illness, exacerbation or injury. 10-Not Attempted due to Environmental Limitations-(lack of equipment, weather restraints, etc.). 88-Not Attempted due to Medical Conditions or Safety Concerns. Eating (QC): 4 Toileting Hygiene (QC): 1 Toilet Transfer (QC): 1 OT Short Term Goals Short Term Goals Time Frame: May 30, 2022 Oral hygiene: 4 Upper body dressin Lower body dressin Putting on/taking off footwear: 4 OT [employer] Specialist Goals [facility] Goals Time Frame: Jun 15, 2022 Acute change in mental status: 0 Inattention: 0 Disorganized thinkin Altered level of consciousness: 0 Eating (QC): 5 Oral Hygiene (QC): 5 Toileting Hygiene (QC): 6 Shower/Bathe Self (QC): 4 Upper Body Dressing (QC): 5 Lower Body Dressing (QC): 5 On/Off Footwear (QC): 5 Additional Goals: 1-Demonstrate ADL Tasks, 2-Verbalize Understanding, 3-Im proveStrength/Ha 1=Demonstrate adherence to instructed precautions during ADL tasks. 2=Patient will verbalize/demonstrate understanding of assistive devices/modifications for ADL. 3=Patient will improve strength/tolerance for activity to enable patient to perform ADL's. OT Education/Plan Problem List/Assessment Assessment: Decreased Activ Tolerance, Decreased UE Strength, Dependent Transfers, Impaired Self-Care Skills, Restricted Funct UE ROM, Visual-Perceptual Deficit Discharge Recommendations Plan/Recommendations: Continue POC Treatment Plan/Plan of Care Patient would benefit from OT for education, treatment and training to promote independence in ADL's, mobility, safety and/or upper extremity function for ADL's. Plan of Care: ADL Retraining, Functional Mobility, Group Exercise/Act as Ind, UE Funct Exercise/Act, UE Neuromus Re-Ed/Coord, W/C Management Training Treatment Duration: Jun 15, 2022 Frequency: At least 5 of 7 days/Wk (IRF) Estimated Hrs Per Day: 1.5 hours per day Agreement: Yes Rehab Potential: Guarded Time Start Time: 07:15 Stop Time: 07:30 DATE: May 22, 2022 Total Time Billed (hr/min): 15 Billed Treatment Time 1 visit-ADL 1 (15 min) KRISTA KEE May 22, 2022 12:56
--- NOTE | 2022-05-22 13:01 | Occupational Ther Daily Note ---
OT Current Status-Daily Note Subjective Pt alert, sitting in recliner. Pt agrees to therapy. Pt is improving with word finding and making wants and needs known. Co-treat with PT [id number], skills of 2 clinicians required to decrease fall risk, increase functional mobility during tasks and increase stamina. PT focusing on transfers, standing and w/c mobility while OT focusing on ADLs, functional mobility and L UE. Mental Status/Objective Patient Orientation: Person, Place, Time, Situation ADL-Treatment Pt completed sit to stand with Max A while chairs switched out for shower. Pt completed upper body bathing with cues and assist with all other areas. Pt continent of bowel though requires assist x2 for toilet transfer and toileting. Max A for upper body dressing and footwear. Dependent for lower body dressing. Pt requires max A for standing and assist from 2nd person to maintain standing. After session, pt lying in bed with call light/phone in reach. All needs met in room. Therapy Code Descriptions/Definitions Functional [place] Measure: 0=Not Assessed/NA 4=Minimal Assistance 1=Total Assistance 5=Supervision or Setup 2=Maximal Assistance 6=Modified [place] 3=Moderate Assistance 7=Complete IndependenceSCALE: Activities may be completed with or without assistive devices. 1-Ichmwtpnsd-yecwvmb completes the activity by him/herself with no assistance from a helper. 5-Set-up or Clean-up Assistance-helper sets up or cleans up; patient completes activity. [place] assists only prior to or following the activity. 4-Supervision or Touching Assistance-helper provides verbal cues and/or touching/steadying and/or contact guard assistance as patient completes activity. Assistance may be provided throughout the activity or intermittently. 3-Partial/Moderate Assistance-helper does LESS THAN HALF the effort. [place] lifts, holds or supports trunk or limbs, but provides less than half the effort. 2-Substantial/Maximal Assistance-helper does MORE THAN HALF the effort. [place] lifts or holds trunk or limbs and provides more than half the effort. 2-Iefwtzsns-zrixwy does ALL the effort. Patient does none of the effort to complete the activity. Or, the assistance of 2 or more helpers is required for the patient to complete the activity. If activity was not attempted, code reason: 7-Patient Refused. 9-Not Applicable-not attempted and the patient did not perform the activity before the current illness, exacerbation or injury. 10-Not Attempted due to Environmental Limitations-(lack of equipment, weather restraints, etc.). 88-Not Attempted due to Medical Conditions or Safety Concerns. Shower/Bathe Self (QC): 2 Upper Body Dressing (QC): 2 Lower Body Dressing (QC): 1 On/Off Footwear: 2 Toileting Hygiene (QC): 1 Toilet Transfer (QC): 1 OT Short Term Goals Short Term Goals Time Frame: May 30, 2022 Oral hygiene: 4 Upper body dressin Lower body dressin Putting on/taking off footwear: 4 OT Penitentiary Goals Penitentiary Goals Time Frame: Jun 15, 2022 Acute change in mental status: 0 Inattention: 0 Disorganized thinkin Altered level of consciousness: 0 Eating (QC): 5 Oral Hygiene (QC): 5 Toileting Hygiene (QC): 6 Shower/Bathe Self (QC): 4 Upper Body Dressing (QC): 5 Lower Body Dressing (QC): 5 On/Off Footwear (QC): 5 Additional Goals: 1-Demonstrate ADL Tasks, 2-Verbalize Understanding, 3- ImproveStrength/Ha 1=Demonstrate adherence to instructed precautions during ADL tasks. 2=Patient will verbalize/demonstrate understanding of assistive devices/modifications for ADL. 3=Patient will improve strength/tolerance for activity to enable patient to perform ADL's. OT Education/Plan Problem List/Assessment Assessment: Decreased Activ Tolerance, Decreased UE Strength, Dependent Transfers, Impaired Bed Mobility, Impaired Funct Balance, Impaired Self-Care Skills, Restricted Funct UE ROM Discharge Recommendations Plan/Recommendations: Continue POC Treatment Plan/Plan of Care Patient would benefit from OT for education, treatment and training to promote independence in ADL's, mobility, safety and/or upper extremity function for ADL's. Plan of Care: ADL Retraining, Functional Mobility, Group Exercise/Act as Ind, UE Funct Exercise/Act, UE Neuromus Re-Ed/Coord, W/C Management Training Treatment Duration: Jun 15, 2022 Frequency: At least 5 of 7 days/Wk (IRF) Estimated Hrs Per Day: 1.5 hours per day Agreement: Yes Rehab Potential: Guarded Time Start Time: 08:00 Stop Time: 09:00 DATE: May 22, 2022 Total Time Billed (hr/min): 60 Billed Treatment Time 1 visit- ADL 4 (60 min) co-treat with PT 60 min) KRISTA KEE May 22, 2022 13:01
[2022-05-22 15:54] VITALS: BP 132/63
--- NOTE | 2022-05-22 20:51 | Physical Therapy Daily Note ---
PT Daily Note-Current Subjective Patient verbalized "good afternoon" back to therapist at initiation of session. Drooling noted this p.m. Patient frustrated that she had spilled broth/drink on her sheets which were saturated at the end off her bed. Pain Section J - Health Conditions 1. Rarely or not at all 2. Occasionally 3. Frequently 4. Almost constantly 8. Unable to answer Pain Effect on Sleep: 1 Pain Interference with Therapy: 1 Pain Interference w/Day-to-Day: 1 Transfers SCALE: Activities may be completed with or without assistive devices. 8-Qvddaeduuw-alastfa completes the activity by him/herself with no assistance from a helper. 5-Set-up or Clean-up Assistance-helper sets up or cleans up; patient completes activity. [place] assists only prior to or following the activity. 4-Supervision or Touching Assistance-helper provides verbal cues and/or touching/steadying and/or contact guard assistance as patient completes activity. Assistance may be provided throughout the activity or intermittently. 3-Partial/Moderate Assistance-helper does LESS THAN HALF the effort. [place] lifts, holds or supports trunk or limbs, but provides less than half the effort. 2-Substantial/Maximal Assistance-helper does MORE THAN HALF the effort. [place] lifts or holds trunk or limbs and provides more than half the effort. 8-Vgtbowkeo-povwoi does ALL the effort. Patient does none of the effort to complete the activity. Or, the assistance of 2 or more helpers is required for the patient to complete the activity. If activity was not attempted, code reason: 7-Patient Refused. 9-Not Applicable-not attempted and the patient did not perform the activity before the current illness, exacerbation or injury. 10-Not Attempted due to Environmental Limitations-(lack of equipment, weather restraints, etc.). 88-Not Attempted due to Medical Conditions or Safety Concerns. Bed mobility while changing patient's fitted sheet with patient in supine: Rolling to (R) mod (A) with max v.c. and use of bed railing x 3. Rolling to (L) max (A) x 2. Max (A) of 2 to scoot patient up in bed using citlali. Exercises (R) LE exercise: PROM x 10 (R) ankle pumps with gentle DF stretch at end range DF PROM (R) hip ER/IR x 10 with leg extended. PROM (R) hip abd/add x 10 PROM (R) knee SAQ x 10 Gentle (R) heel slide (avoiding abrasion on (R) knee) x 10 SLR x 10 reps PROM. -- patient fell asleep during PROM SLR. Assessment Patient continues with flaccid (R) LE, requiring extensive assist for bed mobility. At this time, demonstrates need for continued skilled care after D/C from ARU. PT Group Home Goals Sedimentationist Goals PT Sedimentationist Goals Time Frame: May 30, 2022 Roll Left & Right (QC): 4 Sit to Lying (QC): 4 Lying-Sitting on Side/Bed(QC): 4 Sit to Stand (QC): 4 (CGA) Chair/Qqb-sf-Mcjlq Xfer(QC): 4 (CGA) Toilet Transfer (QC): 4 (CGA) Car Transfer (QC): 4 (CGA) Does the Patient Walk: Yes Walk 10 feet (QC): 4 (CGA) Walk 50ft with 2 Turns (QC): 4 (CGA) Walk 150 ft (QC): 4 (CGA) Walking 10ft on Uneven Surface: 4 (CGA) 1 Step (curb) (QC): 3 (Ward) 4 Steps (QC): 3 (Ward) 12 Steps (QC): 88 Picking up an Object (QC): 4 (CGA using poultry farmworker) Wheel 50 feet with 2 turns (QC: 4 (SBA) Wheel 150 feet: 4 (SBA) PT Plan Problem List Problem List: Activity Tolerance, Functional Strength, Safety, Balance, Gait, Transfer, Bed Mobility, ROM Treatment/Plan Treatment Plan: Continue Plan of Care Treatment Plan: Bed Mobility, Education, Functional Activity Ha, Functional Strength, Group Therapy, Gait, Safety, Therapeutic Exercise, Transfers Treatment Duration: May 30, 2022 Frequency: At least 5 of 7 days/Wk (IRF) Estimated Hrs Per Day: 1.5 hours per day Patient and/or Family Agrees t: Yes Time Time In: 1230 Time Out: 1300 DATE: May 22, 2022 Total Billed Treatment Time: 30 Total Billed Treatment 15' FA, 15' Ex = 30' Lindsay Limon PT May 22, 2022 20:51
[2022-05-23 00:12] VITALS: BP 136/65
[2022-05-23] MEDS: inSUlin ASPART (NovoLOG) 1 UNIT/0.01 ML (CHARGE PER UNIT) SC SCH ×6 (06:26→22:49)
[2022-05-23] MEDS: KCL 10 MEQ TAB (MICRO K) PO SCH (06:27)
[2022-05-23] MEDS: metFORMIN 500 MG (GLUCOPHAGE) TAB PO SCH (06:27)
--- NOTE | 2022-05-23 06:45 | PM&R Progress Note ---
Subjective HPI/CC On Admission Date Seen by Provider: May 23, 2022 Time Seen by Provider: 13:30 Subjective/Events-last exam 05/23/2022: Dependent on transfers No BP issues Sugars reviewed CVA is catastrophic 05/22/2022: Improved Family education and training provided No falls No pain Maintaining good participation 05/21/2022: No major issues Likely needs NHP Very flaccid since extension of the CVA No falls Change diet so aspiration less apt 05/20/2022: Flaccidity is profound Modified swallow today Dependent Needs NHP 05/19/2022: Flaccidity of right side is concerning NH placement could be required BP and BS stable Dependence 05/18/2022: No major events Will DC catheter tomorrow No pain reported No falls 05/17/2022: Settling in well Resting after therapy currently Denies pain BP improved Added insulin for elevated sugars HGA1C 9.3 Tely ordered for eval of cryptogenic CVA Review of Systems General: Fatigue, Malaise Objective Exam Vital Signs Vital Signs Date Time Temp Pulse Resp B/P (MAP) Pulse Ox O2 Delivery O2 Flow Rate FiO2 05/23/22 16:11 36.5 80 16 154/76 (102) 93 Room Air 05/21/22 09:58 Capillary Refill : General Appearance: No Apparent Distress, WD/WN, Chronically ill, Obese HEENT: PERRL/EOMI, Normal ENT Inspection, Pharynx Normal Neck: Full Range of Motion, Normal Inspection, Non Tender, Supple, Carotid Bruit Respiratory: Chest Non Tender, Lungs Clear, Normal Breath Sounds, No Accessory Muscle Use, No Respiratory Distress Cardiovascular: Regular Rate, Rhythm, No Edema, No Gallop, No JVD, No Murmur, Normal Peripheral Pulses Gastrointestinal: Normal Bowel Sounds, No Organomegaly, No Pulsatile Mass, Non Tender, Soft Back: Normal Inspection, No CVA Tenderness, No Vertebral Tenderness Extremity: Normal Capillary Refill, Normal Inspection, Normal Range of Motion, Non Tender, No Calf Tenderness, No Pedal Edema Neurologic/Psychiatric: Alert, Oriented x3, chandelier maker II-XII Norm as Tested, Abnormal Gait, Depressed Affect, Facial Droop (right), Motor Weakness (right sided 1/5 upper and lower) Skin: Normal Color, Warm/Dry Lymphatic: No Adenopathy Results/Procedures Lab Patient resulted labs reviewed. FIM Transfers Therapy Code Descriptions/Definitions Functional [place] Measure: 0=Not Assessed/NA 4=Minimal Assistance 1=Total Assistance 5=Supervision or Setup 2=Maximal Assistance 6=Modified [place] 3=Moderate Assistance 7=Complete IndependenceSCALE: Activities may be completed with or without assistive devices. 1-Xtqhjeutmh-fvmhgma completes the activity by him/herself with no assistance from a helper. 5-Set-up or Clean-up Assistance-helper sets up or cleans up; patient completes activity. [place] assists only prior to or following the activity. 4-Supervision or Touching Assistance-helper provides verbal cues and/or touching/steadying and/or contact guard assistance as patient completes activity. Assistance may be provided throughout the activity or intermittently. 3-Partial/Moderate Assistance-helper does LESS THAN HALF the effort. [place] lifts, holds or supports trunk or limbs, but provides less than half the effort. 2-Substantial/Maximal Assistance-helper does MORE THAN HALF the effort. [place] lifts or holds trunk or limbs and provides more than half the effort. 7-Vjkmzstjo-bdraup does ALL the effort. Patient does none of the effort to complete the activity. Or, the assistance of 2 or more helpers is required for the patient to complete the activity. If activity was not attempted, code reason: 7-Patient Refused. 9-Not Applicable-not attempted and the patient did not perform the activity before the current illness, exacerbation or injury. 10-Not Attempted due to Environmental Limitations-(lack of equipment, weather restraints, etc.). 88-Not Attempted due to Medical Conditions or Safety Concerns. Roll Left to Right (QC): 3 Sit to Lying (QC): 3 Sit to Stand (QC): 2 Chair/Eij-nv-Uuehr Xfer(QC): 2 Car Transfer (QC): 88 Gait Training Does the Patient Walk?: No and Walking Goal IS indicated Walk 10 feet (QC): 2 Walk 50 ft with 2 Turns(QC): 88 Walk 150 ft (QC): 88 Walking 10ft/uneven surface-QC: 88 Gait Assistive Device: FWW Wheelchair Training Does the Pt Use a Wheelchair?: Yes Distance: 50' Wheel 50 ft with 2 turns (QC): 2 Wheel 150 ft (QC): 2 Type of Wheelchair: Manual Stair Training 1 Step (curb) (QC): 88 4 Steps (QC): 88 12 Steps (QC): 88 Balance Picking up an Object (QC): 88 ADL-Treatment Eating (QC): 4 Oral Hygiene (QC): 5 Shower/Bathe Self (QC): 2 Upper Body Dressing (QC): 2 Lower Body Dressing (QC): 1 On/Off Footwear (QC): 2 Toileting Hygiene (QC): 1 Toilet Transfer (QC): 1 Assessment/Plan Assessment and Plan Assess & Plan/Chief Complaint Assessment: CVA subacute not a tPa candidate Right sided weakness now progressed to flaccidity Dysarthria Dysphagia HTN urgency New DM HGA1C 9.5 Plan: Accuchecks PT OT MRI and carotid noted Supportive care 05/17/2022: DM education Tely Increase insulin and add Metformin 05/18/2022: DC catheter tomorrow 05/19/2022: NH placement? 05/20/2022: NHP 05/21/2022: Monitor closely Incontinence care 05/22/2022: Insulin adjustment 05/23/2022: Aggressive rehab (1) CVA (cerebral vascular accident) LUANNE MARIE DO May 23, 2022 06:45
[2022-05-23 08:00] VITALS: BP 136/74
[2022-05-23] MEDS: amLODIPine 10 MG (NORVASC) TAB PO SCH (08:59)
[2022-05-23] MEDS: LOSARTAN 50 MG (COZAAR) TAB PO SCH (08:59)
[2022-05-23] MEDS: ASPIRIN 325 MG (5 GR) TABLET PO SCH (08:59)
[2022-05-23] MEDS: ENOXAPARIN 40 MG/0.4 ML (LOVENOX) SYR SC SCH (09:00)
[2022-05-23] MEDS: SENNA W/DOCUSATE (SENOKOT S) TABLET PO SCH ×2 (09:01→22:40)
[2022-05-23] MEDS: polyethylene glycoL POWDER 17 GM (MIRALAX) PACK PO SCH ×2 (09:01→22:40)
[2022-05-23] MEDS: DOCUSATE SODIUM 100 MG (COLACE) CAP PO SCH ×2 (09:01→22:40)
--- NOTE | 2022-05-23 10:51 | Speech Therapy Daily Note ---
Speech Daily Progress Note Subjective Date Seen by Provider: May 23, 2022 Time Seen by Provider: 09:00 The patient was seated upright in her recliner, awake, upon entrance to her room by the clinician. The patient verbally greeted the patient appropriately and was agreeable to participation in the dysphagia and language treatment session. The patient remained fatigued throughout the therapy, however, continued with high participation. Objective The patient continues to display improving verbal communication, with a decrease in word-finding pauses and an increase in utterance length displayed. Oral motor exercises were introduced on this date, as well as, dysphagia strengthening exercises ([place], effortful swallow). The patient displayed fair accuracy with five repetitions of each exercise performed with a direct model provided by the clinician. A handout is provided in the patient's room for the patient to practice during downtime and throughout the weekend. The clinician utilized the treatment session to stress the importance of the safe swallowing precautions previously discussed, practiced, and posted in the patient's room. On this date, a second posting of the safe swallowing precautions were provided to the patient at bedside to aid as a visual cue and recall aid. The patient does not display any safe swallowing precautions, independently. Per patient's RN, the patient displayed coughing following crushed pill administration on this date. The clinician reviewed the results of the patient's swallow study, as well as, the visualized aspiration and laryngeal penetration that occurred. If the patient is unable to complete the precautions, the patient is at an extremely high risk for aspiration. The patient and clinician practiced each precaution throughout the treatment session. At the close of the session, the patient completed a drink of mildly thick liquids without the swallowing precautions previously discussed. The clinician brought the patient's attention to the swallowing precautions and she completed a second sip with the chin tuck. The patient displays impulsive behavior and should be monitored closely for aspiration risks. The clinician discussed the above with the patient's RN immediately following completion of the treatment session. The patient and clinician participated in structured conversation regarding barriers to safe discharge. The patient states her will be able to provide "some" support, however, her daughter is "nice" but will not be able to provide support at home following discharge. The patient stated her wo uld be comfortable helping her "in and out" of the bathroom but would not be comfortable providing support "during it" or her shower. The information was shared with the social work assistant following the treatment session. Assessment Assessment Current Status: Fair Progress Treatment Plan Continue Plan of Care Speech Short Term Goals Short Term Goals Short Term Goals 1. The patient will complete oral motor exercises with 80% accuracy, independently. 2. The patient will complete word-finding exercises with 50% accuracy with moderate clinician verbal cueing. Time Frame-STG: Two Weeks. Speech Jail Goals Cellophane Worker Goals 1. The patient will improve cognitive linguistic skills for safe discharge to the least restrictive environment. Time Frame: Three Weeks. Speech-Plan Treatment Plan Speech Therapy Treatment Plan: Continue Plan of Care Treatment Duration: Jun 06, 2022 Frequency: Modified Program (IRF) Estimated Hrs Per Day: Other Rehab Potential: Guarded Pt/Family Agrees to Plan: Yes Safety Risks/Education Teaching Recipient: Patient Teaching Methods: Discussion Response to Teaching: Return Demonstration, Reinforcement Needed Education Topics Provided: Safe Swallowing Strategies, S/s of Suspected Aspiration, Aspiration Risks, Word-Finding Strategies Time Speech Therapy Time In: 09:00 Speech Therapy Time Out: 09:30 DATE: May 23, 2022 Total Billed Time: 30 Billed Treatment Time MARIAJOSE Sorto SLTS 1000 to 1030 (second treatment session) PEDRO BUENROSTRO May 23, 2022 10:50
--- NOTE | 2022-05-23 11:00 | Occupational Ther Daily Note ---
OT Current Status-Daily Note Subjective Pt alert, lying in bed. Pt agrees to therapy. Pt is progressing with word finding and sequencing. Co-treat with PT ([id number]), skills of 2 clinicians required to decrease fall risk, work on progressing from dependent transfer, working on standing in //bars and R UE/LE positioning during mobility. PT focus ing on transfers, standing and LE placement while OT focusing on ADLs, functional mobility and UE placement. Mental Status/Objective Patient Orientation: Person, Place, Non-Verbal/Aphasic, Time, Situation Attachments: IV ADL-Treatment Mod A for supine to EOB. Max A to transfer to w/c from EOB. Max A x2 for toilet transfer and toileting. Set up for oral care sitting at sink. Therapy Code Descriptions/Definitions Functional [place] Measure: 0=Not Assessed/NA 4=Minimal Assistance 1=Total Assistance 5=Supervision or Setup 2=Maximal Assistance 6=Modified [place] 3=Moderate Assistance 7=Complete IndependenceSCALE: Activities may be completed with or without assistive devices. 2-Xtjarzoufe-ysvvmau completes the activity by him/herself with no assistance from a helper. 5-Set-up or Clean-up Assistance-helper sets up or cleans up; patient completes activity. [place] assists only prior to or following the activity. 4-Supervision or Touching Assistance-helper provides verbal cues and/or touching/steadying and/or contact guard assistance as patient completes activity. Assistance may be provided throughout the activity or intermittently. 3-Partial/Moderate Assistance-helper does LESS THAN HALF the effort. [place] lifts, holds or supports trunk or limbs, but provides less than half the effort. 2-Substantial/Maximal Assistance-helper does MORE THAN HALF the effort. [place] lifts or holds trunk or limbs and provides more than half the effort. 6-Awlsnqpaq-knaoge does ALL the effort. Patient does none of the effort to complete the activity. Or, the assistance of 2 or more helpers is required for the patient to complete the activity. If activity was not attempted, code reason: 7-Patient Refused. 9-Not Applicable-not attempted and the patient did not perform the activity before the current illness, exacerbation or injury. 10-Not Attempted due to Environmental Limitations-(lack of equipment, weather restraints, etc.). 88-Not Attempted due to Medical Conditions or Safety Concerns. Oral Hygiene (QC): 5 Toileting Hygiene (QC): 1 Toilet Transfer (QC): 1 Other Treatment Placement of L UE on w/c wheel to attempt to propel w/c, max A needed. Dependent with transfers. Pt has tendency to grasp surface being transferred to and push away instead of pulling towards, max A x2. Max A x2 for standing at parallel bars. After therapy, pt sitting in recliner with call light/phone in reach. All needs met in room. Safety measures in place. OT Short Term Goals Short Term Goals Time Frame: May 30, 2022 Oral hygiene: 4 Upper body dressin Lower body dressin Putting on/taking off footwear: 4 OT Automation Qtp Tester Goals Automation Qtp Tester Goals Time Frame: Jun 15, 2022 Acute change in mental status: 0 Inattention: 0 Disorganized thinkin Altered level of consciousness: 0 Eating (QC): 5 Oral Hygiene (QC): 5 Toileting Hygiene (QC): 6 Shower/Bathe Self (QC): 4 Upper Body Dressing (QC): 5 Lower Body Dressing (QC): 5 On/Off Footwear (QC): 5 Additional Goals: 1-Demonstrate ADL Tasks, 2-Verbalize Understanding, 3- ImproveStrength/Ha 1=Demonstrate adherence to instructed precautions during ADL tasks. 2=Patient will verbalize/demonstrate understanding of assistive devices/modifications for ADL. 3=Patient will improve strength/tolerance for activity to enable patient to perform ADL's. OT Education/Plan Problem List/Assessment Assessment: Decreased Activ Tolerance, Decreased Safety Aware, Decreased UE Strength, Dependent Transfers, Impaired Bed Mobility, Impaired Coordination, Impaired Funct Balance, Impaired Self-Care Skills, Restricted Funct UE ROM Discharge Recommendations Plan/Recommendations: Continue POC Treatment Plan/Plan of Care Patient would benefit from OT for education, treatment and training to promote independence in ADL's, mobility, safety and/or upper extremity function for ADL's. Plan of Care: ADL Retraining, Functional Mobility, Group Exercise/Act as Ind, UE Funct Exercise/Act, UE Neuromus Re-Ed/Coord, W/C Management Training Treatment Duration: Jun 15, 2022 Frequency: At least 5 of 7 days/Wk (IRF) Estimated Hrs Per Day: 1.5 hours per day Agreement: Yes Rehab Potential: Guarded Time Start Time: 08:00 Stop Time: 09:00 DATE: May 23, 2022 Total Time Billed (hr/min): 60 Billed Treatment Time 1 visit-ADL 2 (30 min) FA 2 (30 min) co-treat PT 60 min KRISTA KEE May 23, 2022 11:00
--- NOTE | 2022-05-23 11:39 | Physical Therapy Daily Note ---
PT Daily Note-Current Subjective Pt agreed to PT/OT co-treatment. Reports fatigue while standing and completing seated exercises. No report of pain pre-treatment. States that she needs to use the restroom for BM. Pain Section J - Health Conditions 1. Rarely or not at all 2. Occasionally 3. Frequently 4. Almost constantly 8. Unable to answer Pain Effect on Sleep: 1 Pain Interference with Therapy: 1 Pain Interference w/Day-to-Day: 1 Mental Status Patient Orientation: Person, Place, Time Transfers SCALE: Activities may be completed with or without assistive devices. 0-Pvejwqabhf-hnjrptg completes the activity by him/herself with no assistance from a helper. 5-Set-up or Clean-up Assistance-helper sets up or cleans up; patient completes activity. [place] assists only prior to or following the activity. 4-Supervision or Touching Assistance-helper provides verbal cues and/or touching/steadying and/or contact guard assistance as patient completes activ ity. Assistance may be provided throughout the activity or intermittently. 3-Partial/Moderate Assistance-helper does LESS THAN HALF the effort. [place] lifts, holds or supports trunk or limbs, but provides less than half the effort. 2-Substantial/Maximal Assistance-helper does MORE THAN HALF the effort. [place] lifts or holds trunk or limbs and provides more than half the effort. 0-Wsrvjkoxy-nianoz does ALL the effort. Patient does none of the effort to complete the activity. Or, the assistance of 2 or more helpers is required for the patient to complete the activity. If activity was not attempted, code reason: 7-Patient Refused. 9-Not Applicable-not attempted and the patient did not perform the activity before the current illness, exacerbation or injury. 10-Not Attempted due to Environmental Limitations-(lack of equipment, weather restraints, etc.). 88-Not Attempted due to Medical Conditions or Safety Concerns. Sit to Stand (QC): 3 Chair/Kww-gx-Mwvfn Xfer(QC): 3 Toilet Transfer (QC): 3 Pt MOD assist with all completed transfers. Required upright and steadying assist from PIPE LINE MAINTENANCE SUPERVISOR. Required VC/TCs for proper techniques to complete transfers. Gait Training Does the Patient Walk?: No and Walking Goal IS indicated Treatments Standing at parallel bars: 3 x 30 seconds. Seated exercise AAROM: ankle pumps, hip abd/add, LAQs x 10 each. Assessment Current Status: Good Progress Pt displays low endurance and strength throughout visit. Required short seated rest breaks. Requires VC/TCs and physical assistance from PT/OT to correct standing posture. Pt displays limited ROM while completing seated exercises likely due to muscle weakness. Continue to progress pt per POC to improve strength, endurance, and functional ability. PT Business Process Coordinator Goals Business Process Coordinator Goals PT Business Process Coordinator Goals Time Frame: May 30, 2022 Roll Left & Right (QC): 4 Sit to Lying (QC): 4 Lying-Sitting on Side/Bed(QC): 4 Sit to Stand (QC): 4 (CGA) Chair/Sgl-zx-Iamqc Xfer(QC): 4 (CGA) Toilet Transfer (QC): 4 (CGA) Car Transfer (QC): 4 (CGA) Does the Patient Walk: Yes Walk 10 feet (QC): 4 (CGA) Walk 50ft with 2 Turns (QC): 4 (CGA) Walk 150 ft (QC): 4 (CGA) Walking 10ft on Uneven Surface: 4 (CGA) 1 Step (curb) (QC): 3 (Ward) 4 Steps (QC): 3 (Ward) 12 Steps (QC): 88 Picking up an Object (QC): 4 (CGA using research tech) Wheel 50 feet with 2 turns (QC: 4 (SBA) Wheel 150 feet: 4 (SBA) PT Plan Treatment/Plan Treatment Plan: Continue Plan of Care Treatment Plan: Bed Mobility, Education, Functional Activity Ha, Functional Strength, Group Therapy, Gait, Safety, Therapeutic Exercise, Transfers Treatment Duration: May 30, 2022 Frequency: At least 5 of 7 days/Wk (IRF) Estimated Hrs Per Day: 1.5 hours per day Patient and/or Family Agrees t: Yes Time Time In: 0800 Time Out: 0900 DATE: May 23, 2022 Total Billed Treatment Time: 60 Total Billed Treatment 1 visit FA 3x EX 1x Total treatment time: 60 Co-treatment time: 60 FRIEDA WEINER PTA May 23, 2022 11:39
[2022-05-23 16:11] VITALS: BP 154/76
[2022-05-23] MEDS: ACETAMINOPHEN 325 MG TABLET PO PRN (22:48)
[2022-05-23 23:55] VITALS: BP 121/58
--- NOTE | 2022-05-24 05:45 | PM&R Progress Note ---
Subjective HPI/CC On Admission Date Seen by Provider: May 24, 2022 Time Seen by Provider: 12:00 Subjective/Events-last exam 05/24/2022: No major changes No pain reported No falls but dependent on transfers Sugars are stable 05/23/2022: Dependent on transfers No BP issues Sugars reviewed CVA is catastrophic 05/22/2022: Improved Family education and training provided No falls No pain Maintaining good participation 05/21/2022: No major issues Likely needs NHP Very flaccid since extension of the CVA No falls Change diet so aspiration less apt 05/20/2022: Flaccidity is profound Modified swallow today Dependent Needs NHP 05/19/2022: Flaccidity of right side is concerning NH placement could be required BP and BS stable Dependence 05/18/2022: No major events Will DC catheter tomorrow No pain reported No falls 05/17/2022: Settling in well Resting after therapy currently Denies pain BP improved Added insulin for elevated sugars HGA1C 9.3 Tely ordered for eval of cryptogenic CVA Review of Systems General: Fatigue, Malaise Objective Exam Vital Signs Vital Signs Date Time Temp Pulse Resp B/P (MAP) Pulse Ox O2 Delivery O2 Flow Rate FiO2 05/24/22 16:09 36.3 80 20 135/69 (91) 97 Room Air 05/23/22 21:30 2.00 Capillary Refill : General Appearance: No Apparent Distress, WD/WN, Chronically ill, Obese HEENT: PERRL/EOMI, Normal ENT Inspection, Pharynx Normal Neck: Full Range of Motion, Normal Inspection, Non Tender, Supple, Carotid Bruit Respiratory: Chest Non Tender, Lungs Clear, Normal Breath Sounds, No Accessory Muscle Use, No Respiratory Distress Cardiovascular: Regular Rate, Rhythm, No Edema, No Gallop, No JVD, No Murmur, Normal Peripheral Pulses Gastrointestinal: Normal Bowel Sounds, No Organomegaly, No Pulsatile Mass, Non Tender, Soft Back: Normal Inspection, No CVA Tenderness, No Vertebral Tenderness Extremity: Normal Capillary Refill, Normal Inspection, Normal Range of Motion, Non Tender, No Calf Tenderness, No Pedal Edema Neurologic/Psychiatric: Alert, Oriented x3, panel sewer II-XII Norm as Tested, Abnormal Gait, Depressed Affect, Facial Droop (right), Motor Weakness (right sided 1/5 upper and lower) Skin: Normal Color, Warm/Dry Lymphatic: No Adenopathy Results/Procedures Lab Patient resulted labs reviewed. FIM Transfers Therapy Code Descriptions/Definitions Functional Bertie Measure: 0=Not Assessed/NA 4=Minimal Assistance 1=Total Assistance 5=Supervision or Setup 2=Maximal Assistance 6=Modified Bertie 3=Moderate Assistance 7=Complete IndependenceSCALE: Activities may be completed with or without assistive devices. 5-Hkkpizorzr-rblfbpj completes the activity by him/herself with no assistance from a helper. 5-Set-up or Clean-up Assistance-helper sets up or cleans up; patient completes activity. Shelly assists only prior to or following the activity. 4-Supervision or Touching Assistance-helper provides verbal cues and/or touching/steadying and/or contact guard assistance as patient completes activity. Assistance may be provided throughout the activity or intermittently. 3-Partial/Moderate Assistance-helper does LESS THAN HALF the effort. Shelly lif ts, holds or supports trunk or limbs, but provides less than half the effort. 2-Substantial/Maximal Assistance-helper does MORE THAN HALF the effort. Shelly lifts or holds trunk or limbs and provides more than half the effort. 8-Cplotftrs-vxmywi does ALL the effort. Patient does none of the effort to complete the activity. Or, the assistance of 2 or more helpers is required for the patient to complete the activity. If activity was not attempted, code reason: 7-Patient Refused. 9-Not Applicable-not attempted and the patient did not perform the activity before the current illness, exacerbation or injury. 10-Not Attempted due to Environmental Limitations-(lack of equipment, weather restraints, etc.). 88-Not Attempted due to Medical Conditions or Safety Concerns. Roll Left to Right (QC): 3 Sit to Lying (QC): 3 Sit to Stand (QC): 3 Chair/Ukb-zt-Thczs Xfer(QC): 3 Car Transfer (QC): 88 Gait Training Does the Patient Walk?: No and Walking Goal IS indicated Walk 10 feet (QC): 2 Walk 50 ft with 2 Turns(QC): 88 Walk 150 ft (QC): 88 Walking 10ft/uneven surface-QC: 88 Gait Assistive Device: FWW Wheelchair Training Does the Pt Use a Wheelchair?: Yes Distance: 50' Wheel 50 ft with 2 turns (QC): 2 Wheel 150 ft (QC): 2 Type of Wheelchair: Manual Stair Training 1 Step (curb) (QC): 88 4 Steps (QC): 88 12 Steps (QC): 88 Balance Picking up an Object (QC): 88 ADL-Treatment Eating (QC): 4 Oral Hygiene (QC): 5 Shower/Bathe Self (QC): 2 Upper Body Dressing (QC): 2 Lower Body Dressing (QC): 1 On/Off Footwear (QC): 2 Toileting Hygiene (QC): 1 Toilet Transfer (QC): 1 Assessment/Plan Assessment and Plan Assess & Plan/Chief Complaint Assessment: CVA subacute not a tPa candidate Right sided weakness now progressed to flaccidity Dysarthria Dysphagia HTN urgency New DM HGA1C 9.5 Plan: Accuchecks PT OT MRI and carotid noted Supportive care 05/17/2022: DM education Tely Increase insulin and add Metformin 05/18/2022: DC catheter tomorrow 05/19/2022: NH placement? 05/20/2022: NHP 05/21/2022: Monitor closely Incontinence care 05/22/2022: Insulin adjustment 05/23/2022: Aggressive rehab 05/24/2022: Supportive care Monitor sugars (1) CVA (cerebral vascular accident) LUANNE MARIE DO May 24, 2022 05:45
[2022-05-24] MEDS: inSUlin ASPART (NovoLOG) 1 UNIT/0.01 ML (CHARGE PER UNIT) SC SCH ×7 (05:51→21:08)
[2022-05-24 07:30] VITALS: BP 155/79
[2022-05-24] MEDS: metFORMIN 500 MG (GLUCOPHAGE) TAB PO SCH (07:42)
[2022-05-24] MEDS: KCL 10 MEQ TAB (MICRO K) PO SCH (07:43)
[2022-05-24] MEDS: ASPIRIN 325 MG (5 GR) TABLET PO SCH (09:28)
[2022-05-24] MEDS: ENOXAPARIN 40 MG/0.4 ML (LOVENOX) SYR SC SCH (09:28)
[2022-05-24] MEDS: amLODIPine 10 MG (NORVASC) TAB PO SCH (09:28)
[2022-05-24] MEDS: DOCUSATE SODIUM 100 MG (COLACE) CAP PO SCH ×2 (09:29→21:09)
[2022-05-24] MEDS: LOSARTAN 50 MG (COZAAR) TAB PO SCH (09:29)
[2022-05-24] MEDS: polyethylene glycoL POWDER 17 GM (MIRALAX) PACK PO SCH ×2 (09:30→21:09)
[2022-05-24] MEDS: SENNA W/DOCUSATE (SENOKOT S) TABLET PO SCH ×2 (09:30→21:09)
[2022-05-24] MEDS ORDERED: ARTIFICAL TEARS 0.4 ML UNIT DOSE (REFRESH PLUS) OU PRN (10:00)
--- NOTE | 2022-05-24 12:33 | Physical Therapy Daily Note ---
PT Daily Note-Current Subjective Pt in bed upon arrival and agrees to PT says she has been waiting for PT to get there. Pain Section J - Health Conditions 1. Rarely or not at all 2. Occasionally 3. Frequently 4. Almost constantly 8. Unable to answer Pain Effect on Sleep: 1 Pain Interference with Therapy: 1 Pain Interference w/Day-to-Day: 1 Mental Status Patient Orientation: Confused Transfers SCALE: Activities may be completed with or without assistive devices. 6-Dqtpsawozn-llrlehw completes the activity by him/herself with no assistance from a helper. 5-Set-up or Clean-up Assistance-helper sets up or cleans up; patient completes activity. [place] assists only prior to or following the activity. 4-Supervision or Touching Assistance-helper provides verbal cues and/or touching/steadying and/or contact guard assistance as patient completes activity. Assistance may be provided throughout the activity or intermittently. 3-Partial/Moderate Assistance-helper does LESS THAN HALF the effort. [place] lifts, holds or supports trunk or limbs, but provides less than half the effort. 2-Substantial/Maximal Assistance-helper does MORE THAN HALF the effort. [place] lifts or holds trunk or limbs and provides more than half the effort. 6-Sxghkvqzz-askzms does ALL the effort. Patient does none of the effort to complete the activity. Or, the assistance of 2 or more helpers is required for the patient to complete the activity. If activity was not attempted, code reason: 7-Patient Refused. 9-Not Applicable-not attempted and the patient did not perform the activity before the current illness, exacerbation or injury. 10-Not Attempted due to Environmental Limitations-(lack of equipment, weather restraints, etc.). 88-Not Attempted due to Medical Conditions or Safety Concerns. Sit to Stand (QC): 2 Toilet Transfer (QC): 2 Gait Training Does the Patient Walk?: No and Walking Goal IS indicated Exercises Standing: Sit to Stand Standing Reps: 5 Treatments Pt in bed upon arrival and TFs from bed to WC. Pt wheels herself w/ Ward to therapy gym. Pt then able to stand at // bars x 3. Pt then wheeled back to room to use BR. TFs to toilet in BR. Pt dependent to clean herself and maxA to stand. Pt then wheeled back to bed. Pt TFs to recliner. All needs met and call light nearby. Assessment Current Status: Good Progress Pt maxA for all TFs and unable to follow verbal cues very well. Pt able to cloth winding supervisor // bars x3. Pt required verbal cues for hand and foot placement. PT Mcfp Goals Soda Dry House Operator Goals PT Soda Dry House Operator Goals Time Frame: May 30, 2022 Roll Left & Right (QC): 4 Sit to Lying (QC): 4 Lying-Sitting on Side/Bed(QC): 4 Sit to Stand (QC): 4 (CGA) Chair/Dxy-ic-Olwyu Xfer(QC): 4 (CGA) Toilet Transfer (QC): 4 (CGA) Car Transfer (QC): 4 (CGA) Does the Patient Walk: Yes Walk 10 feet (QC): 4 (CGA) Walk 50ft with 2 Turns (QC): 4 (CGA) Walk 150 ft (QC): 4 (CGA) Walking 10ft on Uneven Surface: 4 (CGA) 1 Step (curb) (QC): 3 (Ward) 4 Steps (QC): 3 (Ward) 12 Steps (QC): 88 Picking up an Object (QC): 4 (CGA using steam and gas turbines assembler) Wheel 50 feet with 2 turns (QC: 4 (SBA) Wheel 150 feet: 4 (SBA) PT Plan Problem List Problem List: Activity Tolerance, Functional Strength, Safety Treatment/Plan Treatment Plan: Continue Plan of Care Treatment Plan: Bed Mobility, Education, Functional Activity Ha, Functional Strength, Group Therapy, Gait, Safety, Therapeutic Exercise, Transfers Treatment Duration: May 30, 2022 Frequency: At least 5 of 7 days/Wk (IRF) Estimated Hrs Per Day: 1.5 hours per day Patient and/or Family Agrees t: Yes Safety Risks/Education Patient Education: Transfer Techniques, Correct Positioning, W/C Management Teaching Recipient: Patient Teaching Methods: Demonstration, Discussion Time Time In: 0830 Time Out: 0900 DATE: May 24, 2022 Total Billed Treatment Time: 30 Total Billed Treatment 1, FA x 2 JESSE WYATT PTA May 24, 2022 12:33
[2022-05-24 16:09] VITALS: BP 135/69
[2022-05-24 23:29] VITALS: BP 150/67
[2022-05-25] MEDS: inSUlin ASPART (NovoLOG) 1 UNIT/0.01 ML (CHARGE PER UNIT) SC SCH ×7 (05:03→20:36)
--- NOTE | 2022-05-25 05:47 | PM&R Progress Note ---
Subjective HPI/CC On Admission Date Seen by Provider: May 25, 2022 Time Seen by Provider: 08:30 Subjective/Events-last exam 05/25/2022: No major issues Fall risk continues Dependent on transfers 05/24/2022: No major changes No pain reported No falls but dependent on transfers Sugars are stable 05/23/2022: Dependent on transfers No BP issues Sugars reviewed CVA is catastrophic 05/22/2022: Improved Family education and training provided No falls No pain Maintaining good participation 05/21/2022: No major issues Likely needs NHP Very flaccid since extension of the CVA No falls Change diet so aspiration less apt 05/20/2022: Flaccidity is profound Modified swallow today Dependent Needs NHP 05/19/2022: Flaccidity of right side is concerning NH placement could be required BP and BS stable Dependence 05/18/2022: No major events Will DC catheter tomorrow No pain reported No falls 05/17/2022: Settling in well Resting after therapy currently Denies pain BP improved Added insulin for elevated sugars HGA1C 9.3 Tely ordered for eval of cryptogenic CVA Review of Systems General: Fatigue, Malaise Objective Exam Vital Signs Vital Signs Date Time Temp Pulse Resp B/P (MAP) Pulse Ox O2 Delivery O2 Flow Rate FiO2 05/25/22 15:39 36.8 78 18 155/74 (101) 96 Room Air 05/25/22 11:38 0.00 Capillary Refill : General Appearance: No Apparent Distress, WD/WN, Chronically ill, Obese HEENT: PERRL/EOMI, Normal ENT Inspection, Pharynx Normal Neck: Full Range of Motion, Normal Inspection, Non Tender, Supple, Carotid Bruit Respiratory: Chest Non Tender, Lungs Clear, Normal Breath Sounds, No Accessory Muscle Use, No Respiratory Distress Cardiovascular: Regular Rate, Rhythm, No Edema, No Gallop, No JVD, No Murmur, Normal Peripheral Pulses Gastrointestinal: Normal Bowel Sounds, No Organomegaly, No Pulsatile Mass, Non Tender, Soft Back: Normal Inspection, No CVA Tenderness, No Vertebral Tenderness Extremity: Normal Capillary Refill, Normal Inspection, Normal Range of Motion, Non Tender, No Calf Tenderness, No Pedal Edema Neurologic/Psychiatric: Alert, Oriented x3, cleaner II-XII Norm as Tested, Abnormal Gait, Depressed Affect, Facial Droop (right), Motor Weakness (right sided 1/5 upper and lower) Skin: Normal Color, Warm/Dry Lymphatic: No Adenopathy Results/Procedures Lab Patient resulted labs reviewed. FIM Transfers Therapy Code Descriptions/Definitions Functional Horace Measure: 0=Not Assessed/NA 4=Minimal Assistance 1=Total Assistance 5=Supervision or Setup 2=Maximal Assistance 6=Modified Horace 3=Moderate Assistance 7=Complete IndependenceSCALE: Activities may be completed with or without assistive devices. 0-Hlczeqiqos-idntork completes the activity by him/herself with no assistance from a helper. 5-Set-up or Clean-up Assistance-helper sets up or cleans up; patient completes activity. [place] assists only prior to or following the activity. 4-Supervision or Touching Assistance-helper provides verbal cues and/or touching/steadying and/or contact guard assistance as patient completes activity. Assistance may be provided throughout the activity or intermittently. 3-Partial/Moderate Assistance-helper does LESS THAN HALF the effort. [place] lifts, holds or supports trunk or limbs, but provides less than half the effort. 2-Substantial/Maximal Assistance-helper does MORE THAN HALF the effort. [place] lifts or holds trunk or limbs and provides more than half the effort. 5-Mxhqjjbqy-ayuavc does ALL the effort. Patient does none of the effort to complete the activity. Or, the assistance of 2 or more helpers is required for the patient to complete the activity. If activity was not attempted, code reason: 7-Patient Refused. 9-Not Applicable-not attempted and the patient did not perform the activity be fore the current illness, exacerbation or injury. 10-Not Attempted due to Environmental Limitations-(lack of equipment, weather restraints, etc.). 88-Not Attempted due to Medical Conditions or Safety Concerns. Roll Left to Right (QC): 3 Sit to Lying (QC): 3 Sit to Stand (QC): 2 Chair/Tkv-ks-Jllvg Xfer(QC): 3 Car Transfer (QC): 88 Gait Training Does the Patient Walk?: No and Walking Goal IS indicated Walk 10 feet (QC): 2 Walk 50 ft with 2 Turns(QC): 88 Walk 150 ft (QC): 88 Walking 10ft/uneven surface-QC: 88 Gait Assistive Device: FWW Wheelchair Training Does the Pt Use a Wheelchair?: Yes Distance: 50' Wheel 50 ft with 2 turns (QC): 2 Wheel 150 ft (QC): 2 Type of Wheelchair: Manual Stair Training 1 Step (curb) (QC): 88 4 Steps (QC): 88 12 Steps (QC): 88 Balance Picking up an Object (QC): 88 ADL-Treatment Eating (QC): 4 Oral Hygiene (QC): 5 Shower/Bathe Self (QC): 2 Upper Body Dressing (QC): 2 Lower Body Dressing (QC): 1 On/Off Footwear (QC): 2 Toileting Hygiene (QC): 1 Toilet Transfer (QC): 1 Assessment/Plan Assessment and Plan Assess & Plan/Chief Complaint Assessment: CVA subacute not a tPa candidate Right sided weakness now progressed to flaccidity Dysarthria Dysphagia HTN urgency New DM HGA1C 9.5 Plan: Accuchecks PT OT MRI and carotid noted Supportive care 05/17/2022: DM education Tely Increase insulin and add Metformin 05/18/2022: DC catheter tomorrow 05/19/2022: NH placement? 05/20/2022: NHP 05/21/2022: Monitor closely Incontinence care 05/22/2022: Insulin adjustment 05/23/2022: Aggressive rehab 05/24/2022: Supportive care Monitor sugars 05/25/2022: Monitor sugars (1) CVA (cerebral vascular accident) LUANNE MARIE DO May 25, 2022 05:47
[2022-05-25] MEDS: KCL 10 MEQ TAB (MICRO K) PO SCH (07:01)
[2022-05-25] MEDS: metFORMIN 500 MG (GLUCOPHAGE) TAB PO SCH (07:01)
[2022-05-25 07:30] VITALS: BP 151/76
[2022-05-25] MEDS: ASPIRIN 325 MG (5 GR) TABLET PO SCH (08:27)
[2022-05-25] MEDS: polyethylene glycoL POWDER 17 GM (MIRALAX) PACK PO SCH ×2 (08:27→21:05)
[2022-05-25] MEDS: amLODIPine 10 MG (NORVASC) TAB PO SCH (08:27)
[2022-05-25] MEDS: LOSARTAN 50 MG (COZAAR) TAB PO SCH (08:27)
[2022-05-25] MEDS: ENOXAPARIN 40 MG/0.4 ML (LOVENOX) SYR SC SCH (08:28)
[2022-05-25] MEDS: ACETAMINOPHEN 325 MG TABLET PO PRN (08:39)
[2022-05-25] MEDS: DOCUSATE SODIUM 100 MG (COLACE) CAP PO SCH ×2 (08:53→21:05)
[2022-05-25] MEDS: SENNA W/DOCUSATE (SENOKOT S) TABLET PO SCH ×2 (08:53→21:05)
[2022-05-25 15:39] VITALS: BP 155/74
[2022-05-25] MEDS: MELATONIN 3 MG TABLET PO PRN (21:10)
[2022-05-25 23:37] VITALS: BP 163/76
--- NOTE | 2022-05-26 05:30 | PM&R Progress Note ---
Subjective HPI/CC On Admission Date Seen by Provider: May 26, 2022 Time Seen by Provider: 10:00 Subjective/Events-last exam 05/26/2022: No major issues Updated on insulin regimen Dependent on transfers Needs NH 05/25/2022: No major issues Fall risk continues Dependent on transfers 05/24/2022: No major changes No pain reported No falls but dependent on transfers Sugars are stable 05/23/2022: Dependent on transfers No BP issues Sugars reviewed CVA is catastrophic 05/22/2022: Improved Family education and training provided No falls No pain Maintaining good participation 05/21/2022: No major issues Likely needs NHP Very flaccid since extension of the CVA No falls Change diet so aspiration less apt 05/20/2022: Flaccidity is profound Modified swallow today Dependent Needs NHP 05/19/2022: Flaccidity of right side is concerning NH placement could be required BP and BS stable Dependence 05/18/2022: No major events Will DC catheter tomorrow No pain reported No falls 05/17/2022: Settling in well Resting after therapy currently Denies pain BP improved Added insulin for elevated sugars HGA1C 9.3 Tely ordered for eval of cryptogenic CVA Review of Systems General: Fatigue, Malaise Objective Exam Vital Signs Vital Signs Date Time Temp Pulse Resp B/P (MAP) Pulse Ox O2 Delivery O2 Flow Rate FiO2 05/27/22 00:43 36.4 73 18 145/66 (92) 93 Room Air 05/25/22 11:38 0.00 Capillary Refill : General Appearance: No Apparent Distress, WD/WN, Chronically ill, Obese HEENT: PERRL/EOMI, Normal ENT Inspection, Pharynx Normal Neck: Full Range of Motion, Normal Inspection, Non Tender, Supple, Carotid Bruit Respiratory: Chest Non Tender, Lungs Clear, Normal Breath Sounds, No Accessory Muscle Use, No Respiratory Distress Cardiovascular: Regular Rate, Rhythm, No Edema, No Gallop, No JVD, No Murmur, Normal Peripheral Pulses Gastrointestinal: Normal Bowel Sounds, No Organomegaly, No Pulsatile Mass, Non Tender, Soft Back: Normal Inspection, No CVA Tenderness, No Vertebral Tenderness Extremity: Normal Capillary Refill, Normal Inspection, Normal Range of Motion, Non Tender, No Calf Tenderness, No Pedal Edema Neurologic/Psychiatric: Alert, Oriented x3, 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 FIM Transfers Therapy Code Descriptions/Definitions Functional [place] Measure: 0=Not Assessed/NA 4=Minimal Assistance 1=Total Assistance 5=Supervision or Setup 2=Maximal Assistance 6=Modified [place] 3=Moderate Assistance 7=Complete IndependenceSCALE: Activities may be completed with or without assistive devices. 4-Sehlzqgqzj-kyoqany completes the activity by him/herself with no assistance from a helper. 5-Set-up or Clean-up Assistance-helper sets up or cleans up; patient completes activity. [place] assists only prior to or following the activity. 4-Supervision or Touching Assistance-helper provides verbal cues and/or touching/steadying and/or contact guard assistance as patient completes activity. Assistance may be provided throughout the activity or intermittently. 3-Partial/Moderate Assistance-helper does LESS THAN HALF the effort. [place] lifts, holds or supports trunk or limbs, but provides less than half the effort. 2-Substantial/Maximal Assistance-helper does MORE THAN HALF the effort. [place] lifts or holds trunk or limbs and provides more than half the effort. 6-Bwadtzqyq-ykyidf does ALL the effort. Patient does none of the effort to complete the activity. Or, the assistance of 2 or more helpers is required for the patient to complete the activity. If activity was not attempted, code reason: 7-Patient Refused. 9-Not Applicable-not attempted and the patient did not perform the activity before the current illness, exacerbation or injury. 10-Not Attempted due to Environmental Limitations-(lack of equipment, weather restraints, etc.). 88-Not Attempted due to Medical Conditions or Safety Concerns. Roll Left to Right (QC): 3 Sit to Lying (QC): 3 Sit to Stand (QC): 2 Chair/Jez-ls-Xfseu Xfer(QC): 3 Car Transfer (QC): 88 Gait Training Does the Patient Walk?: No and Walking Goal IS indicated Walk 10 feet (QC): 2 Walk 50 ft with 2 Turns(QC): 88 Walk 150 ft (QC): 88 Walking 10ft/uneven surface-QC: 88 Gait Assistive Device: FWW Wheelchair Training Does the Pt Use a Wheelchair?: Yes Distance: 50' Wheel 50 ft with 2 turns (QC): 2 Wheel 150 ft (QC): 2 Type of Wheelchair: Manual Stair Training 1 Step (curb) (QC): 88 4 Steps (QC): 88 12 Steps (QC): 88 Balance Picking up an Object (QC): 88 ADL-Treatment Eating (QC): 4 Oral Hygiene (QC): 5 Shower/Bathe Self (QC): 2 Upper Body Dressing (QC): 2 Lower Body Dressing (QC): 1 On/Off Footwear (QC): 2 Toileting Hygiene (QC): 1 Toilet Transfer (QC): 1 Assessment/Plan Assessment and Plan Assess & Plan/Chief Complaint Assessment: CVA subacute not a tPa candidate Right sided weakness now progressed to flaccidity Dysarthria Dysphagia HTN urgency New DM HGA1C 9.5 Plan: Accuchecks PT OT MRI and carotid noted Supportive care 05/17/2022: DM education Tely Increase insulin and add Metformin 05/18/2022: DC catheter tomorrow 05/19/2022: NH placement? 05/20/2022: NHP 05/21/2022: Monitor closely Incontinence care 05/22/2022: Insulin adjustment 05/23/2022: Aggressive rehab 05/24/2022: Supportive care Monitor sugars 05/25/2022: Monitor sugars 05/26/2022: DM management (1) CVA (cerebral vascular accident) LUANNE MARIE DO May 26, 2022 05:30
[2022-05-26 05:46] LABS: BASOPHILS # (AUTO) 0.1 10^3/uL (0.0-0.1); BASOPHILS % (AUTO) 1 % (0-10); EOSINOPHILS # (AUTO) 0.2 10^3/uL (0.0-0.3); EOSINOPHILS % (AUTO) 2 % (0-10); HEMATOCRIT 38 % (35-52); HEMOGLOBIN 12.9 g/dL (11.5-16.0); LYMPHOCYTES % (AUTO) 31 % (12-44); MEAN CORPUSCULAR HEMOGLOBIN 31 pg (25-34); MEAN CORPUSCULAR HGB CONC 34 g/dL (32-36); MEAN CORPUSCULAR VOLUME 92 fL (80-99); MEAN PLATELET VOLUME 9.1 fL (9.0-12.2); MONOCYTES # (AUTO) 0.7 10^3/uL (0.0-1.0); MONOCYTES % (AUTO) 7 % (0-12); NEUTROPHILS # (AUTO) 5.9 10^3/uL (1.8-7.8); NEUTROPHILS % (AUTO) 60 % (42-75); PLATELET COUNT 298 10^3/uL (130-400); WHITE BLOOD COUNT 9.8 10^3/uL (4.3-11.0)
[2022-05-26 06:05] LABS: ALBUMIN 3.2 GM/DL (3.2-4.5)
[2022-05-26 06:07] LABS: CALCIUM 9.2 MG/DL (8.5-10.1)
[2022-05-26 06:10] LABS: BILIRUBIN,TOTAL 0.5 MG/DL (0.1-1.0)
[2022-05-26 06:12] LABS: CREATININE SERUM 0.76 MG/DL (0.60-1.30)
[2022-05-26] MEDS: inSUlin ASPART (NovoLOG) 1 UNIT/0.01 ML (CHARGE PER UNIT) SC SCH ×7 (06:17→20:17)
[2022-05-26] MEDS: metFORMIN 500 MG (GLUCOPHAGE) TAB PO SCH (06:50)
[2022-05-26] MEDS: KCL 10 MEQ TAB (MICRO K) PO SCH (06:50)
[2022-05-26 08:00] VITALS: BP 136/63
[2022-05-26] MEDS: ASPIRIN 325 MG (5 GR) TABLET PO SCH (09:07)
[2022-05-26] MEDS: ENOXAPARIN 40 MG/0.4 ML (LOVENOX) SYR SC SCH (09:07)
[2022-05-26] MEDS: amLODIPine 10 MG (NORVASC) TAB PO SCH (09:07)
[2022-05-26] MEDS: LOSARTAN 50 MG (COZAAR) TAB PO SCH (09:07)
[2022-05-26] MEDS: polyethylene glycoL POWDER 17 GM (MIRALAX) PACK PO SCH ×2 (09:08→20:03)
[2022-05-26] MEDS: DOCUSATE SODIUM 100 MG (COLACE) CAP PO SCH ×2 (09:08→20:03)
[2022-05-26] MEDS: SENNA W/DOCUSATE (SENOKOT S) TABLET PO SCH ×2 (09:08→20:03)
--- NOTE | 2022-05-26 10:01 | Physical Therapy Daily Note ---
PT Daily Note-Current Pain Section J - Health Conditions 1. Rarely or not at all 2. Occasionally 3. Frequently 4. Almost constantly 8. Unable to answer Pain Effect on Sleep: 1 Pain Interference with Therapy: 1 Pain Interference w/Day-to-Day: 1 Transfers SCALE: Activities may be completed with or without assistive devices. 5-Wlgazcmelb-lrgvmba completes the activity by him/herself with no assistance from a helper. 5-Set-up or Clean-up Assistance-helper sets up or cleans up; patient completes activity. [place] assists only prior to or following the activity. 4-Supervision or Touching Assistance-helper provides verbal cues and/or touching/steadying and/or contact guard assistance as patient completes activity. Assistance may be provided throughout the activity or intermittently. 3-Partial/Moderate Assistance-helper does LESS THAN HALF the effort. [place] lifts, holds or supports trunk or limbs, but provides less than half the effort. 2-Substantial/Maximal Assistance-helper does MORE THAN HALF the effort. [place] lifts or holds trunk or limbs and provides more than half the effort. 5-Lrjhdkmmd-comzfu does ALL the effort. Patient does none of the effort to complete the activity. Or, the assistance of 2 or more helpers is required for the patient to complete the activity. If activity was not attempted, code reason: 7-Patient Refused. 9-Not Applicable-not attempted and the patient did not perform the activity before the current illness, exacerbation or injury. 10-Not Attempted due to Environmental Limitations-(lack of equipment, weather restraints, etc.). 88-Not Attempted due to Medical Conditions or Safety Concerns. PT System Administration Manager Goals Care Home Goals PT Care Home Goals Time Frame: May 30, 2022 Roll Left & Right (QC): 4 Sit to Lying (QC): 4 Lying-Sitting on Side/Bed(QC): 4 Sit to Stand (QC): 4 (CGA) Chair/Tbx-ch-Hkzai Xfer(QC): 4 (CGA) Toilet Transfer (QC): 4 (CGA) Car Transfer (QC): 4 (CGA) Does the Patient Walk: Yes Walk 10 feet (QC): 4 (CGA) Walk 50ft with 2 Turns (QC): 4 (CGA) Walk 150 ft (QC): 4 (CGA) Walking 10ft on Uneven Surface: 4 (CGA) 1 Step (curb) (QC): 3 (Ward) 4 Steps (QC): 3 (Ward) 12 Steps (QC): 88 Picking up an Object (QC): 4 (CGA using sales development executive) Wheel 50 feet with 2 turns (QC: 4 (SBA) Wheel 150 feet: 4 (SBA) PT Plan Treatment/Plan Treatment Plan: Bed Mobility, Education, Functional Activity Ha, Functional Strength, Group Therapy, Gait, Safety, Therapeutic Exercise, Transfers Treatment Duration: May 30, 2022 Frequency: At least 5 of 7 days/Wk (IRF) Estimated Hrs Per Day: 1.5 hours per day Patient and/or Family Agrees t: Yes QUINCY SINGH PT May 26, 2022 10:01
--- NOTE | 2022-05-26 10:47 | Speech Therapy Daily Note ---
Speech Daily Progress Note Subjective Date Seen by Provider: May 26, 2022 Time Seen by Provider: 09:00 The patient was seated upright in her recliner, awake and alert, upon entrance to her room by the clinician. The patient greeted the clinician appropriately and was agreeable to participation in the language, speech, and dysphagia treatment session. Objective The patient denied overt s/s of suspected aspiration throughout her most recent P.O. intake. The clinician reviewed and discussed safe swallowing precautions with the patient, who verbalized comprehension of the discussed material. The patient consumed crushed medications in puree (RN administered) and mildly thick liquids via nosey cup. The clinician provided one verbal prompt to perform chin tuck maneuver. Overt s/s of suspected aspiration were not displayed. Oral motor exercises were reviewed and continued on this date. The patient continues to display limited range of motion of the right labial and lower right facial musculature. The patient does display high accuracy of the oral motor exercises with direct modeling provided. The patient's language continues to improve, with a reduction in word-finding pauses and halts present. With additional time, the patient is able to complete structured conversational exchanges with high accuracy and increased utterance length. Assessment Assessment Current Status: Good Progress Treatment Plan Continue Plan of Care Speech Short Term Goals Short Term Goals Short Term Goals 1. The patient will complete oral motor exercises with 80% accuracy, independently. 2. The patient will complete word-finding exercises with 50% accuracy with moderate clinician verbal cueing. Time Frame-STG: Two Weeks. Speech Pipelines Supervisor Goals Usp Goals 1. The patient will improve cognitive linguistic skills for safe discharge to the least restrictive environment. Time Frame: Three Weeks. Speech-Plan Treatment Plan Speech Therapy Treatment Plan: Continue Plan of Care Treatment Duration: Jun 06, 2022 Frequency: Modified Program (IRF) Estimated Hrs Per Day: Other Rehab Potential: Guarded Safety Risks/Education Teaching Recipient: Patient Teaching Methods: Discussion Response to Teaching: Reinforcement Needed Education Topics Provided: Safe Swallowing Strategies, Word-Finding Strategies Time Speech Therapy Time In: 09:00 Speech Therapy Time Out: 09:30 DATE: May 26, 2022 Total Billed Time: 30 Billed Treatment Time ANDREI SortoMARIAJOSEYPEDRO May 26, 2022 10:47
--- NOTE | 2022-05-26 12:43 | Physical Therapy Daily Note ---
PT Daily Note-Current Subjective Patient happy to see therapists this a.m. Willing to participate in PT/OT co- treatment. Pain Comment: Intermittent pain in (R) hand/shoulder during therapy activities. Section J - Health Conditions 1. Rarely or not at all 2. Occasionally 3. Frequently 4. Almost constantly 8. Unable to answer Pain Effect on Sleep: 1 Pain Interference with Therapy: 1 Pain Interference w/Day-to-Day: 1 Appearance Patient had pocketed food in mouth at initiation of session - trying to clear with finger sweep. Transfers SCALE: Activities may be completed with or without assistive devices. 1-Nxsqtgdinb-tmrstmt completes the activity by him/herself with no assistance from a helper. 5-Set-up or Clean-up Assistance-helper sets up or cleans up; patient completes activity. [place] assists only prior to or following the activity. 4-Supervision or Touching Assistance-helper provides verbal cues and/or touching/steadying and/or contact guard assistance as patient completes activity. Assistance may be provided throughout the activity or intermittently. 3-Partial/Moderate Assistance-helper does LESS THAN HALF the effort. [place] lifts, holds or supports trunk or limbs, but provides less than half the effort. 2-Substantial/Maximal Assistance-helper does MORE THAN HALF the effort. [place] lifts or holds trunk or limbs and provides more than half the effort. 3-Uplzpiyzi-rwvbce does ALL the effort. Patient does none of the effort to complete the activity. Or, the assistance of 2 or more helpers is required for the patient to complete the activity. If activity was not attempted, code reason: 7-Patient Refused. 9-Not Applicable-not attempted and the patient did not perform the activity before the current illness, exacerbation or injury. 10-Not Attempted due to Environmental Limitations-(lack of equipment, weather restraints, etc.). 88-Not Attempted due to Medical Conditions or Safety Concerns. Lying to Sitting/Side of Bed(Q: 3 (Patient able to bring legs to edge of bed with v.c., then required mod (A) to bring trunk to upright position to sit. ) Sit to Stand (QC): 1 (Max (A) of 2 for sit>stand x 2 in // bars, 3rd person to ensure (R) knee does not buckle. Weight shifting (R)/(L) in // bars max (A) x 2. Patient unable to move (R) LE in standing, unable to lift (L) foot in standing.) Chair/Akb-pu-Rbncn Xfer(QC): 1 (Max (A) of 2 for swing pivot and stand pivot transfers bed>w/c, W/C<>mat, w/c>recliner.) Gait Training Does the Patient Walk?: No and Walking Goal NOT indicated Assessment Patient continues with severe functional mobility limitations following extensio n of CVA /p admission to this unit. Patient requires extensive assist that it is unlikely that the patient's can provide by himself in the home as patient is required assist of 2 skilled staff members at this time for patient safety. SNF is appropriate D/C setting at this timee PT Correction Goals Curing Oven Tender Goals PT Curing Oven Tender Goals Time Frame: May 30, 2022 Roll Left & Right (QC): 4 Sit to Lying (QC): 4 Lying-Sitting on Side/Bed(QC): 4 Sit to Stand (QC): 2 Chair/Uop-wr-Cqtwh Xfer(QC): 2 Toilet Transfer (QC): 2 Car Transfer (QC): 2 Does the Patient Walk: No and Walking Goal NOT indicated Walk 10 feet (QC): 88 Walk 50ft with 2 Turns (QC): 88 Walk 150 ft (QC): 88 Walking 10ft on Uneven Surface: 88 1 Step (curb) (QC): 88 4 Steps (QC): 88 12 Steps (QC): 88 Picking up an Object (QC): 88 Wheel 50 feet with 2 turns (QC: 4 (SBA) Wheel 150 feet: 4 (SBA) Based on patient's current status and patient's CVA extending following admission to this unit, the goals that were initially documented for transfers/walking are no longer realistic. Goals adjusted accordingly this date. PT Plan Treatment/Plan Treatment Plan: Continue Plan of Care Treatment Plan: Bed Mobility, Education, Functional Activity Ha, Functional Strength, Group Therapy, Gait, Safety, Therapeutic Exercise, Transfers Treatment Duration: May 30, 2022 Frequency: At least 5 of 7 days/Wk (IRF) Estimated Hrs Per Day: 1.5 hours per day Patient and/or Family Agrees t: Yes Time Time In: 800 () Time Out: 900 DATE: May 26, 2022 Total Billed Treatment Time: 60 Total Billed Treatment 20 W/C, 15 Ex, 25 FA = 60' Co-rx. Co-treatment indicated due to severity of patient's functional mobility deficits and high acuity which requires 2 skilled therapy staff to ensure patient safety with mobility/upright exercise at this time. Lindsay Limon PT May 26, 2022 12:43
--- NOTE | 2022-05-26 12:45 | Occupational Ther Daily Note ---
OT Current Status-Daily Note Subjective Pt alert, lying in bed. Pt agrees to therapy. No c/o pain beginning of session. PT/OT cotreat ([id number]), skills of 2 clinicians required to decrease fall risk, increase overall mobility, increase ROM/muscle tone of R UE/LE for daily functional tasks. PT focusing on R LE, mobility and transfers while OT f ocusing on R UE, functional mobility and transfers. Mental Status/Objective Patient Orientation: Person, Place, Non-Verbal/Aphasic, Situation ADL-Treatment Therapy Code Descriptions/Definitions Functional [place] Measure: 0=Not Assessed/NA 4=Minimal Assistance 1=Total Assistance 5=Supervision or Setup 2=Maximal Assistance 6=Modified [place] 3=Moderate Assistance 7=Complete IndependenceSCALE: Activities may be completed with or without assistive devices. 3-Hgyghebzbm-rvzhziw completes the activity by him/herself with no assistance from a helper. 5-Set-up or Clean-up Assistance-helper sets up or cleans up; patient completes activity. [place] assists only prior to or following the activity. 4-Supervision or Touching Assistance-helper provides verbal cues and/or touching/steadying and/or contact guard assistance as patient completes activity. Assistance may be provided throughout the activity or intermittently. 3-Partial/Moderate Assistance-helper does LESS THAN HALF the effort. [place] lifts, holds or supports trunk or limbs, but provides less than half the effort. 2-Substantial/Maximal Assistance-helper does MORE THAN HALF the effort. [place] lifts or holds trunk or limbs and provides more than half the effort. 2-Jlmgvqpaf-miiief does ALL the effort. Patient does none of the effort to complete the activity. Or, the assistance of 2 or more helpers is required for the patient to complete the activity. If activity was not attempted, code reason: 7-Patient Refused. 9-Not Applicable-not attempted and the patient did not perform the activity before the current illness, exacerbation or injury. 10-Not Attempted due to Environmental Limitations-(lack of equipment, weather restraints, etc.). 88-Not Attempted due to Medical Conditions or Safety Concerns. Other Treatment Assist x2 for bed mobility and transfers. Notable subluxation of R shldr, R shldr sling applied when standing. Pt stood 2x's at parallel bars with assist x3. Pt then working on sitting balance and core strengthening on mat table. Pt able to complete core strengthening with min A. R UE wt bearing in sitting required full stabilization of R UE, no scapular movement noted with PROM. After session, pt sitting in recliner with call light/phone in reach. All needs met in room. OT Short Term Goals Short Term Goals Time Frame: May 30, 2022 Oral hygiene: 4 Upper body dressin Lower body dressin Putting on/taking off footwear: 4 OT Flooring Sales Manager Goals Custodial Goals Time Frame: Jun 15, 2022 Acute change in mental status: 0 Inattention: 0 Disorganized thinkin Altered level of consciousness: 0 Eating (QC): 5 Oral Hygiene (QC): 5 Toileting Hygiene (QC): 6 Shower/Bathe Self (QC): 4 Upper Body Dressing (QC): 5 Lower Body Dressing (QC): 5 On/Off Footwear (QC): 5 Additional Goals: 1-Demonstrate ADL Tasks, 2-Verbalize Understanding, 3- ImproveStrength/Ha 1=Demonstrate adherence to instructed precautions during ADL tasks. 2=Patient will verbalize/demonstrate understanding of assistive devices/modifications for ADL. 3=Patient will improve strength/tolerance for activity to enable patient to perform ADL's. OT Education/Plan Problem List/Assessment Assessment: Decreased Activ Tolerance, Decreased UE Strength, Dependent Transfers, Impaired Bed Mobility, Impaired Coordination, Impaired Funct Balance, Impaired Self-Care Skills, Restricted Funct UE ROM Discharge Recommendations Plan/Recommendations: Continue POC Treatment Plan/Plan of Care Patient would benefit from OT for education, treatment and training to promote independence in ADL's, mobility, safety and/or upper extremity function for ADL's. Plan of Care: ADL Retraining, Functional Mobility, Group Exercise/Act as Ind, UE Funct Exercise/Act, UE Neuromus Re-Ed/Coord, W/C Management Training Treatment Duration: Jun 15, 2022 Frequency: At least 5 of 7 days/Wk (IRF) Estimated Hrs Per Day: 1.5 hours per day Agreement: Yes Rehab Potential: Guarded Time Start Time: 08:00 Stop Time: 09:00 DATE: May 26, 2022 Total Time Billed (hr/min): 60 Billed Treatment Time 1 visit-NM 4 (60 min) co-treat with PT [id number] KRISTA KEE 27, 2023 12:45
--- NOTE | 2022-05-26 12:46 | Occupational Ther Daily Note ---
OT Current Status-Daily Note Subjective Pt alert, sitting in recliner. Just finished up lunch. No c/o pain. Mental Status/Objective Patient Orientation: Person, Place, Non-Verbal/Aphasic, Time, Situation ADL-Treatment Pt completed oral care and grooming sitting in recliner. After supplies ga thered, pt able to complete independently. After session, pt sitting in recliner with call light/phone in reach. All needs met in room. Therapy Code Descriptions/Definitions Functional [place] Measure: 0=Not Assessed/NA 4=Minimal Assistance 1=Total Assistance 5=Supervision or Setup 2=Maximal Assistance 6=Modified [place] 3=Moderate Assistance 7=Complete IndependenceSCALE: Activities may be completed with or without assistive devices. 0-Otzjxieaqk-fkiyhwg completes the activity by him/herself with no assistance from a helper. 5-Set-up or Clean-up Assistance-helper sets up or cleans up; patient completes activity. [place] assists only prior to or following the activity. 4-Supervision or Touching Assistance-helper provides verbal cues and/or touching/steadying and/or contact guard assistance as patient completes activity. Assistance may be provided throughout the activity or intermittently. 3-Partial/Moderate Assistance-helper does LESS THAN HALF the effort. [place] lifts, holds or supports trunk or limbs, but provides less than half the effort. 2-Substantial/Maximal Assistance-helper does MORE THAN HALF the effort. [place] lifts or holds trunk or limbs and provides more than half the effort. 3-Mcnlznbjz-nmtvhv does ALL the effort. Patient does none of the effort to co mplete the activity. Or, the assistance of 2 or more helpers is required for the patient to complete the activity. If activity was not attempted, code reason: 7-Patient Refused. 9-Not Applicable-not attempted and the patient did not perform the activity before the current illness, exacerbation or injury. 10-Not Attempted due to Environmental Limitations-(lack of equipment, weather restraints, etc.). 88-Not Attempted due to Medical Conditions or Safety Concerns. Oral Hygiene (QC): 5 OT Short Term Goals Short Term Goals Time Frame: May 30, 2022 Oral hygiene: 4 Upper body dressin Lower body dressin Putting on/taking off footwear: 4 OT [facility] Goals [place] Goals Time Frame: Jun 15, 2022 Acute change in mental status: 0 Inattention: 0 Disorganized thinkin Altered level of consciousness: 0 Eating (QC): 5 Oral Hygiene (QC): 5 Toileting Hygiene (QC): 6 Shower/Bathe Self (QC): 4 Upper Body Dressing (QC): 5 Lower Body Dressing (QC): 5 On/Off Footwear (QC): 5 Additional Goals: 1-Demonstrate ADL Tasks, 2-Verbalize Understanding, 3-ImproveStrength/Ha 1=Demonstrate adherence to instructed precautions during ADL tasks. 2=Patient will verbalize/demonstrate understanding of assistive devices/modifications for ADL. 3=Patient will improve strength/tolerance for activity to enable patient to perform ADL's. OT Education/Plan Problem List/Assessment Assessment: Impaired Self-Care Skills Discharge Recommendations Plan/Recommendations: Continue POC Treatment Plan/Plan of Care Patient would benefit from OT for education, treatment and training to promote independence in ADL's, mobility, safety and/or upper extremity function for ADL's. Plan of Care: ADL Retraining, Functional Mobility, Group Exercise/Act as Ind, UE Funct Exercise/Act, UE Neuromus Re-Ed/Coord, W/C Management Training Treatment Duration: Jun 15, 2022 Frequency: At least 5 of 7 days/Wk (IRF) Estimated Hrs Per Day: 1.5 hours per day Agreement: Yes Rehab Potential: Guarded Time Start Time: 12:15 Stop Time: 12:30 DATE: May 26, 2022 Total Time Billed (hr/min): 15 Billed Treatment Time 1 visit-ADL 1 (15 min) KRISTA KEE May 26, 2022 12:46
--- NOTE | 2022-05-26 14:41 | Physical Therapy Daily Note ---
PT Daily Note-Current Subjective No new c/o. Speech is slightly more clear and is able to find words with less effort this pm Pain Section J - Health Conditions 1. Rarely or not at all 2. Occasionally 3. Frequently 4. Almost constantly 8. Unable to answer Pain Effect on Sleep: 1 Pain Interference with Therapy: 1 Pain Interference w/Day-to-Day: 1 Transfers SCALE: Activities may be completed with or without assistive devices. 1-Azwxxrslle-hbqohja completes the activity by him/herself with no assistance from a helper. 5-Set-up or Clean-up Assistance-helper sets up or cleans up; patient completes activity. [place] assists only prior to or following the activity. 4-Supervision or Touching Assistance-helper provides verbal cues and/or touching/steadying and/or contact guard assistance as patient completes activity. Assistance may be provided throughout the activity or intermittently. 3-Partial/Moderate Assistance-helper does LESS THAN HALF the effort. [place] lifts, holds or supports trunk or limbs, but provides less than half the effort. 2-Substantial/Maximal Assistance-helper does MORE THAN HALF the effort. [place] lifts or holds trunk or limbs and provides more than half the effort. 1-Xgzyrldkz-xvyfin does ALL the effort. Patient does none of the effort to complete the activity. Or, the assistance of 2 or more helpers is required for the patient to complete the activity. If activity was not attempted, code reason: 7-Patient Refused. 9-Not Applicable-not attempted and the patient did not perform the activity before the current illness, exacerbation or injury. 10-Not Attempted due to Environmental Limitations-(lack of equipment, weather restraints, etc.). 88-Not Attempted due to Medical Conditions or Safety Concerns. Treatments LE ex in recliner: 1 x 15 reps AP with AAROM for full DF (R) and PF into Resistance (B) 1 x 15 (B) hip ER/IR with legs extended 1 x 15 hip abd/add (R) with AAROM for full ext 1 x 15 LAQ (R) with AAROM for full ext 1 x 15 AAROM hip flexion (B) x 10 1 x :15 toe taps,heel raises x 15 with v.c./v.c. PT Civil Estimator Goals Fpc Goals PT Fpc Goals Time Frame: May 30, 2022 Roll Left & Right (QC): 4 Sit to Lying (QC): 4 Lying-Sitting on Side/Bed(QC): 4 Sit to Stand (QC): 2 Chair/Djr-lc-Rwjqc Xfer(QC): 2 Toilet Transfer (QC): 2 Car Transfer (QC): 2 Does the Patient Walk: No and Walking Goal NOT indicated Walk 10 feet (QC): 88 Walk 50ft with 2 Turns (QC): 88 Walk 150 ft (QC): 88 Walking 10ft on Uneven Surface: 88 1 Step (curb) (QC): 88 4 Steps (QC): 88 12 Steps (QC): 88 Picking up an Object (QC): 88 Wheel 50 feet with 2 turns (QC: 4 (SBA) Wheel 150 feet: 4 (SBA) PT Plan Treatment/Plan Treatment Plan: Continue Plan of Care Treatment Plan: Bed Mobility, Education, Functional Activity Ha, Functional Strength, Group Therapy, Gait, Safety, Therapeutic Exercise, Transfers Treatment Duration: May 30, 2022 Frequency: At least 5 of 7 days/Wk (IRF) Estimated Hrs Per Day: 1.5 hours per day Patient and/or Family Agrees t: Yes Time Time In: 1415 Time Out: 1430 DATE: May 26, 2022 Total Billed Treatment Time: 15 Total Billed Treatment Ex - 15' Lindsay Limon PT May 26, 2022 14:41
[2022-05-26 15:49] VITALS: BP 144/76
[2022-05-26] MEDS: ACETAMINOPHEN 325 MG TABLET PO PRN (19:00)
[2022-05-26] MEDS: CALCIUM CARBONATE 500 MG (TUMS) TAB.CHEW PO PRN (20:27)
[2022-05-27 00:43] VITALS: BP 145/66
[2022-05-27] MEDS: inSUlin ASPART (NovoLOG) 1 UNIT/0.01 ML (CHARGE PER UNIT) SC SCH ×7 (06:26→20:30)
[2022-05-27] MEDS: metFORMIN 500 MG (GLUCOPHAGE) TAB PO SCH (06:27)
[2022-05-27] MEDS: KCL 10 MEQ TAB (MICRO K) PO SCH (06:27)
--- NOTE | 2022-05-27 06:48 | PM&R Progress Note ---
Subjective HPI/CC On Admission Date Seen by Provider: May 27, 2022 Time Seen by Provider: 09:00 Subjective/Events-last exam 05/27/2022: DC to [facility] tomorrow Monitoring sugars 05/26/2022: No major issues Updated on insulin regimen Dependent on transfers Needs NH 05/25/2022: No major issues Fall risk continues Dependent on transfers 05/24/2022: No major changes No pain reported No falls but dependent on transfers Sugars are stable 05/23/2022: Dependent on transfers No BP issues Sugars reviewed CVA is catastrophic 05/22/2022: Improved Family education and training provided No falls No pain Maintaining good participation 05/21/2022: No major issues Likely needs NHP Very flaccid since extension of the CVA No falls Change diet so aspiration less apt 05/20/2022: Flaccidity is profound Modified swallow today Dependent Needs NHP 05/19/2022: Flaccidity of right side is concerning NH placement could be required BP and BS stable Dependence 05/18/2022: No major events Will DC catheter tomorrow No pain reported No falls 05/17/2022: Settling in well Resting after therapy currently Denies pain BP improved Added insulin for elevated sugars HGA1C 9.3 Tely ordered for eval of cryptogenic CVA Review of Systems General: Fatigue, Malaise Objective Exam Vital Signs Vital Signs Date Time Temp Pulse Resp B/P (MAP) Pulse Ox O2 Delivery O2 Flow Rate FiO2 05/28/22 00:12 36.0 75 18 156/69 (98) 93 Room Air 05/25/22 11:38 0.00 Capillary Refill : General Appearance: No Apparent Distress, WD/WN, Chronically ill, Obese HEENT: PERRL/EOMI, Normal ENT Inspection, Pharynx Normal Neck: Full Range of Motion, Normal Inspection, Non Tender, Supple, Carotid Bruit Respiratory: Chest Non Tender, Lungs Clear, Normal Breath Sounds, No Accessory Muscle Use, No Respiratory Distress Cardiovascular: Regular Rate, Rhythm, No Edema, No Gallop, No JVD, No Murmur, Normal Peripheral Pulses Gastrointestinal: Normal Bowel Sounds, No Organomegaly, No Pulsatile Mass, Non Tender, Soft Back: Normal Inspection, No CVA Tenderness, No Vertebral Tenderness Extremity: Normal Capillary Refill, Normal Inspection, Normal Range of Motion, Non Tender, No Calf Tenderness, No Pedal Edema Neurologic/Psychiatric: Alert, Oriented x3, route specialist II-XII Norm as Tested, Abnormal Gait, Depressed Affect, Facial Droop (right), Motor Weakness (right sided 1/5 upper and lower) Skin: Normal Color, Warm/Dry Lymphatic: No Adenopathy Results/Procedures Lab Patient resulted labs reviewed. FIM Transfers Therapy Code Descriptions/Definitions Functional [place] Measure: 0=Not Assessed/NA 4=Minimal Assistance 1=Total Assistance 5=Supervision or Setup 2=Maximal Assistance 6=Modified [place] 3=Moderate Assistance 7=Complete IndependenceSCALE: Activities may be completed with or without assistive devices. 6-[place]-xzblros completes the activity by him/herself with no assistance fr om a helper. 5-Set-up or Clean-up Assistance-helper sets up or cleans up; patient completes activity. [place] assists only prior to or following the activity. 4-Supervision or Touching Assistance-helper provides verbal cues and/or touching/steadying and/or contact guard assistance as patient completes activity. Assistance may be provided throughout the activity or intermittently. 3-Partial/Moderate Assistance-helper does LESS THAN HALF the effort. [place] lifts, holds or supports trunk or limbs, but provides less than half the effort. 2-Substantial/Maximal Assistance-helper does MORE THAN HALF the effort. [place] lifts or holds trunk or limbs and provides more than half the effort. 0-Ghgxteppj-jtlmtf does ALL the effort. Patient does none of the effort to complete the activity. Or, the assistance of 2 or more helpers is required for the patient to complete the activity. If activity was not attempted, code reason: 7-Patient Refused. 9-Not Applicable-not attempted and the patient did not perform the activity before the current illness, exacerbation or injury. 10-Not Attempted due to Environmental Limitations-(lack of equipment, weather restraints, etc.). 88-Not Attempted due to Medical Conditions or Safety Concerns. Roll Left to Right (QC): 3 Sit to Lying (QC): 3 Sit to Stand (QC): 1 (Max (A) of 2 for sit>stand x 2 in // bars, 3rd person to ensure (R) knee does not buckle. Weight shifting (R)/(L) in // bars max (A) x 2. Patient unable to move (R) LE in standing, unable to lift (L) foot in standing.) Chair/Kzm-jd-Lxvbg Xfer(QC): 1 (Max (A) of 2 for swing pivot and stand pivot transfers bed>w/c, W/C<>mat, w/c>recliner.) Car Transfer (QC): 88 Gait Training Does the Patient Walk?: No and Walking Goal NOT indicated Walk 10 feet (QC): 2 Walk 50 ft with 2 Turns(QC): 88 Walk 150 ft (QC): 88 Walking 10ft/uneven surface-QC: 88 Gait Assistive Device: FWW Wheelchair Training Does the Pt Use a Wheelchair?: Yes Distance: 50' Wheel 50 ft with 2 turns (QC): 2 Wheel 150 ft (QC): 2 Type of Wheelchair: Manual Stair Training 1 Step (curb) (QC): 88 4 Steps (QC): 88 12 Steps (QC): 88 Balance Picking up an Object (QC): 88 ADL-Treatment Eating (QC): 4 Oral Hygiene (QC): 5 Shower/Bathe Self (QC): 2 Upper Body Dressing (QC): 2 Lower Body Dressing (QC): 1 On/Off Footwear (QC): 2 Toileting Hygiene (QC): 1 Toilet Transfer (QC): 1 Assessment/Plan Assessment and Plan Assess & Plan/Chief Complaint Assessment: CVA subacute not a tPa candidate Right sided weakness now progressed to flaccidity Dysarthria Dysphagia HTN urgency New DM HGA1C 9.5 Plan: Accuchecks PT OT MRI and carotid noted Supportive care 05/17/2022: DM education Tely Increase insulin and add Metformin 05/18/2022: DC catheter tomorrow 05/19/2022: NH placement? 05/20/2022: NHP 05/21/2022: Monitor closely Incontinence care 05/22/2022: Insulin adjustment 05/23/2022: Aggressive rehab 05/24/2022: Supportive care Monitor sugars 05/25/2022: Monitor sugars 05/26/2022: DM management 05/27/2022: DC VCV tomorrow (1) CVA (cerebral vascular accident) LUANNE MARIE DO May 27, 2022 06:48
--- NOTE | 2022-05-27 07:52 | Occupational Ther Daily Note ---
OT Current Status-Daily Note Subjective Pt sleeping soundly, difficult to wake pt. Pt agrees to therapy. Pt is improving on making wants and needs known. Pt c/o pain in buttocks area, /10, nrsg looked and only red. Mental Status/Objective Patient Orientation: Person, Place, Non-Verbal/Aphasic, Time, Situation ADL-Treatment Mod A for supine to EOB. Sitting EOB with supervision. Max A for SPT. Pt sat 100% of the time for shower using rolling shower chair, grabbars and hand held shower, pt completed all areas except L UE and lower legs/feet. Set up/safety cues for eating. Sitting at sink, completes oral care independently. Max A for footwear. Dependent for LBD. Mod for UBD. Therapy Code Descriptions/Definitions Functional [place] Measure: 0=Not Assessed/NA 4=Minimal Assistance 1=Total Assistance 5=Supervision or Setup 2=Maximal Assistance 6=Modified [place] 3=Moderate Assistance 7=Complete IndependenceSCALE: Activities may be completed with or without assistive devices. 0-Oxcwiteeie-iiyihjg completes the activity by him/herself with no assistance from a helper. 5-Set-up or Clean-up Assistance-helper sets up or cleans up; patient completes activity. [place] assists only prior to or following the activity. 4-Supervision or Touching Assistance-helper provides verbal cues and/or touching/steadying and/or contact guard assistance as patient completes activity. Assistance may be provided throughout the activity or intermittently. 3-Partial/Moderate Assistance-helper does LESS THAN HALF the effort. [place] lifts, holds or supports trunk or limbs, but provides less than half the effort. 2-Substantial/Maximal Assistance-helper does MORE THAN HALF the effort. [place] lifts or holds trunk or limbs and provides more than half the effort. 2-Dnoasajax-kjlfon does ALL the effort. Patient does none of the effort to complete the activity. Or, the assistance of 2 or more helpers is required for the patient to complete the activity. If activity was not attempted, code reason: 7-Patient Refused. 9-Not Applicable-not attempted and the patient did not perform the activity before the current illness, exacerbation or injury. 10-Not Attempted due to Environmental Limitations-(lack of equipment, weather restraints, etc.). 88-Not Attempted due to Medical Conditions or Safety Concerns. Eating (QC): 4 (Set up to open packages/containers. Uses regular utensils independently. Cues to slow down and swallow b/t bites.) Oral Hygiene (QC): 6 Shower/Bathe Self (QC): 3 Upper Body Dressing (QC): 3 Lower Body Dressing (QC): 1 On/Off Footwear: 2 Toileting Hygiene (QC): 1 Toilet Transfer (QC): 1 OT Short Term Goals Short Term Goals Time Frame: May 30, 2022 Oral hygiene: 4 Upper body dressin Lower body dressin Putting on/taking off footwear: 4 OT Assistant Controller Goals Assistant Controller Goals Time Frame: Jun 15, 2022 Acute change in mental status: 0 Inattention: 0 Disorganized thinkin Altered level of consciousness: 0 Eating (QC): 5 Oral Hygiene (QC): 5 Toileting Hygiene (QC): 6 Shower/Bathe Self (QC): 4 Upper Body Dressing (QC): 5 Lower Body Dressing (QC): 5 On/Off Footwear (QC): 5 Additional Goals: 1-Demonstrate ADL Tasks, 2-Verbalize Understanding, 3- ImproveStrength/Ha 1=Demonstrate adherence to instructed precautions during ADL tasks. 2=Patient will verbalize/demonstrate understanding of assistive devices/modifications for ADL. 3=Patient will improve strength/tolerance for activity to enable patient to perform ADL's. OT Education/Plan Problem List/Assessment Assessment: Decreased Activ Tolerance, Decreased Safety Aware, Impaired Self- Care Skills, Restricted Funct UE ROM Discharge Recommendations Plan/Recommendations: Continue POC Treatment Plan/Plan of Care Patient would benefit from OT for education, treatment and training to promote independence in ADL's, mobility, safety and/or upper extremity function for ADL's. Plan of Care: ADL Retraining, Functional Mobility, Group Exercise/Act as Ind, UE Funct Exercise/Act, UE Neuromus Re-Ed/Coord, W/C Management Training Treatment Duration: Jun 15, 2022 Frequency: At least 5 of 7 days/Wk (IRF) Estimated Hrs Per Day: 1.5 hours per day Agreement: Yes Rehab Potential: Guarded Time Start Time: 07:00 Stop Time: 08:00 DATE: May 27, 2022 Total Time Billed (hr/min): 60 Billed Treatment Time 1 visit-ADL 4 (60 min) KRISTA KEE May 27, 2022 07:52
[2022-05-27 08:00] VITALS: BP 127/77
[2022-05-27] MEDS: LOSARTAN 50 MG (COZAAR) TAB PO SCH (08:37)
[2022-05-27] MEDS: ASPIRIN 325 MG (5 GR) TABLET PO SCH (08:38)
[2022-05-27] MEDS: DOCUSATE SODIUM 100 MG (COLACE) CAP PO SCH ×2 (08:38→19:32)
[2022-05-27] MEDS: SENNA W/DOCUSATE (SENOKOT S) TABLET PO SCH ×2 (08:38→19:33)
[2022-05-27] MEDS: polyethylene glycoL POWDER 17 GM (MIRALAX) PACK PO SCH ×2 (08:38→19:33)
[2022-05-27] MEDS: amLODIPine 10 MG (NORVASC) TAB PO SCH (08:38)
[2022-05-27] MEDS: ENOXAPARIN 40 MG/0.4 ML (LOVENOX) SYR SC SCH (08:39)
--- NOTE | 2022-05-27 09:39 | Speech Therapy Daily Note ---
Speech Daily Progress Note Subjective Date Seen by Provider: May 27, 2022 Time Seen by Provider: 09:00 The patient was seated upright in her recliner, awake and alert, upon entrance to her room by the clinician. The patient greeted the clinician and was agreeable to participation in the dysphagia, speech, and language treatment session. The patient remains pleasant and participatory throughout the therapy. Objective The patient and clinician reviewed safe swallowing strategies prior to the initiation of P.O. trials. The patient requires consistent verbal prompts for recall of a chin tuck maneuver. The patient was agreeable to P.O. trials of thin liquid at this time. The clinician provided thin liquids by teaspoon to the left, strong labial side. The patient was encouraged to tuck her chin and swa llow hard. The patient displayed a delayed throat clear following two of the ten trials, and an immediate cough following one of the ten teaspoon trials. Following trials, dysphagia strengthening exercises were reviewed and practiced (effortful swallow, Ariana). The patient completed each exercise with high accuracy and direct clinician modeling. The patient continues to display positive progression of fluent verbal communication, with a reduction in word-finding pauses and halts. The patient tends to utilize the word-finding strategy of additional time to aid in the accurate word. The patient continues with dysarthria, however, remains more than 75% intelligible in known contexts. Assessment Assessment Current Status: Good Progress Treatment Plan Continue Plan of Care Speech Short Term Goals Short Term Goals Short Term Goals 1. The patient will complete oral motor exercises with 80% accuracy, independently. 2. The patient will complete word-finding exercises with 50% accuracy with moderate clinician verbal cueing. Time Frame-STG: Two Weeks. Speech Public Health Program Manager Goals Public Health Program Manager Goals 1. The patient will improve cognitive linguistic skills for safe discharge to the least restrictive environment. Time Frame: Three Weeks. Speech-Plan Treatment Plan Speech Therapy Treatment Plan: Continue Plan of Care Treatment Duration: Jun 06, 2022 Frequency: Modified Program (IRF) Estimated Hrs Per Day: Other Rehab Potential: Guarded Pt/Family Agrees to Plan: Yes Safety Risks/Education Teaching Recipient: Patient Teaching Methods: Demonstration, Discussion Response to Teaching: Return Demonstration, Reinforcement Needed Education Topics Provided: Safe Swallowing Precautions, Word-Finding Strategies, Dysphagia Exercises, Plan of Care Time Speech Therapy Time In: 09:00 Speech Therapy Time Out: 09:30 DATE: May 27, 2022 Total Billed Time: 30 Billed Treatment Time 1, DYST, SLPEDRO QUESADA May 27, 2022 09:39
[2022-05-27] MEDS ORDERED: HYPOCHLOROUS ACID/NaCl (VASHE) 250 ML IR PRN (10:30)
--- NOTE | 2022-05-27 13:52 | Occupational Ther Daily Note ---
OT Current Status-Daily Note Subjective Pt alert, sitting in recliner watching TV. Pt agrees to therapy. Pt aphasic though is improving making wants and needs known. Mental Status/Objective Patient Orientation: Person, Place, Non-Verbal/Aphasic, Time, Situation ADL-Treatment Therapy Code Descriptions/Definitions Functional [place] Measure: 0=Not Assessed/NA 4=Minimal Assistance 1=Total Assistance 5=Supervision or Setup 2=Maximal Assistance 6=Modified [place] 3=Moderate Assistance 7=Complete IndependenceSCALE: Activities may be completed with or without assistive devices. 5-Cbiyexmmlv-exsfozr completes the activity by him/herself with no assistance from a helper. 5-Set-up or Clean-up Assistance-helper sets up or cleans up; patient completes activity. [place] assists only prior to or following the activity. 4-Supervision or Touching Assistance-helper provides verbal cues and/or touching/steadying and/or contact guard assistance as patient completes activity. Assistance may be provided throughout the activity or intermittently. 3-Partial/Moderate Assistance-helper does LESS THAN HALF the effort. [place] lifts, holds or supports trunk or limbs, but provides less than half the effort. 2-Substantial/Maximal Assistance-helper does MORE THAN HALF the effort. [place] lifts or holds trunk or limbs and provides more than half the effort. 0-Lzfwzdeyo-rxsspf does ALL the effort. Patient does none of the effort to complete the activity. Or, the assistance of 2 or more helpers is required for the patient to complete the activity. If activity was not attempted, code reason: 7-Patient Refused. 9-Not Applicable-not attempted and the patient did not perform the activity before the current illness, exacerbation or injury. 10-Not Attempted due to Environmental Limitations-(lack of equipment, weather restraints, etc.). 88-Not Attempted due to Medical Conditions or Safety Concerns. Other Treatment Pt demonstrates active movement in shldr elevation. Pt able to completes 10x's with cues to raise R shldr higher. Pt declines any oral care. Set up with cues for swallowing safety required. After session, pt sitting in recliner with call light/phone in reach. SW present in room. OT Short Term Goals Short Term Goals Time Frame: May 30, 2022 Oral hygiene: 4 Upper body dressin Lower body dressin Putting on/taking off footwear: 4 OT Cuff Matcher Goals Cuff Matcher Goals Time Frame: Jun 15, 2022 Acute change in mental status: 0 Inattention: 0 Disorganized thinkin Altered level of consciousness: 0 Eating (QC): 5 Oral Hygiene (QC): 5 Toileting Hygiene (QC): 6 Shower/Bathe Self (QC): 4 Upper Body Dressing (QC): 5 Lower Body Dressing (QC): 5 On/Off Footwear (QC): 5 Additional Goals: 1-Demonstrate ADL Tasks, 2-Verbalize Understanding, 3- ImproveStrength/Ha 1=Demonstrate adherence to instructed precautions during ADL tasks. 2=Patient will verbalize/demonstrate understanding of assistive devices/modifications for ADL. 3=Patient will improve strength/tolerance for activity to enable patient to perform ADL's. OT Education/Plan Problem List/Assessment Assessment: Decreased Activ Tolerance, Decreased UE Strength, Impaired Self- Care Skills, Restricted Funct UE ROM Discharge Recommendations Plan/Recommendations: Continue POC Treatment Plan/Plan of Care Patient would benefit from OT for education, treatment and training to promote independence in ADL's, mobility, safety and/or upper extremity function for ADL's. Plan of Care: ADL Retraining, Functional Mobility, Group Exercise/Act as Ind, UE Funct Exercise/Act, UE Neuromus Re-Ed/Coord, W/C Management Training Treatment Duration: Jun 15, 2022 Frequency: At least 5 of 7 days/Wk (IRF) Estimated Hrs Per Day: 1.5 hours per day Agreement: Yes Rehab Potential: Guarded Time Start Time: 12:45 Stop Time: 13:00 DATE: May 27, 2022 Total Time Billed (hr/min): 15 Billed Treatment Time 1 visit-FA 1 (15 min) KRISTA KEE May 27, 2022 13:52
--- NOTE | 2022-05-27 13:56 | IRF PAI BIMS ---
BIMS CAM BIMS Expression of Ideas and Wants: Without Difficulty Understanding Verbal Content: Understands Brief Interview/Mental Status: Yes IRF [place] BIMS: IRF [place] BIMS Response (Comments) Value Repitition of Three Words Three 3 Recalls Socks Yes, No Cue Required 2 Recalls Blue Yes, No Cue Required 2 Recalls Bed Yes, No Cue Required 2 Year Correct 3 Month Accurate Within 5 Days 2 Day Correct 1 Total 15 Patient Normally Able to Recal: Current Session, That he/she in a hsp Should Staff Asses. Mental St.: No CAM Mental Status Change/Baseline: 0 Inattention: 0 Disorganized thinkin Altered level of consciousness: 0 KRISTA KEE May 27, 2022 13:56
--- NOTE | 2022-05-27 14:33 | Physical Therapy Daily Note ---
PT Daily Note-Current Subjective Pt found seated in recliner pre-treatment. Agreed to PT. Reports that she did not sleep for very long last night. States that she does not have any pain. Pain Section J - Health Conditions 1. Rarely or not at all 2. Occasionally 3. Frequently 4. Almost constantly 8. Unable to answer Pain Effect on Sleep: 1 Pain Interference with Therapy: 1 Pain Interference w/Day-to-Day: 1 Mental Status Patient Orientation: Person Transfers SCALE: Activities may be completed with or without assistive devices. 3-Etqokdtcdm-gsrdyjk completes the activity by him/herself with no assistance from a helper. 5-Set-up or Clean-up Assistance-helper sets up or cleans up; patient completes activity. [place] assists only prior to or following the activity. 4-Supervision or Touching Assistance-helper provides verbal cues and/or touching/steadying and/or contact guard assistance as patient completes activity. Assistance may be provided throughout the activity or intermittently. 3-Partial/Moderate Assistance-helper does LESS THAN HALF the effort. [place] lifts, holds or supports trunk or limbs, but provides less than half the effort. 2-Substantial/Maximal Assistance-helper does MORE THAN HALF the effort. [place] lifts or holds trunk or limbs and provides more than half the effort. 5-Eorlyrnxg-qxihns does ALL the effort. Patient does none of the effort to complete the activity. Or, the assistance of 2 or more helpers is required for the patient to complete the activity. If activity was not attempted, code reason: 7-Patient Refused. 9-Not Applicable-not attempted and the patient did not perform the activity before the current illness, exacerbation or injury. 10-Not Attempted due to Environmental Limitations-(lack of equipment, weather restraints, etc.). 88-Not Attempted due to Medical Conditions or Safety Concerns. Sit to Stand (QC): 3 Chair/Kzf-wq-Flaad Xfer(QC): 3 Pt MOD assist with chair to WC transfers. MIN assist with sit to stand transfer. Gait Training Does the Patient Walk?: No and Walking Goal IS indicated Wheelchair Training Does the Pt Use a Wheelchair?: Yes Wheel 50 ft with 2 turns (QC): 3 Wheel 150 ft (QC): 3 Type of Wheelchair: Manual MIN assist for steering. VCs for slower propelling and turns. Exercises Standing exercise: Weight shifts 20 seconds x 3. Seated exercise: Hip abd/add with ball, heel slides, heel/toe raises with pushes on AirX, quad push down on AirX, hamstring sets on AirX x 10 each. Assessment Current Status: Good Progress Pt displays good tolerance to therapeutic exercises. Demonstrates ability to stand with proper posture at //. Pt only able to tolerate standing for 20 seconds at a time likely due to muscle fatigue. Continue to progress pt as tolerated per POC to improve strength, endurance, and functional ability. PT Physician'S Assistant Goals Physician'S Assistant Goals PT Physician'S Assistant Goals Time Frame: May 30, 2022 Roll Left & Right (QC): 4 Sit to Lying (QC): 4 Lying-Sitting on Side/Bed(QC): 4 Sit to Stand (QC): 2 Chair/Vxc-ba-Vlhix Xfer(QC): 2 Toilet Transfer (QC): 2 Car Transfer (QC): 2 Does the Patient Walk: No and Walking Goal NOT indicated Walk 10 feet (QC): 88 Walk 50ft with 2 Turns (QC): 88 Walk 150 ft (QC): 88 Walking 10ft on Uneven Surface: 88 1 Step (curb) (QC): 88 4 Steps (QC): 88 12 Steps (QC): 88 Picking up an Object (QC): 88 Wheel 50 feet with 2 turns (QC: 4 (SBA) Wheel 150 feet: 4 (SBA) PT Plan Treatment/Plan Treatment Plan: Continue Plan of Care Treatment Plan: Bed Mobility, Education, Functional Activity Ha, Functional Strength, Group Therapy, Gait, Safety, Therapeutic Exercise, Transfers Treatment Duration: May 30, 2022 Frequency: At least 5 of 7 days/Wk (IRF) Estimated Hrs Per Day: 1.5 hours per day Patient and/or Family Agrees t: Yes Time Time In: 1115 Time Out: 1200 DATE: May 27, 2022 Total Billed Treatment Time: 45 Total Billed Treatment 1 visit FA x 2 EX x 1 FRIEDA WEINER GENERAL STUDIES PROGRAM CHAIR May 27, 2022 14:33
--- NOTE | 2022-05-27 15:10 | Physical Therapy Daily Note ---
PT Daily Note-Current Subjective Pt found seated in recliner upon entry. Agreed to PT. States that her fatigue comes and goes throughout the day but she is not currently tired. Reports that she is not have any pain. Pain Section J - Health Conditions 1. Rarely or not at all 2. Occasionally 3. Frequently 4. Almost constantly 8. Unable to answer Pain Effect on Sleep: 1 Pain Interference with Therapy: 1 Pain Interference w/Day-to-Day: 1 Mental Status Patient Orientation: Person Transfers SCALE: Activities may be completed with or without assistive devices. 8-Dipnxvltqd-xnhcpvp completes the activity by him/herself with no assistance from a helper. 5-Set-up or Clean-up Assistance-helper sets up or cleans up; patient completes activity. [place] assists only prior to or following the activity. 4-Supervision or Touching Assistance-helper provides verbal cues and/or touching/steadying and/or contact guard assistance as patient completes activity. Assistance may be provided throughout the activity or intermittently. 3-Partial/Moderate Assistance-helper does LESS THAN HALF the effort. [place] lifts, holds or supports trunk or limbs, but provides less than half the effort. 2-Substantial/Maximal Assistance-helper does MORE THAN HALF the effort. [place] lifts or holds trunk or limbs and provides more than half the effort. 2-Mrugodyxw-bmwqoq does ALL the effort. Patient does none of the effort to complete the activity. Or, the assistance of 2 or more helpers is required for the patient to complete the activity. If activity was not attempted, code reason: 7-Patient Refused. 9-Not Applicable-not attempted and the patient did not perform the activity before the current illness, exacerbation or injury. 10-Not Attempted due to Environmental Limitations-(lack of equipment, weather restraints, etc.). 88-Not Attempted due to Medical Conditions or Safety Concerns. Roll Left & Right (QC): 3 Sit to Lying (QC): 3 Lying to Sitting/Side of Bed(Q: 3 Sit to Stand (QC): 3 Chair/Jyf-fo-Gyzmb Xfer(QC): 2 Toilet Transfer (QC): 2 Car Transfer (QC): 88 Pt Max assist while performing chair to bed and toilet transfers. Limited ability to move affected LE while in a standing position. MIN lifting assistance with sit to stand transfers. MIN assist with lifting LEs into bed during sit to ly transfers. MIN assist at shoulders with ly to sit transfer. Gait Training Does the Patient Walk?: No and Walking Goal IS indicated Walk 10 feet (QC): 88 Walk 50 ft with 2 Turns(QC): 88 Walk 150 ft (QC): 88 Walking 10ft/uneven surface-QC: 88 Pt unsafe to complete gait training at this time due to limited affected LE movement and strength. Wheelchair Training Does the Pt Use a Wheelchair?: No Stair Training 1 Step (curb) (QC): 88 4 Steps (QC): 88 12 Steps (QC): 88 Pt unable to complete stair training at this time due to safety concerns. Balance Picking up an Object (QC): 88 Special Test Comments Pt unable to pick object off floor due to safety concerns. Exercises Seated on EOB exercises: LAQs, heel/toe raises, marches x 10 each Supine exercises: Hamstring sets, quad sets, glute sets, SLR x 10 each. Assessment Current Status: Good Progress Pt displays limited tolerance to transfer training likely due to fatigue. Pt has difficulty moving affected LE while in standing position. Required short seated rest breaks throughout visit. Able to complete all therapeutic exercises on affected LE but does not complete full ROM. PT Fci Goals Child Welfare Caseworker Goals PT Child Welfare Caseworker Goals Time Frame: May 30, 2022 Roll Left & Right (QC): 4 Sit to Lying (QC): 4 Lying-Sitting on Side/Bed(QC): 4 Sit to Stand (QC): 2 Chair/Ogx-kc-Jgnzk Xfer(QC): 2 Toilet Transfer (QC): 2 Car Transfer (QC): 2 Does the Patient Walk: No and Walking Goal NOT indicated Walk 10 feet (QC): 88 Walk 50ft with 2 Turns (QC): 88 Walk 150 ft (QC): 88 Walking 10ft on Uneven Surface: 88 1 Step (curb) (QC): 88 4 Steps (QC): 88 12 Steps (QC): 88 Picking up an Object (QC): 88 Wheel 50 feet with 2 turns (QC: 4 (SBA) Wheel 150 feet: 4 (SBA) PT Plan Treatment/Plan Treatment Plan: Continue Plan of Care Treatment Plan: Bed Mobility, Education, Functional Activity Ha, Functional Strength, Group Therapy, Gait, Safety, Therapeutic Exercise, Transfers Treatment Duration: May 30, 2022 Frequency: At least 5 of 7 days/Wk (IRF) Estimated Hrs Per Day: 1.5 hours per day Patient and/or Family Agrees t: Yes Time Time In: 1330 Time Out: 1400 DATE: May 27, 2022 Total Billed Treatment Time: 30 Total Billed Treatment 1 visit FA x 1 EX x 1 FRIEDA WEINER PTA May 27, 2022 15:10
[2022-05-27 16:01] VITALS: BP 146/69
--- NOTE | 2022-05-27 20:50 | Progress Note ---
LYNN PASTOR 05/27/222049: Progress Note I have reviewed all therapy records for Karena Kwong, a 72 year old female who was admitted to [facility] rehab unit on 05/16 following a CVA. She has been working with PT/OT/ST during her stay. Per PT notes, upon initial evaluation, she was needing substantial assistance with transfering from sitting to lying and from lying to sitting. She required moderate assistance with other areas of transferring except for car transfers which was not performed due to safety concerns. She was able to walk up to 10ft with significant assistance and FWW. She was able to use a wheelchair up to 50ft with moderate assist using her left arm and leg to propel. Stairs were not attempted and her balance was poor. By 05/27 her transferring abilities were mostly unchanged, still requiring significant to moderate assistance in all areas. Her ability to walk appeared unchanged or even slightly worse due to extension of CVA and was frequntly unsafe to attempt walking with PT. She was able to use a wheelchair with moderate assistance up to 150ft. Per PT notes, upon initial evaluation she required moderate assistance with eating, oral hygiene, bathing, and dressing her upper body. Substantial assistance with dressing her lower body and footwear, and was totally dependent for toileting hygiene. She was having some difficulties with speach but had good understanding of verbal content. By 05/27 she was able to perform oral hygiene independently. She could eat with supervision. She could use footwear with substantial assistance. All other ADL's she was still totally dependent for. Per ST notes, upon initial evaluation the patient had difficulties with thin liquids characterized by wet vocal quality following study at bedside by nurse. she did have a barium swallow study and was placed on MM5 with mildly thick liquids as tolerated. By 05/[address] she was beginning to trial thin liquids again, but still working on safe swallowing strategies and dysphagia strengthening exercises. LAURA MARIE DO 05/28/22 0516: Supervisory-Addendum Brief Verification & Attestation Participated in pt care: history, MDM, physical Personally performed: exam, history, MDM, supervision of care Care discussed with: Medical Student Procedures: n/a Results interpretation: Verified all documentation Verification and Attestation of Medical Student E/M Service A medical student performed and documented this service in my presence. I reviewed and verified all information documented by the medical student and made modifications to such information, when appropriate. I personally performed the physical exam and medical decision making. Laura Marie, May 28, 2022,05:16 LYNN PASTOR May 27, 2022 20:50 LAURA MARIE DO May 28, 2022 05:16
[2022-05-28 00:12] VITALS: BP 156/69
[2022-05-28] MEDS: inSUlin ASPART (NovoLOG) 1 UNIT/0.01 ML (CHARGE PER UNIT) SC SCH ×4 (05:57→11:37)
[2022-05-28] MEDS: KCL 10 MEQ TAB (MICRO K) PO SCH (06:01)
[2022-05-28] MEDS: metFORMIN 500 MG (GLUCOPHAGE) TAB PO SCH (06:02)
[2022-05-28] MEDS ORDERED: ACET325T49 PO (06:21)
[2022-05-28] MEDS ORDERED: SENN1TAB76 PO (06:21)
[2022-05-28] MEDS ORDERED: METF-397 PO (06:21)
[2022-05-28] MEDS ORDERED: AMLO-251 PO (06:21)
[2022-05-28] MEDS ORDERED: ENOX40DI8 SC (06:21)
[2022-05-28] MEDS ORDERED: OMEG1CAP58 PO (06:21)
[2022-05-28] MEDS ORDERED: ASPI-808 PO (06:21)
[2022-05-28] MEDS ORDERED: INSU100I14 SQ (06:21)
[2022-05-28] MEDS ORDERED: NEED-474 MC (06:21)
[2022-05-28] MEDS ORDERED: ATOR80TA76 PO (06:21)
[2022-05-28] MEDS ORDERED: INSU100I29 SQ (06:21)
[2022-05-28] MEDS ORDERED: LOSA50TA63 PO (06:21)
--- NOTE | 2022-05-28 06:22 | Discharge Inst-Skilled Nursing ---
Discharge Inst-Skilled NF Reconcile Patient Problems Problems Reviewed?: Yes Patient Instructions Patient Problems: CVA Consult/Follow Up/Orders Follow Up Appt.: Dr Sterling/Crystal Luque [place] service Skilled NF Admit to: [facility] [place] Certification ([facility]) I certify that SNF services are required to be given on an inpatient basis because of the above named patient's need for mcfp care on a continuing basis for the conditions(s) for which he/she was receiving inpatient hospital services prior to his/her transfer to the SNF. Half-Way Facility Order: Nursing Services, Card Folder-Evaluate & Treat, Physical Therapy-Evaluate & Treat, Speech Language-Evaluate & Treat Oxygen Delivery Method: Room Air Discharge Diet: ADA Diet Resuscitation Status: Full Code New & Resume Previous Orders New Medications: Insulin Aspart (Novolog Flexpen) 100 Unit/Ml (3 Ml) Solution 3 UNITS SQ AC, #1 EA Insulin Detemir (Levemir Flextouch) 100 Unit/Ml (3 Ml) Insuln.pen 5 UNIT SQ BID, #1 EA [place], Insulin Disposable (Advocate Pen [place]) 31 Gauge X 5/16" Dis.needle EACH MC ACHS for Hyperglycemia, #100 Acetaminophen (Acetaminophen) 325 Mg Tablet 650 MG PO Q6H PRN for PAIN-MILD (1-4), #30 TAB Amlodipine Besylate (Amlodipine Besylate) 10 Mg Tablet 10 MG PO DAILY, #30 TAB Aspirin (Aspirin) 325 Mg Tablet 325 MG PO DAILY, #30 TAB Enoxaparin Sodium (Enoxaparin Sodium) 40 Mg/0.4 Ml Syringe 40 MG SC Q24H, #14 SYRINGE Losartan Potassium (Losartan Potassium) 50 Mg Tablet 50 MG PO DAILY, #30 TAB Metformin HCl (Metformin HCl) 500 Mg Tablet 500 MG PO DAILY@07, #30 TAB Sennosides/Docusate Sodium (Stool Softener-Laxative Tablet) 8.6 Mg-50 Mg Tablet 1 EA PO BID, #30 TAB Continued Medications: Atorvastatin Calcium (Atorvastatin Calcium) 80 Mg Tablet 80 MG PO HS, #30 TAB (This prescription has been renewed) [place]-3 Fatty Acids/Fish Oil ([place] 3 1,000 mg Softgel) 300 Mg-1,000 Mg Capsule 1 EACH PO DAILY, #30 CAP (This prescription has been renewed) Discontinued Medications: Aspirin (Aspirin EC) 81 Mg Tablet. 81 MG PO DAILY, TAB Laura Dexter 29, 2023 06:21 LAURA STERLING DO May 28, 2022 06:22
--- NOTE | 2022-05-28 06:22 | Discharge Summary ---
Diagnosis/Chief Complaint Date of Admission May 16, 2022 at 14:20 Date of Discharge Discharge Date: May 28, 2022 Discharge Diagnosis Assessment: CVA subacute not a tPa candidate Right sided weakness now progressed to flaccidity Dysarthria Dysphagia HTN urgency New DM HGA1C 9.5 Plan: Accuchecks PT OT MRI and carotid noted Supportive care 05/17/2022: DM education Tely Increase insulin and add Metformin 05/18/2022: DC catheter tomorrow 05/19/2022: NH placement? 05/20/2022: NHP 05/21/2022: Monitor closely Incontinence care 05/22/2022: Insulin adjustment 05/23/2022: Aggressive rehab 05/24/2022: Supportive care Monitor sugars 05/25/2022: Monitor sugars 05/26/2022: DM management 05/27/2022: DC VCV tomorrow (1) CVA (cerebral vascular accident) Discharge Summary Discharge Physical Examination Allergies: Coded Allergies: No Known Drug Allergies (Unverified , 05/15/22) Vitals & I&Os Vital Signs Date Time Temp Pulse Resp B/P (MAP) Pulse Ox O2 Delivery O2 Flow Rate FiO2 05/28/22 12:00 36.2 83 16 153/70 94 Room Air 0.00 General Appearance: Alert, Oriented X3, Cooperative Respiratory: Clear to Auscultation Cardiovascular: Regular Rate Psych/Mental Status: Mental Status NL Hospital Course Was the Problem List Reviewed?: Yes Standard course after she was admitted following a catastrophic CVA. She participated in therapy. Speech was able to advance her diet after modified barium swallow. DM new onset was managed with insulin. Overall she remained st able but required skilled care for additional time to be able to regain independence so she will be on my service at [facility]. Labs (last 24 hrs) Laboratory Tests 05/16/22 20:24: Glucometer 270H 05/17/22 05:50: White Blood Count 10.9, Red Blood Count 4.64, Hemoglobin 14.4, Hematocrit 42, Mean Corpuscular Volume 91, Mean Corpuscular Hemoglobin 31, Mean Corpuscular Hem oglobin Concent 34, Red Cell Distribution Width 12.6, Platelet Count 230, Mean Platelet Volume 9.4, Immature Granulocyte % (Auto) 0, Neutrophils (%) (Auto) 67, Lymphocytes (%) (Auto) 26, Monocytes (%) (Auto) 6, Eosinophils (%) (Auto) 1, Basophils (%) (Auto) 0, Neutrophils # (Auto) 7.3, Lymphocytes # (Auto) 2.8, Monocytes # (Auto) 0.6, Eosinophils # (Auto) 0.2, Basophils # (Auto) 0.0, Immature Granulocyte # (Auto) 0.0, Sodium Level 140, Potassium Level 3.5L, Chloride Level 108H, Carbon Dioxide Level 20L, Anion Gap 12, Blood Urea Nitrogen 16, Creatinine 0.84, Estimat Glomerular Filtration Rate 74, BUN/Creatinine Ratio 19, Glucose Level 188H, Calcium Level 9.3, Corrected Calcium 9.9, Total Bilirubin 0.9, Aspartate Amino Transf (AST/SGOT) 23, Alanine Aminotransferase (ALT/SGPT) 22, Alkaline Phosphatase 105, Total Protein 6.1L, Albumin 3.2, Thyroid Stimulating Hormone (TSH) 1.34 05/17/22 11:07: Glucometer 344H 05/17/22 15:15: Glucometer 297H 05/17/22 20:04: Glucometer 201H 05/18/22 05:24: Glucometer 212H 05/18/22 11:13: Glucometer 238H 05/18/22 15:22: Glucometer 268H 05/18/22 20:33: Glucometer 172H 05/19/22 06:15: Glucometer 116H 05/19/22 11:10: Glucometer 127H 05/19/22 15:46: Glucometer 196H 05/19/22 20:41: Glucometer 192H 05/20/22 05:35: Glucometer 120H 05/20/22 10:58: Glucometer 128H 05/20/22 15:00: Glucometer 104 05/20/22 20:06: Glucometer 127H 05/21/22 04:52: Glucometer 95 05/21/22 10:55: Glucometer 121H 05/21/22 15:13: Glucometer 142H 05/21/22 20:20: Glucometer 131H 05/22/22 05:25: Glucometer 90 05/22/22 11:18: Glucometer 116H 05/22/22 15:53: Glucometer 124H 05/22/22 20:50: Glucometer 144H 05/23/22 06:21: Glucometer 110 05/23/22 10:57: Glucometer 173H 05/23/22 15:21: Glucometer 135H 05/23/22 21:08: Glucometer 165H 05/24/22 05:46: Glucometer 94 05/24/22 11:07: Glucometer 160H 05/24/22 16:09: Glucometer 154H 05/24/22 20:13: Glucometer 154H 05/25/22 04:56: Glucometer 107 05/25/22 11:26: Glucometer 130H 05/25/22 15:39: Glucometer 134H 05/25/22 20:29: Glucometer 134H 05/26/22 05:23: White Blood Count 9.8, Red Blood Count 4.13, Hemoglobin 12.9, Hematocrit 38, Mean Corpuscular Volume 92, Mean Corpuscular Hemoglobin 31, Mean Corpuscular Hemoglobin Concent 34, Red Cell Distribution Width 12.0, Platelet Count 298, Mean Platelet Volume 9.1, Immature Granulocyte % (Auto) 0, Neutrophils (%) (Auto) 60, Lymphocytes (%) (Auto) 31, Monocytes (%) (Auto) 7, Eosinophils (%) (Auto) 2, Basophils (%) (Auto) 1, Neutrophils # (Auto) 5.9, Lymphocytes # (Auto) 3.0, Monocytes # (Auto) 0.7, Eosinophils # (Auto) 0.2, Basophils # (Auto) 0.1, Immature Granulocyte # (Auto) 0.0, Sodium Level 138, Potassium Level 4.0, Chloride Level 107, Carbon Dioxide Level 20L, Anion Gap 11, Blood Urea Nitrogen 17, Creatinine 0.76, Estimat Glomerular Filtration Rate 83, BUN/Creatinine Ratio 22, Glucose Level 112H, Calcium Level 9.2, Corrected Calcium 9.8, Total Bilirubin 0.5, Aspartate Amino Transf (AST/SGOT) 30, Alanine Aminotransferase (ALT/SGPT) 41, Alkaline Phosphatase 181H, Total Protein 6.0L, Albumin 3.2 05/26/22 10:53: Glucometer 136H 05/26/22 15:42: Glucometer 146H 05/26/22 20:06: Glucometer 174H 05/27/22 06:20: Glucometer 107 05/27/22 10:53: Glucometer 114H 05/27/22 15:59: Glucometer 124H 05/27/22 20:25: Glucometer 176H 05/28/22 05:55: Glucometer 110 05/28/22 11:10: Glucometer 122H Pending Labs Laboratory Tests 05/16/22 20:24: Glucometer 270 05/17/22 05:50: White Blood Count 10.9, Red Blood Count 4.64, Hemoglobin 14.4, Hematocrit 42, Mean Corpuscular Volume 91, Mean Corpuscular Hemoglobin 31, Mean Corpuscular Hemoglobin Concent 34, Red Cell Distribution Width 12.6, Platelet Count 230, Mean Platelet Volume 9.4, Immature Granulocyte % (Auto) 0, Neutrophils (%) (Auto) 67, Lymphocytes (%) (Auto) 26, Monocytes (%) (Auto) 6, Eosinophils (%) (Auto) 1, Basophils (%) (Auto) 0, Neutrophils # (Auto) 7.3, Lymphocytes # (Auto) 2.8, Monocytes # (Auto) 0.6, Eosinophils # (Auto) 0.2, Basophils # (Auto) 0.0, Immature Granulocyte # (Auto) 0.0, Sodium Level 140, Potassium Level 3.5, Chloride Level 108, Carbon Dioxide Level 20, Anion Gap 12, Blood Urea Nitrogen 16, Creatinine 0.84, Estimat Glomerular Filtration Rate 74, BUN/Creatinine Ratio 19, Glucose Level 188, Calcium Level 9.3, Corrected Calcium 9.9, Total Bilirubin 0.9, Aspartate Amino Transf (AST/SGOT) 23, Alanine Aminotransferase (ALT/SGPT) 22, Alkaline Phosphatase 105, Total Protein 6.1, Albumin 3.2, Thyroid Stimulating Hormone (TSH) 1.34 05/17/22 11:07: Glucometer 344 05/17/22 15:15: Glucometer 297 05/17/22 20:04: Glucometer 201 05/18/22 05:24: Glucometer 212 05/18/22 11:13: Glucometer 238 05/18/22 15:22: Glucometer 268 05/18/22 20:33: Glucometer 172 05/19/22 06:15: Glucometer 116 05/19/22 11:10: Glucometer 127 05/19/22 15:46: Glucometer 196 05/19/22 20:41: Glucometer 192 05/20/22 05:35: Glucometer 120 05/20/22 10:58: Glucometer 128 05/20/22 15:00: Glucometer 104 05/20/22 20:06: Glucometer 127 05/21/22 04:52: Glucometer 95 05/21/22 10:55: Glucometer 121 05/21/22 15:13: Glucometer 142 05/21/22 20:20: Glucometer 131 05/22/22 05:25: Glucometer 90 05/22/22 11:18: Glucometer 116 05/22/22 15:53: Glucometer 124 05/22/22 20:50: Glucometer 144 05/23/22 06:21: Glucometer 110 05/23/22 10:57: Glucometer 173 05/23/22 15:21: Glucometer 135 05/23/22 21:08: Glucometer 165 05/24/22 05:46: Glucometer 94 05/24/22 11:07: Glucometer 160 05/24/22 16:09: Glucometer 154 05/24/22 20:13: Glucometer 154 05/25/22 04:56: Glucometer 107 05/25/22 11:26: Glucometer 130 05/25/22 15:39: Glucometer 134 05/25/22 20:29: Glucometer 134 05/26/22 05:23: White Blood Count 9.8, Red Blood Count 4.13, Hemoglobin 12.9, Hematocrit 38, Mean Corpuscular Volume 92, Mean Corpuscular Hemoglobin 31, Mean Corpuscular Hemoglobin Concent 34, Red Cell Distribution Width 12.0, Platelet Count 298, Mean Platelet Volume 9.1, Immature Granulocyte % (Auto) 0, Neutrophils (%) (Auto) 60, Lymphocytes (%) (Auto) 31, Monocytes (%) (Auto) 7, Eosinophils (%) (Auto) 2, Basophils (%) (Auto) 1, Neutrophils # (Auto) 5.9, Lymphocytes # (Auto) 3.0, Monocytes # (Auto) 0.7, Eosinophils # (Auto) 0.2, Basophils # (Auto) 0.1, Immature Granulocyte # (Auto) 0.0, Sodium Level 138, Potassium Level 4.0, Chloride Level 107, Carbon Dioxide Level 20, Anion Gap 11, Blood Urea Nitrogen 17, Creatinine 0.76, Estimat Glomerular Filtration Rate 83, BUN/Creatinine Ratio 22, Glucose Level 112, Calcium Level 9.2, Corrected Calcium 9.8, Total Bilirubin 0.5, Aspartate Amino Transf (AST/SGOT) 30, Alanine Aminotransferase (ALT/SGPT) 41, Alkaline Phosphatase 181, Total Protein 6.0, Albumin 3.2 05/26/22 10:53: Glucometer 136 05/26/22 15:42: Glucometer 146 05/26/22 20:06: Glucometer 174 05/27/22 06:20: Glucometer 107 05/27/22 10:53: Glucometer 114 05/27/22 15:59: Glucometer 124 05/27/22 20:25: Glucometer 176 05/28/22 05:55: Glucometer 110 05/28/22 11:10: Glucometer 122 Discharge Home Medications: Active Scripts Active Advocate Pen [place] ([place], Insulin Disposable) 31 Gauge X 5/16" Dis.needle Each MC ACHS Novolog Flexpen (Insulin Aspart) 100 Unit/Ml (3 Ml) Solution 3 Units SQ AC Levemir Flextouch (Insulin Detemir) 100 Unit/Ml (3 Ml) Insuln.pen 5 Unit SQ BID Metformin HCl 500 Mg Tablet 500 Mg PO DAILY@07 Stool Softener-Laxative Tablet (Sennosides/Docusate Sodium) 8.6 Mg-50 Mg Tablet 1 Ea PO BID Acetaminophen 325 Mg Tablet 650 Mg PO Q6H PRN Aspirin 325 Mg Tablet 325 Mg PO DAILY Losartan Potassium 50 Mg Tablet 50 Mg PO DAILY Amlodipine Besylate 10 Mg Tablet 10 Mg PO DAILY Enoxaparin Sodium 40 Mg/0.4 Ml Syringe 40 Mg SC Q24H Atorvastatin Calcium 80 Mg Tablet 80 Mg PO HS [place] 3 1,000 mg Softgel ([place]-3 Fatty Acids/Fish Oil) 300 Mg-1,000 Mg Capsule 1 Each PO DAILY Instructions to patient/family Please see electronic discharge instructions given to patient. Diagnosis/Problems Diagnosis/Problems (1) CVA (cerebral vascular accident) LUANNE MARIE DO May 28, 2022 06:22
[2022-05-28 07:59] VITALS: BP 153/70
[2022-05-28] MEDS: DOCUSATE SODIUM 100 MG (COLACE) CAP PO SCH (08:50)
[2022-05-28] MEDS: SENNA W/DOCUSATE (SENOKOT S) TABLET PO SCH (08:50)
[2022-05-28] MEDS: polyethylene glycoL POWDER 17 GM (MIRALAX) PACK PO SCH (08:50)
[2022-05-28] MEDS: amLODIPine 10 MG (NORVASC) TAB PO SCH (08:55)
[2022-05-28] MEDS: ENOXAPARIN 40 MG/0.4 ML (LOVENOX) SYR SC SCH (08:55)
[2022-05-28] MEDS: LOSARTAN 50 MG (COZAAR) TAB PO SCH (08:55)
[2022-05-28] MEDS: ASPIRIN 325 MG (5 GR) TABLET PO SCH (08:55)
--- NOTE | 2022-05-28 10:35 | Speech Therapy Daily Note ---
Speech Daily Progress Note Subjective Date Seen by Provider: May 28, 2022 Time Seen by Provider: 09:30 The patient was seated in her recliner, awake and alert, upon entrance to her room by the clinician. The patient greeted the clinician appropriately and was agreeable to participation in the dysphagia treatment session. Objective Prior to discharge, the clinician wanted to review safe swallowing strategies, dysphagia strengthening exercises, oral motor exercises, the speech language pathologist's plan of care, and the patient's current diet consistency. The patient stated, "I've been practicing it all," as she displays dysphagia exercises to the clinician independently. The patient verbalized comprehension of the safe swallowing strategies, as well as, her current diet consistency. The patient is tearful regarding her discharge saying, "Well, there is nothing left to do now. I guess I am going." The clinician provided supportive listening and encouragement. The patient stated she agreed with the plan of care but was "hoping" for additional time. The clinician stated the patient would continue to receive rehabilitation services at the [facility], as the facility will serve as an extension of her current therapy skills, with additional time to strengthen and heal. The patient denied additional questions or concerns for the clinician at this time. Assessment Assessment Current Status: Good Progress Treatment Plan Continue Plan of Care Speech Short Term Goals Short Term Goals Short Term Goals 1. The patient will complete oral motor exercises with 80% accuracy, i ndependently. 2. The patient will complete word-finding exercises with 50% accuracy with moderate clinician verbal cueing. Time Frame-STG: Two Weeks. Speech Physician Office Nurse Goals Physician Office Nurse Goals 1. The patient will improve cognitive linguistic skills for safe discharge to the least restrictive environment. Time Frame: Three Weeks. Speech-Plan Treatment Plan Speech Therapy Treatment Plan: Discontinue ST Treatment Duration: Jun 06, 2022 Frequency: Modified Program (IRF) Estimated Hrs Per Day: Other Rehab Potential: Guarded Pt/Family Agrees to Plan: Yes Safety Risks/Education Teaching Recipient: Patient Teaching Methods: Discussion Response to Teaching: Verbalize Understanding Education Topics Provided: Safe Swallowing Precautions Time Speech Therapy Time In: 09:30 Speech Therapy Time Out: 09:40 DATE: May 28, 2022 Total Billed Time: 10 Billed Treatment Time 1, PEDRO MICHEL May 28, 2022 10:34
--- NOTE | 2022-05-28 10:37 | Therapy Team Discharge Summary ---
Therapy Discharge Summary Discharge Recommendations Date of Discharge Physical Therapy Roll Left to Right (QC): 3 Sit to Lying (QC): 3 Lying to Sitting/Side of Bed(Q: 3 Sit to Stand (QC): 3 Chair/Hxe-or-Aqhdf Xfer(QC): 2 Toilet Transfer (QC): 1 Car Transfer (QC): 88 Does the Patient Walk: No and Walking Goal IS indicated Mode of Locomotion: Walk Anticipated Mode of Locomotion: Walk Walk 10 feet (QC): 88 Walk 50 ft with 2 Turns(QC): 88 Walk 150 ft (QC): 88 Walking 10ft on uneven surface: 88 Distance: 10' Gait Assistive Device: FWW Does the Pt Use a Wheelchair: No Wheelchair Distance: 50' Wheel 50 ft with 2 turns (QC): 3 Wheel 150 ft (QC): 3 Type of Wheelchair: Manual 1 Step (curb) (QC): 88 4 Steps (QC): 88 12 Steps (QC): 88 Balance Sitting Static: Poor Balance Sitting Dynamic: Poor Balance-Standing Static: Poor Picking up an Object (QC): 88 Occupational Therapy Decreased Activ Tolerance, Decreased UE Strength, Impaired Self-Care Skills, Restricted Funct UE ROM Eating (QC): 4 (Set up to open packages/containers. Uses regular utensils independently. Cues to slow down and swallow b/t bites.) Oral Hygiene (QC): 6 Shower/Bathe Self (QC): 3 Upper Body Dressing (QC): 3 Lower Body Dressing (QC): 1 On/Off Footwear (QC): 2 Toileting Hygiene (QC): 1 Speech-Language Pathology The patient will discharge to a correction facility at this time. The patient made positive gains towards language, speech, and dysphagia goals, continuing to display progress at the time of her discharge date. The patient remains on a MM5 consistency diet with mildly thick liquids. Safe swallowing precautions can be located in the patient's medical chart. The patient continues to display moderate dysarthria and mild expressive aphasia. PT Jail Goals Jail Goals PT Jail Goals Time Frame: May 30, 2022 Roll Left to Right (QC): 4 Sit to Lying (QC): 4 Lying-Sitting on Side/Bed(QC): 4 Sit to Stand (QC): 2 Chair/Wjh-hu-Ewelt Xfer(QC): 2 Toilet/Commode Transfer (QC): 2 Car Transfer (QC): 2 Does the Patient Walk: No and Walking Goal NOT indicated Walk 10 feet (QC): 88 Walk 10ft-Uneven Surface(QC): 88 Walk 50ft with 2 Turns (QC): 88 Walk 150 ft (QC): 88 Wheel 50 feet with 2 turns (QC: 4 (SBA) Wheel 150 feet: 4 (SBA) 1 Step (curb) (QC): 88 4 Steps (QC): 88 12 Steps (QC): 88 Picking up an Object (QC): 88 OT Jail Goals Jail Goals Time Frame: Jun 15, 2022 Acute change in mental status: 0 Inattention: 0 Disorganized thinkin Altered level of consciousness: 0 Eating (QC): 5 Oral Hygiene (QC): 5 Toileting Hygiene (QC): 6 Shower/Bathe Self (QC): 4 Upper Body Dressing (QC): 5 Lower Body Dressing (QC): 5 On/Off Footwear (QC): 5 Additional Goals: 1-Demonstrate ADL Tasks, 2-Verbalize Understanding, 3-ImproveStrength/Ha 1=Demonstrate adherence to instructed precautions during ADL tasks. 2=Patient will verbalize/demonstrate understanding of assistive devices/modifications for ADL. 3=Patient will improve strength/tolerance for activity to enable patient to per form ADL's. Speech Jail Goals Incubator Machine Operator Goals 1. The patient will improve cognitive linguistic skills for safe discharge to the least restrictive environment. MET: The patient will discharge to a correction facility at this time. The patient made positive gains towards language, speech, and dysphagia goals, continuing to display progress at the time of her discharge date. Time Frame: Three Weeks. PEDRO BUENROSTRO May 28, 2022 10:37
[2022-05-28 12:00] VITALS: BP 153/70
--- NOTE | 2022-05-28 13:59 | Therapy Team Discharge Summary ---
Therapy Discharge Summary Discharge Recommendations Date of Discharge Physical Therapy Roll Left to Right (QC): 3 Sit to Lying (QC): 3 Lying to Sitting/Side of Bed(Q: 3 Sit to Stand (QC): 3 Chair/Ukt-lz-Rhyib Xfer(QC): 2 Toilet Transfer (QC): 1 Car Transfer (QC): 88 Does the Patient Walk: No and Walking Goal IS indicated Mode of Locomotion: Walk Anticipated Mode of Locomotion: Walk Walk 10 feet (QC): 88 Walk 50 ft with 2 Turns(QC): 88 Walk 150 ft (QC): 88 Walking 10ft on uneven surface: 88 Distance: 10' Gait Assistive Device: FWW Does the Pt Use a Wheelchair: No Wheelchair Distance: 50' Wheel 50 ft with 2 turns (QC): 3 Wheel 150 ft (QC): 3 Type of Wheelchair: Manual 1 Step (curb) (QC): 88 4 Steps (QC): 88 12 Steps (QC): 88 Balance Sitting Static: Poor Balance Sitting Dynamic: Poor Balance-Standing Static: Poor Picking up an Object (QC): 88 Occupational Therapy Pt admitted to ARU s/p CVA. At [facility], pt was independent with ADLs and functional mobility using a cane or walker. Upon initial evaluation, pt required min-mod A with eating, oral care, showering and UE dressing, max A with LE dressing and footwear and total assist with toileting. OT tx focused on increasing BUE strength and activity tolerance, increasing safety and independence with ADLS and functional mobility, and neuromuscular reeducation. Pt mad some functional progress, increasing oral care score from min-mod A to SBA, & oral care improved to IND. Pt had a decline in LE dressing, requiring total assist by discharge. Pt attained LTG for oral care. Pt discharging to SNF today, d/c from OT. Decreased Activ Tolerance, Decreased UE Strength, Impaired Self-Care Skills, Restricted Funct UE ROM Eating (QC): 4 (Set up to open packages/containers. Uses regular utensils independently. Cues to slow down and swallow b/t bites.) Oral Hygiene (QC): 6 Shower/Bathe Self (QC): 3 Upper Body Dressing (QC): 3 Lower Body Dressing (QC): 1 On/Off Footwear (QC): 2 Toileting Hygiene (QC): 1 PT It Technician Goals It Technician Goals PT [facility] Goals Time Frame: May 30, 2022 Roll Left to Right (QC): 4 Sit to Lying (QC): 4 Lying-Sitting on Side/Bed(QC): 4 Sit to Stand (QC): 2 Chair/Ehv-wj-Qfyje Xfer(QC): 2 Toilet/Commode Transfer (QC): 2 Car Transfer (QC): 2 Does the Patient Walk: No and Walking Goal NOT indicated Walk 10 feet (QC): 88 Walk 10ft-Uneven Surface(QC): 88 Walk 50ft with 2 Turns (QC): 88 Walk 150 ft (QC): 88 Wheel 50 feet with 2 turns (QC: 4 (SBA) Wheel 150 feet: 4 (SBA) 1 Step (curb) (QC): 88 4 Steps (QC): 88 12 Steps (QC): 88 Picking up an Object (QC): 88 OT It Technician Goals [facility] Goals Time Frame: Jun 15, 2022 Acute change in mental status: 0 Inattention: 0 Disorganized thinkin Altered level of consciousness: 0 Eating (QC): 5 (not met) Oral Hygiene (QC): 5 (met) Toileting Hygiene (QC): 6 (not met) Shower/Bathe Self (QC): 4 (not met) Upper Body Dressing (QC): 5 (not met) Lower Body Dressing (QC): 5 (not met) On/Off Footwear (QC): 5 (not met) Additional Goals: 1-Demonstrate ADL Tasks, 2-Verbalize Understanding, 3- ImproveStrength/Ha 1=Demonstrate adherence to instructed precautions during ADL tasks. 2=Patient will verbalize/demonstrate understanding of assistive devices/modifications for ADL. 3=Patient will improve strength/tolerance for activity to enable patient to perform ADL's. Speech [facility] Goals It Technician Goals 1. The patient will improve cognitive linguistic skills for safe discharge to the least restrictive environment. MET: The patient will discharge to a shelter facility at this time. The patient made positive gains towards language, speech, and dysphagia goals, continuing to display progress at the time of her discharge date. Time Frame: Three Weeks. ROSA NEGRETE OT May 28, 2022 13:59
--- NOTE | 2022-05-28 16:06 | Therapy Team Discharge Summary ---
Therapy Discharge Summary Discharge Recommendations Date of Discharge May 28, 2022 at 13:30 Physical Therapy Patient received PT services on the ARU for CVA. At time of D/C, patient was a max (A) of 2 for transfers and for standing in // bars. She was able to perform supine>sit mod (A). She did have active movement in the (R) LE, but was unable to move LE's when standing in // bars. Recommend SNF care due to patient's acuity and family unable to safely perform transfers and provide care for patient in the home. Patient was min (A) to propel W/C 50 and 150'. Roll Left to Right (QC): 3 Sit to Lying (QC): 3 Lying to Sitting/Side of Bed(Q: 3 Sit to Stand (QC): 3 Chair/Kfs-tv-Urnxs Xfer(QC): 1 Toilet Transfer (QC): 1 Car Transfer (QC): 88 Does the Patient Walk: No and Walking Goal NOT indicated Mode of Locomotion: Wheelchair Anticipated Mode of Locomotion: Wheelchair Walk 10 feet (QC): 88 Walk 50 ft with 2 Turns(QC): 88 Walk 150 ft (QC): 88 Walking 10ft on uneven surface: 88 Distance: 10' Gait Assistive Device: None Does the Pt Use a Wheelchair: Yes Wheelchair Distance: 50' Wheel 50 ft with 2 turns (QC): 3 Wheel 150 ft (QC): 3 Type of Wheelchair: Manual 1 Step (curb) (QC): 88 4 Steps (QC): 88 12 Steps (QC): 88 Balance Sitting Static: Good Balance Sitting Dynamic: Fair Balance-Standing Static: Poor Picking up an Object (QC): 88 Occupational Therapy Decreased Activ Tolerance, Decreased UE Strength, Impaired Self-Care Skills, Restricted Funct UE ROM Eating (QC): 4 (Set up to open packages/containers. Uses regular utensils independently. Cues to slow down and swallow b/t bites.) Oral Hygiene (QC): 6 Shower/Bathe Self (QC): 3 Upper Body Dressing (QC): 3 Lower Body Dressing (QC): 1 On/Off Footwear (QC): 2 Toileting Hygiene (QC): 1 PT Landscape Crew Member Goals Prison Goals PT Prison Goals Time Frame: May 30, 2022 Roll Left to Right (QC): 4 Sit to Lying (QC): 4 Lying-Sitting on Side/Bed(QC): 4 Sit to Stand (QC): 2 Chair/Mmu-lb-Hzafz Xfer(QC): 2 Toilet/Commode Transfer (QC): 2 Car Transfer (QC): 2 Does the Patient Walk: No and Walking Goal NOT indicated Walk 10 feet (QC): 88 Walk 10ft-Uneven Surface(QC): 88 Walk 50ft with 2 Turns (QC): 88 Walk 150 ft (QC): 88 Wheel 50 feet with 2 turns (QC: 4 (SBA) Wheel 150 feet: 4 (SBA) 1 Step (curb) (QC): 88 4 Steps (QC): 88 12 Steps (QC): 88 Picking up an Object (QC): 88 W/C propulsion goals met. Bed mobility goals not met (remains mod (A)) and transfer goals not met (patient requires max (A) of 2). OT Landscape Crew Member Goals Landscape Crew Member Goals Time Frame: Jun 15, 2022 Acute change in mental status: 0 Inattention: 0 Disorganized thinkin Altered level of consciousness: 0 Eating (QC): 5 (not met) Oral Hygiene (QC): 5 (met) Toileting Hygiene (QC): 6 (not met) Shower/Bathe Self (QC): 4 (not met) Upper Body Dressing (QC): 5 (not met) Lower Body Dressing (QC): 5 (not met) On/Off Footwear (QC): 5 (not met) Additional Goals: 1-Demonstrate ADL Tasks, 2-Verbalize Understanding, 3- ImproveStrength/Ha 1=Demonstrate adherence to instructed precautions during ADL tasks. 2=Patient will verbalize/demonstrate understanding of assistive devices/modifications for ADL. 3=Patient will improve strength/tolerance for activity to enable patient to perform ADL's. Speech Landscape Crew Member Goals Prison Goals 1. The patient will improve cognitive linguistic skills for safe discharge to the least restrictive environment. MET: The patient will discharge to a penitentiary facility at this time. The patient made positive gains towards language, speech, and dysphagia goals, continuing to display progress at the time of her discharge date. Time Frame: Three Weeks. Lindsay Limon PT May 28, 2022 16:06
== END 2022-05-28 13:30 | DRG 57 ==
PROVIDERS: ADMIT Internal Medicine; ATTEND Internal Medicine
DX: I69.351 Hemiplegia and hemiparesis following cerebral infarction affecting right dominant side (principal); I69.392 Facial weakness following cerebral infarction; I69.322 Dysarthria following cerebral infarction; I69.321 Dysphasia following cerebral infarction; I69.328 Other speech and language deficits following cerebral infarction; I10 Essential (primary) hypertension; I16.0 Hypertensive urgency; E11.9 Type 2 diabetes mellitus without complications; F41.9 Anxiety disorder, unspecified; F32.A Depression, unspecified; Z91.81 History of falling; Z79.82 Long term (current) use of aspirin; Z79.899 Other long term (current) drug therapy
CPT/HCPCS: 36415; 70551; 74230; 80053; 82947; 84443; 85025; 93880

== ENCOUNTER → 2022-08-04 | Outpatient (CLI) | payer MEDICARE, OTHER ==
[~2022-08-04] MED LIST changes: +ACET325T49 PO; +AMLO-251 PO; +ASPI-808 PO; +ATOR80TA76 PO; +ENOX40DI8 SC; -HOLD METFORMIN - RECEIVED CONTRAST 20 ML VIAL IV SCH; +INSU100I14 SQ; +INSU100I30 SQ; +LOSA50TA63 PO; +METF-397 PO; +NEED-474 MC; +SENN-271 PO
--- NOTE | 2022-08-04 11:33 | Diagnostic Imaging Report ---
Indication: Dysphagia. Procedure was performed in conjunction with speech pathology. Video fluoroscopy was performed during the swallowing of barium in multiple consistencies. 0.5 minutes of fluoroscopic time was utilized. Patient ingested thin barium as well as applesauce and cracker consistency without difficulty. No penetration or aspiration was observed. There is normal laryngeal elevation and epiglottic tilt. IMPRESSION: Unremarkable modified barium swallow study. Dictated by: Dictated on workstation # [id number]
== END ==
LOC: RAD 09:58 → EDSTATUS 10:30
PROVIDERS: ATTEND Internal Medicine
DX: R13.10 Dysphagia, unspecified (principal)
CPT/HCPCS: 74230

== ENCOUNTER → 2022-10-05 | Outpatient (CLI) | payer MEDICARE, OTHER ==
[2022-10-05 15:29] LABS: CLARITY,URINE CLEAR; COLOR,URINE YELLOW
[2022-10-05 15:30] LABS: BACTERIA,URINE LARGE /HPF; BILIRUBIN,URINE NEGATIVE (NEGATIVE); GLUCOSE, URINE (UA) NEGATIVE (NEGATIVE); KETONES,URINE NEGATIVE (NEGATIVE); LEUKOCYTE ESTERASE ,URINE 3+ (NEGATIVE); NITRITE,URINE POSITIVE (NEGATIVE); PROTEIN,URINE NEGATIVE (NEGATIVE); SQUAMOUS EPITHELIAL CELL,UR 0-2 /HPF; WBC,URINE 50-100 /HPF
== END ==
LOC: LABNPT 15:12
PROVIDERS: ATTEND Nurse Practitioner Gerontology
DX: Z01.89 Encounter for other specified special examinations (principal)
CPT/HCPCS: 81000; 87088

== ENCOUNTER → 2022-11-03 | Outpatient (CLI) | payer MEDICARE, OTHER ==
[2022-11-03 15:17] LABS: AMORPHOUS SEDIMENT,UR FEW AMOR URATES /LPF; BACTERIA,URINE MODERATE /HPF; BILIRUBIN,URINE NEGATIVE (NEGATIVE); CLARITY,URINE CLEAR; COLOR,URINE YELLOW; GLUCOSE, URINE (UA) NEGATIVE (NEGATIVE); KETONES,URINE NEGATIVE (NEGATIVE); LEUKOCYTE ESTERASE ,URINE NEGATIVE (NEGATIVE); NITRITE,URINE NEGATIVE (NEGATIVE); PROTEIN,URINE TRACE (NEGATIVE)
== END ==
LOC: CVS 14:45
PROVIDERS: ATTEND Internal Medicine
DX: R30.0 Dysuria (principal)
CPT/HCPCS: 81000; 87088